=== PATIENT | female | born 1990 ===

== ENCOUNTER 2023-07-26 05:54 | Outpatient (CLI) | payer OTHER, SELFPAY ==
[2023-07-26 09:43] LABS: Abs Immature Grans 0.01 10^3/uL (0.0-0.06); Absolute Basophil Count 0.05 10^3/uL (0.0-0.2); Absolute Eosinophil Count 0.11 10^3/uL (0.0-0.7); Absolute Lymphocyte Count 2.25 10^3/uL (1.2-3.4); Absolute Neutrophil Count 3.95 10^3/uL (1.2-6.7); Basophils % 0.7; Eosinophils % 1.6; HCT 40.7 % (36.0-46.0); HGB 12.9 g/dL (11.2-15.7); Immature Grans % 0.1; Lymphocytes % 33.2; MCH 27.6 pg (27.0-33.0); MCHC 31.7 % (32.0-36.0); MCV 87 fL (80-95); MPV 9.9 fL (8.0-11.0); Monocytes % 5.9; Neutrophils % 58.5; Platelet Count 293 10^3/uL (130-400); RBC 4.68 10^6/uL (3.93-5.22); RDW 13.5 % (11.7-14.6); RDW-SD 42.5 fL; WBC 6.77 10^3/uL (4.4-10.8)
[2023-07-26 10:04] LABS: Hemoglobin A1C 5.4 % (<5.7)
[2023-07-26 10:28] LABS: Cholesterol 232 mg/dL (<200); HDL Cholesterol 40 mg/dL (40-60); LDL CHOLESTEROL 138 mg/dL (<100)
[2023-07-26 10:41] LABS: ALT 35 U/L (14-59); AST 12 U/L (15-37); BUN 11 mg/dL (7-18); Bilirubin, Total 0.2 mg/dL (0.2-1.0); CO2 25.5 mmol/L (21.0-32.0); CREATININE 0.9 mg/dL (0.55-1.02); Chloride 103 mmol/L (98-107); Estimated GFR 86.57 (mL/min/1.73m2); Glucose 91 mg/dL (74-106); Sodium 138 mmol/L (136-145); TSH 2.52 uIU/Ml (0.36-3.74)
[2023-07-26 10:53] LABS: Vitamin D 25 Total 30.5 ng/mL (30-100)
[2023-07-26 10:57] LABS: FREE T4 0.99 ng/dL (0.76-1.46); GGT 18 U/L (5-55); LDH 135 U/L (81-234)
[2023-07-26 17:51] LABS: T3, Total 164 ng/dL (97-169)
[2023-07-26 21:59] LABS: Prolactin 16.7 ng/mL (See Note)
== END 2023-07-26 05:55 | disposition home or self-care (01) ==
LOC: LBO 05:54
PROVIDERS: Visit Provider Family Medicine
DX: Z79.899 Other long term (current) drug therapy (principal); E55.9 Vitamin D deficiency, unspecified
CPT/HCPCS: 36415; 82306; 82947; 83721; 84520; 82247; 82374; 82435; 82465; 82565; 82977; 83036; 83615; 83718; 84132; 84146; 84295; 84439; 84443; 84450; 84460; 84480; 85025

== ENCOUNTER 2023-10-13 10:08 | Outpatient (REF) | payer OTHER, SELFPAY ==
--- OUTSIDE RECORDS SUMMARY | 2023-10-13 10:10 | XMS_ITS | Encounter Summary ---
[place] [address] Care Team Providers Care Building Carpenter Name Role Phone Saurabh Bishop MD Primary Care Provider [phone] Encounter Details Date Type Department Care Team (Late st Contact Info) Description 07/12/2023 Abstract Cardiology at [address] [place] [address] Alexia Barbour, RN Social History Tobacco Use Types Packs/Day Years Used Date Smoking Tobacco: Former Cigarettes 1 10 Smokeless Tobacco: Never Tobacco Cessation:Counseling Given: Not Answered Alcohol Use Standard Drinks/Week Comments Yes 0 (1 standard drink = 0.6 oz pur e alcohol) 3 times a week DH IPV Inpatient Questions Answer Date Recorded Does Anyone Try to Keep You From Having Contact with Others or Doing Things Outside Your Home? no 07/08/2023 Feels Threatened by Someone no 06/26 Feels Unsafe at Home or Work/School no 07/08/2023 Physical Signs of Abuse Present no 07/08/2023 Sex and Gender Information Value Date Recorded Sex Assigned at Not on file Gender Identity Not on file Sexual Orientation Not on file documented as of this encounter Plan of Treatment Not on file documented as of this encounter Visit Diagnoses Not on filedocumented in this encounter Care Teams Building Carpenter Relationship Specialty Start Date End Date Saurabh Bishop MD [address] [place], [place] [id number] PCP - General Family Medicine 07/08/23 documented as of this encounter
--- OUTSIDE RECORDS SUMMARY | 2023-10-13 10:10 | XMS_ITS | Encounter Summary ---
Author Organization [facility] [place] [address] Care Team Providers Care Director Staffing Name Role Phone Saurabh Bishop MD Primary Care Provider [phone] Encounter Details Date Type Department Care Team (Latest Contact Info) Description 09/11/2023 Travel Social History Tobacco Use Types Packs/Day Years Used Date Smoking Tobacco: Former Cigarettes 1 10 Smokeless Tobacco: Never Alcohol Use Standard Drinks/Week Comments Yes 0 [...] on filedocumented in this encounter Care Teams Director Staffing Relationship Specialty Start Date End Date Saurabh Bishop MD [address] [place] [address] PCP - General Family Medicine 07/08/23 documented as of this encounter
--- OUTSIDE RECORDS SUMMARY | 2023-10-13 10:10 | XMS_ITS | Encounter Summary ---
Author Organization Formerly [facility] Address One [facility] [address] Care Team Providers Care Cofounder Name Role Phone Unavailable Primary Care Provider Unavailabl e Encounter Details Date Type Department Care Team (Late st Contact Info) Description 01/01/2013 Interpretation Only Radiology [address] [facility] [id number] Unknown None Social History Tobacco Use Types Packs/Day Years Used Date Smoking Tobacco: Never Assessed Sex and Gender Information Value Date Recorded Sex Assigned at Not on file Gender Identity Not on file Sexual Orientation Not on file documented as of this encounter Plan of Treatment Not on file documented as of this encounter Procedures Procedure Name Priority Date/Time Associated Diagnosis Comments US OB FOLLOW UP MULTIPLE Routine 01/01/2013 3:41 PM EDT documented in this encounter Results * US OB Follow Up Multiple (01/01/2013 3:41 PM EDT) Anatomical Region Laterality Modality Pelvis, Abdomen Ultrasound 01/01/2013 3:41 PM EDT Narrative 01/01/2013 3:41 PM EDT APD Historical Result Principal It Risk And Assurance Senior Manager: ??ALMA DELIA ??LEROY [facility] OBSTETRICAL ULTRASOUND REPORT ? -------- Pat. Name: EDITH BRAUN Cecil ?Study Date: ?? 01/01/2013 4:12pm Pat. No: ?? [id number] ?Referring MD: CESILIA RODRIGUEZ^ABISAI^J LMP: ? 07/29/2012 ?Certification Engineer: ??Hellen VALENTINE RDMS GA by LMP: 22.3 weeks ?, Age: ? 1990, 22 GA by 1st: 22.2 weeks ?GA Selected: ??22.2 weeks (From [facility] U) GA by US: ?ELENA: ?05/06/2013 Hist/Ind: ??COMPLETION OF SURVEY -------- MEASUREMENTS & AGE ? GROWTH EVALUATION Measurement ?? GA ? Range ?Source ?? % for 22.2 Ratios ------- ------- ?? -------- CLINICAL SUMMARY TRANSABDOMINAL IMAGING WAS PERFORMED MARTELL INTRAUTERINE GESTATION IN CEPHALIC PRESENTATION HEART RATE: 157 /bpm. PLACENTAL LOCATION is posterior. INFERIOR TIP OF PLACENTA MEASURES 3.9 CM FROM THE INTERNAL OS. THE AMNIOTIC FLUID VOLUME IS SUBJECTIVELY ?? NORMAL MORPHOLOGY: Images of LONG spine IDENTIFIED, but LIMITED. Stomach, kidneys and bladder IDENTIFIED. MOTION NOTED. MATERNAL OVARIES NOT SEEN ON TODAYS EXAM IMPRESSION: SURVEY INCOMPLETE, SPINE IMAGES STILL LIMITED. Hellen VALENTINE RDMS ? Alma Delia Quinn MD ? <Electronic Signature> 01/02/2013 Procedure Note Unknown - 09/25/2018 APD Historical Result Principal It Risk And Assurance Senior Manager: ALMA DELIA Castellanos [facility] OBSTETRICAL ULTRASOUND REPORT Pat. Name: EDITH BRAUN Study Date: 01/01/2013 4:12pm Pat. No: [id number] Referring MD: CARINE^ABISAI^J LMP: 07/29/2012 Certification Engineer: Hellen VALENTINE RDMS GA by LMP: 22.3 weeks , Age: 1 1990, 22 GA by 1st: 22.2 weeks GA [facility]: [facility] GA by US: ELENA: 05/06/2013 Hist/Ind: COMPLETION OF SURVEY MEASUREMENTS & AGE GROWTH EVALUATION Measurement GA Range Source % for 22.2 Ratios ------- ------- CLINICAL SUMMARY TRANSABDOMINAL IMAGING WAS PERFORMED MARTELL INTRAUTERINE GESTATION IN CEPHALIC PRESENTATION HEART RATE: 157 /bpm. PLACENTAL LOCATION is posterior. INFERIOR TIP OF PLACENTA MEASURES 3.9 CMFROM THE INTERNAL OS. THE AMNIOTIC FLUID VOLUME IS SUBJECTIVELY NORMAL MORPHOLOGY: Images of LONG spine IDENTIFIED, but LIMITED. Stomach, kidneys and bladder IDENTIFIED. MOTION NOTED. MATERNAL OVARIES NOT SEEN ON TODAYS EXAM IMPRESSION: SURVEY INCOMPLETE, SPINE IMAGES STILL LIMITED. JYOTHI BILLS MD <Electronic Signature> 01/02/2013 Unknown IMG US OB ORDERABLES documented in this encounter Visit Diagnoses Not on filedocumented in this encounter
--- OUTSIDE RECORDS SUMMARY | 2023-10-13 10:10 | XMS_ITS | Clinical Summary ---
Author Organization Formerly [facility] [place] [address] Care Team Providers Care Refractory Repairer Name Role Phone Saurabh Bishop MD Primary Care Provider [phone] Allergies Active Allergy Reactions Criticality Noted Date Comments Adhesive Rash Medium 07/08/2023 Iodine Shortness Of Breath,Rash High 07/08/2023 Kiwi (Actinidia Chinensis) Diarrhea Medium 07/08/2023 Lamotrigine Rash Medium 07/08/2023 Jayton Analogues 09/15/2023 Body pain Quetiapine Other (See Comments) High 07/13/2023 Suicidal ideation Medications Medication Sig Dispensed Refills Start Date End Date Status buPROPion SR (Wellbutrin SR) 200 mg SR 12 hr tablet Take 200 mg by mouth 2 times daily. Active gabapentin (Neurontin) 100 mg capsule Take 300 mg by mouth nightly. 08/29/2020 Active Magnesium Oxide 250 mg magnesium Tablet Take 250 mg by mouth Daily @ 0600. Active VITAMIN B COMPLEX ORAL Take 1 capsule by mouth Daily @ 0600. Active famotidine (Pepcid) 20 mg tablet Take 20 mg by mouth 2 times daily. Active brexpiprazole (Rexulti) 3 mg tablet Take 1.5 tablets by mouth Daily @ 0600. 10/04/2022 Active risperiDONE (RisperDAL) 1 mg tablet Take 1 mg by mouth 2 times daily. Active albuteroL 90 mcg/actuation inhaler (HFA) Inhale 2 puffs into the lungs 4 times daily. Active diazePAM (Valium) 5 mg tablet Take 2.5 mg by mouth once as needed. 08/13/2022 Active traZODone (Desyrel) 50 mg tablet Take 50 mg by mouth nightly as needed for Sleep. Active Cholecalciferol, Vitamin D3, 125 mcg (5,000 unit) Capsule Take 5,000 Units by mouth Daily @ 0600. Active acetaminophen (Tylenol) 500 mg tablet Take 1,000 mg by mouth every 6 hours as needed for Pain. Active brexpiprazole (Rexulti) 3 mg tablet Take 1.5 mg by mouth daily. Active bupropion HCl (WELLBUTRIN XL ORAL) Take 100 mg by mouth daily. Active hydrOXYzine (Atarax) 25 mg tablet Take 25 mg by mouth nightly. Active magnesium carb,citrate,oxide (MAGNESIUM COMPLEX ORAL) Take 1 tablet by mouth daily. Active ubiquinone (Ubiquinone) 10 mg capsule Take 100 mg by mouth 2 times daily. Active TURMERIC ORAL Take 1 tablet by mouth daily. Active melatonin 5 mg tablet Take 5 mg by mouth nightly as needed. Active cetirizine (ZyrTEC) 10 mg tablet Take 10 mg by mouth daily. Active loratadine (Claritin) 10 mg Tablet Take 10 mg by mouth daily. Active risperiDONE (RisperDAL) 0.25 mg tablet Take 0.25-1 mg by mouth daily as needed. 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 Rare PAC's/PVC's. Symptoms correlated with sinus tachycardia. b. Echocardiogram 10/14/2008: Normal Biventricular function with LVEF=60-65%. No significant valvular disease. Encounters Date Type Department Care Team Description 09/15/2023 3:20 PM EDT Office Visit Cardiology at [address] [address] Julius Mcrae MD Near syncope 09/15/2023 Travel 09/11/2023 Travel 09/06/2023 Abstract Cardiology at [address] [address] Flor Garcia RN from Last 3 Months Family History Medical History Relation Comments Bipolar Disorder Brother Obesity Brother Sleep Apnea Brother Arrhythmia Father Bipolar Disorder Father Cerebrovascular Accident Father Coronary Artery Disease Father Hyperlipidemia Father Hypertension Father Myocardial Infarction Father Rheumatoid Arthritis Mother Abdominal Aortic Aneurysm Paternal Grandmother No Known Problems Son Relation Status Comments Brother Father Alive Mother Alive Paternal Grandmother Son Alive Social History Tobacco Use Types Packs/Day Years [...] on file Sexual Orientation Not on file Last Filed Vital Signs Vital Sign Reading Time Taken Comments Blood Pressure 123/93 09/15/2023 3:42 PM EDT Pulse 96 09/15/2023 3:33 PM EDT per e cg Temperature 36.7 ??C (98.1 ??F) 07/08/2023 9:54 PM ED T Respiratory Rate 18 07/09/2023 1:00 AM EDT Oxygen Saturation 99% 07/09/2023 1:00 AM EDT Inhaled Oxygen Concentration - - Weight 110.2 kg (243 lb) 09/15/2023 3:33 PM EDT Height 175.3 cm (5' 9) 09/15/2023 3:33 PM EDT Body Mass Index 35.88 09/15/2023 3:33 PM EDT Plan of Treatment Health Maintenance Due Date Last Done Comments HIV screen 2008 Hepatitis C Screening 2008 Lipid Screening 2008 Hepatitis B vaccine (0-59 yrs) (1) 2009 Tdap adult 2009 Tetanus vaccine 2009 HPV test 2020 PAP Smear 2020 Covid-19 Vaccine ( season) 2022 Influenza (Flu) vaccine (1 o f 1 - Influenza standard series) 11/27/2023 Procedures Procedure Name Priority Date/Time Associated Diagnosis Comments ECG SCAN 09/15/2023 12:00 AM EDT from Last 3 Months Results * Scan Doc: ECG (09/15/2023 12:00 AM EDT) Narrative 09/15/2023 12:00 AM EDT Ordered by an unspecified provider. Scanning Provider MEDIA MGR SCAN EXT O RDR/RSLT from Last 3 Months Care Teams Refractory Repairer Relationship Specialty Start Date End Date Saurabh Bishop MD [address] [place], [place] [id number] PCP - General Family Medicine 07/08/23
--- OUTSIDE RECORDS SUMMARY | 2023-10-13 10:10 | XMS_ITS | Encounter Summary ---
Author Organization [facility] [place] [address] Care Team Providers Care Ethanol Operations Manager Name Role Phone Saurabh Bishop MD Primary Care Provider [phone] Encounter Details Date Type Department Care Team (Latest Contact Info) Description 07/08/2023 Travel Social History Tobacco Use Types Packs/Day Years Used Date Smoking Tobacco: Never Smokeless Tobacco: Never Alcohol Use Standard Drinks/Week [...] on filedocumented in this encounter Care Teams Ethanol Operations Manager Relationship Specialty Start Date End Date Saurabh Bishop MD [address] [place] [address] PCP - General Family Medicine 07/08/23 documented as of this encounter
--- OUTSIDE RECORDS SUMMARY | 2023-10-13 10:10 | XMS_ITS | Encounter Summary ---
[place] [address] Care Team Providers Care Delivery Driver/Customer Service Name Role Phone Unavailable Primary Care Provider Unavailabl e Encounter Details Date Type Department Care Team (Late st Contact Info) Description 05/10/2013 Orders Only Radiology and Cardiology Results [address] [place] [address] Apd Conversion, Results Provider, Social History Tobacco Use Types Packs/Day Years Used Date Smoking Tobacco: Never Assessed Sex and Gender Information Value Date Recorded Sex Assigned at Not on file Gender Identity Not on file Sexual Orientation Not on file documented as of this encounter Plan of Treatment Not on file documented as of this encounter Procedures Procedure Name Priority Date/Time Associated Diagnosis Comments TYPE AND SCREEN ([facility]) Routine 05/10/2013 6:04 AM EST documented in this encounter Results * (ABNORMAL) Type and screen ([facility]) (05/10/2013 6:04 AM EST) ABO Grouping O(Externa l Lab) ABO ALYSON S[place] DAY CONVERSION Rh POSITIVE( External Lab) ALYS[place] DAY CONVERSION AB Screen Interp NEGATIVE( External Lab) NEGATIVE ALYSON S[place] DAY CONVERSION Armband Identification [id number]( External Lab) ALYSON [place] DAY CONVERSION 05/10/2013 6:04 AM EST Results Provider Apd Conversion MD BLOOD BANK LAB ORDERABLES ALYSON WILIAM DAY CONVERSION documented in this encounter Visit Diagnoses Not on filedocumented in this encounter
--- OUTSIDE RECORDS SUMMARY | 2023-10-13 10:10 | XMS_ITS | Encounter Summary ---
Author Organization [facility] Address [facility] [place] [address] Care Team Providers Care Manager Storage Name Role Phone Unavailable Primary Care Provider Unavailabl e Reason for Visit * Reason Comments Skin Check Encounter Details Date Type Department Care Team (Late st Contact Info) Description 11/21/2013 2:00 PM EDT Office Visit Dermatology at [facility] [address] [place] [address] Becky Huffman MD [facility] DR [facility] ASTUDILLO[facility] [address] Congenital nevus (Primary Dx); Multiple benign nevi; Family history of basal cell carcinoma Discharge Disposition: Home Social History Tobacco Use Types Packs/Day Years Used Date Smoking Tobacco: Former Sex and Gender Information Value Date Recorded Sex Assigned at Not on file Gender Identity Not on file Sexual Orientation Not on file documented as of this encounter Progress Notes * Thomas Tellez MD - 11/23/2013 11:54 AM EDT I directly supervised Dr. Huffman in the care of this patient. I saw and evaluated this patient with Dr. Huffman. She presented the history and physical exam detailsto me, then we saw the patient together and I confirmed these findings. I agree with details as written. My physical examination confirms Dr. Huffman's findings. The assessment and plan were formulated in discussion with me at the time of visit and I agree with them as documented. THOMAS TELLEZ MD Staff Physician * Becky Huffman MD - 11/21/2013 1:59 PM EDT Images from the original note were not included. DERMATOLOGY - NEW PATIENT NOTE Date of service: 11/21/2013 Ericka Horowitz : 1990 Dermatology Resident Note: Becky Huffman MD, MPH Chief Problem: Chief Complaint Patient presents with ??? Skin Check HPI: Ms. Ericka Horowitz is a 23 y.o. female. This is a new patient to me. Seen in consultation at [facility]ond Terrell MD specifically for the evaluation and management of the above problem. Here today for evaluation of a changing mole on her abdomen, which has been present since that she believes is enlarging. The lesion is currently asymptomatic (no pain, bleeding or pruritus at the site). Reports that during her this mole got bigger. Also reports she has a mole on her right taoism present since that is bothersome to her. Reports that it bleeds when traumatized. She is interested in having this mole removed. She has no personal h/o NMSC or melanoma, but her father has had numerous BCCs and SCCs. She has used a tanning bed once in the past, but now is vigilant about sun protection. She is otherwise doing well. Past Skin History: ?? ?eczema ?? + hx tanning bed usage (once) ?? + hx blistering sunburns Medical History: Patient Active Problem List Diagnosis Code ??? CIS - Asthma T999.0 ??? CIS - Chest pain T999.0 ??? CIS - Gastritis T999.0 ??? CIS - Palpitations T999.0 Medications: Current Outpatient Prescriptions on File Prior to Visit Medication Sig Dispense Refill ??? [DISCONTINUED] pantoprazole (PROTONIX) 40 mg tablet ??? [DISCONTINUED] montelukast (SINGULAIR) 10 mg tablet ??? [DISCONTINUED] Norgestimate-Ethinyl Estradiol (ORTHO TRI-CYCLEN LO) 0.18/0.215/0.25 mg-25 mcg Tab Allergies: Allergies Allergen Reactions ??? 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 Skin: Examination of skin from the waist up was performed. This includes examination of the skin ofthe face, ears, neck, chest, axillae, left and right upper extremities, hands, back, and abdomen. Specific skin findings: 1. Left mid-abdomen: 0.7 cm x 0.5 cm orange-brown papule with even pigmentation pattern under dermoscopy. 2. Right upper lateral forehead: 0.7 cm x 0.7 cm pink fleshy papule with erythematous border (see photo). 3. Multiple, 0.3-0.5 cm, medium-orange/brown, evenly-pigmented macules and papules scattered on trunk and extremities. All with regular pigment pattern on dermoscopy. No pigmented lesions suspicious for melanoma. Photo documentation obtained with patient consent. Back: Right upper forehead: Left mid-abdomen: Diagnosis/Assessment/Treatment Plan: 1. Congenital nevus: left mid-abdomen ?? Reassuring under dermoscopy. Photo obtained. Will continue to monitor clinically. ?? Educated that nevi can change during (bigger, change color) due to hormonal factors, but encouraged her to call if this lesion starts to bleed or become symptomatic. 2. Irritated Congential Nevus, ?Atypia: right upper lateral forehead ?? Appropriate for excision due to irritation. Will start PA to ensure insurance coverage prior to scheduling for excision. 3. Multiple benign-appearing nevi: trunk and extremities ?? Consistent with benign nevi, patient reassured ?? Will continue to monitor Reviewed various types of skin cancer and ABCDEs of melanoma. Skin cancer brochure reviewed and given to patient. Follow-up: RTC in 1 year for full skin check. Instructed to call for questions or concerns. LOIS FAJARDO LPN - I am documenting this encounter acting as the scribe for and in the presence of Dr. Becky Huffman I preformed the above scribed service and agree with the accuracy of the documentation in this encounter. Becky Huffman MD, MPH Resident in Dermatology [facility] Patient seen and evaluated with staff wheel alignment technician: Thomas Tellez MD Section of Dermatology [facility] documented in this encounter Plan of Treatment Not on file documented as of this encounter Visit Diagnoses Diagnosis Congenital nevus- Primary Benign neoplasm of skin, site unspecified Multiple benign nevi Benign neoplasm of skin, site unspecified Family history of basal cell carcinoma Family history of other specified malignant neoplasm documented in this encounter
--- OUTSIDE RECORDS SUMMARY | 2023-10-13 10:10 | XMS_ITS | Encounter Summary ---
Author Organization [facility] Address [facility] [place] [address] Care Team Providers Care Corporate Banking Officer Name Role Phone Saurabh Bishop MD Primary Care Provider [phone] Reason for Visit * Reason Comments Tachycardia Syncope and Collapse Near syncope Encounter Details Date Type Department Care Team (Late st Contact Info) Description 09/15/2023 3:20 PM EDT Office Visit Cardiology at [address] [id number] Julius Mcrae MD [facility] [place] [address] Near syncope Social History Tobacco Use Types Packs/Day Years [...] on file documented as of this encounter Last Filed Vital Signs Vital Sign Reading Time Taken Comments Blood Pressure 123/93 09/15/2023 3:42 PM EDT Pulse 96 09/15/2023 3:33 PM EDT per e cg Temperature - - Respiratory Rate - - Oxygen Saturation - - Inhaled Oxygen Concentration - - Weight 110.2 kg (243 lb) 09/15/2023 3:33 PM EDT Height 175.3 cm (5' 9) 09/15/2023 3:33 PM EDT Body Mass Index 35.88 09/15/2023 3:33 PM EDT documented in this encounter Progress Notes * Julius Mcrae MD - 09/15/2023 3:20 PM EDT Images from the original note were not included. CARDIOLOGY NEW OUTPATIENT PRIMARY CARE PROVIDER: Saurabh Bishop MD PROBLEM LIST: Patient Active Problem List Diagnosis Attention deficit disorder with hyperactivity Hyperlipidemia Near syncope Fibromyalgia Chronic GERD Bipolar disorder Congenital nevus Multiple benign nevi Family history of basal cell carcinoma CIS - Asthma MEDICATIONS: Current Outpatient Medications Medication Instructions acetaminophen (TYLENOL) 1,000 mg, Oral, EVERY 6 HOURS PRN albuteroL 90 mcg/actuation inhaler (HFA) 2 puffs, Inhalation, 4 TIMES DAILY brexpiprazole (Rexulti) 3 mg tablet 1.5 tablets, Oral, DAILY brexpiprazole (REXULTI) 1.5 mg, Oral, DAILY bupropion HCl (WELLBUTRIN XL ORAL) 100 mg, Oral, DAILY buPROPion SR (WELLBUTRIN SR) 200 mg, Oral, 2 TIMES DAILY cetirizine (ZYRTEC) 10 mg, Oral, DAILY Cholecalciferol (Vitamin D3) 5,000 Units, Oral, DAILY diazePAM (VALIUM) 2.5 mg, Oral, ONCE PRN famotidine (PEPCID) 20 mg, Oral, 2 TIMES DAILY gabapentin (NEURONTIN) 300 mg, Oral, NIGHTLY hydrOXYzine (ATARAX) 25 mg, Oral, NIGHTLY loratadine (CLARITIN) 10 mg, Oral, DAILY magnesium carb,citrate,oxide (MAGNESIUM COMPLEX ORAL) 1 tablet, Oral, DAILY Magnesium Oxide 250 mg, Oral, DAILY melatonin 5 mg, Oral, NIGHTLY PRN risperiDONE (RISPERDAL) 1 mg, Oral, 2 TIMES DAILY risperiDONE (RISPERDAL) 0.25-1 mg, Oral, DAILY PRN traZODone (DESYREL) 50 mg, Oral, NIGHTLY PRN TURMERIC ORAL 1 tablet, Oral, DAILY ubiquinone (UBIQUINONE) 100 mg, Oral, 2 TIMES DAILY VITAMIN B COMPLEX ORAL 1 capsule, Oral, DAILY Subjective: Patient ID: Ericka Perdomo is a 33 y.o. female. HPI: 33 F presents on referral from GP for lightheadedness and palpitations. She provides a paper copy of her history; please see Media tab for such Her main issues are the following: - Fatigue, preventing her from being as active as she desires and previously was. This has started since late . With this has been associated caloric weight gain - Palpitations: these are describes as tachypalpitations, dating back to when she was 18. These canlast for the better portion of a day, and may be associated with chest pain - Lightheadedness; noted with postural changes as well as bending forward, and with prolonged standing.. Salt intake, abdominal compression have been found to be beneficial. Uses compression stockings as well Evaluations have including multiple echocardiograms, Holter monitors, stress tests, which have beenunremarkable The aforemetnioned symptoms seem to steadily be getting worse. There is concerned raised of POTS and inappropriate sinus tachycardia There has been no longer-term rhythm monitoring Objective: Patient Vitals for the past 24 hrs: Pulse BP 09/15/23 1533 96 125/81 09/15/23 1542 -- (!) 123/93 Gen: pleasant female in NAD Cor: rrr, s1/s2 of nl character and amplitude, no pathologic m/r/g. Estimated RAP not elevated. Carotids without bruit. Pulm: CTAB. Normal diaphragmatic movement without use of accessory muscles Ext: no reticular veins nor varicosities EK06/2023 (ED with CP): normal EKG Assessment and Plan: I provided reassurance that there is likely nothing nefarious from a cardiac standpoint ongoing given the unremarkable evaluation she has had thus far. There has not been a solid evaluation of the rhythm (especially when she has tachypalpitations associated with chest pain), and thus will obtain a loop recorder (1 month). If there is no symptom-arrhythmia correlation found, then consideration of empiric AVNB can be had. However, I am pessimistic about the drug class' role here. She describes a venous pooling pattern by history, but does not have sequelae of such.) I reviewed my suspicion thatall these symptoms may well be a side effect of the psychotropic medications she is on. However, these have been effective mood stabilizers, so empirically discontinuing them is not an option. I would point out that autonomics can be greatly altered by the presence of psychotropic medications, and thus the diagnosis of POTS or any other primary orthostatic syndrome cannot be reached, including with tilt table testing. The first step is to confirm/refute a symptom-arrhythmia or symptom-HR correlation, as mentioned above. In the meantime, she will continue with compression garments, and increasing sodium intake. I would also point out that per her history, she has gained significant weight even with good exercise routines and dietary habits. RTC pending event monitor Julius Mcrae MD documented in this encounter Plan of Treatment Scheduled Orders Name Type Priority Associated Diagnoses Orde r Schedule Cardiac Event Monitor Cardiac Services Routine Near syncope Expected: 09/15/2023, Expires: 03/16/2024 documented as of this encounter Procedures Procedure Name Priority Date/Time Associated Diagnosis Comments ECG SCAN 09/15/2023 12:00 AM EDT documented in this encounter Results * Scan Doc: ECG (09/15/2023 12:00 AM EDT) Narrative 09/15/2023 12:00 AM EDT Ordered by an unspecified provider. Scanning Provider MEDIA MGR SCAN EXT O RDR/RSLT documented in this encounter Visit Diagnoses Diagnosis Near syncope Syncope and collapse documented in this encounter Care Teams Corporate Banking Officer Relationship Specialty Start Date End Date Saurabh Bishpo MD [address] [place] [address] PCP - General Family Medicine 07/08/23 documented as of this encounter
--- OUTSIDE RECORDS SUMMARY | 2023-10-13 10:10 | XMS_ITS | Encounter Summary ---
[place] [address] Care Team Providers Care Professional Skateboarder Name Role Phone Saurabh Bishop MD Primary Care Provider [phone] Reason for Visit * Reason Comments Chest Pain Encounter Details Date Type Department Care Team ([facility] st Contact Info) Description 07/08/2023 9:44 PM EDT - 07/09/2023 1:40 AM EDT Emergency Emergency Department at [address] [id number] Michael Lorenzo MD [address] [place] [id number] Chest pain, unspecified type Discharge Disposition: Home Social History Tobacco Use Types Packs/Day Years Used Date Smoking Tobacco: Never Smokeless Tobacco: Never Tobacco Cessation:Counseling Given: Not [...] Sign Reading Time Taken Comments Blood Pressure 117/68 07/09/2023 1:00 AM EDT Pulse 79 07/09/2023 1:00 AM EDT Temperature 36.7 ??C (98.1 ??F) 07/08/2023 9:54 PM ED T Respiratory Rate 18 07/09/2023 1:00 AM EDT Oxygen Saturation 99% 07/09/2023 1:00 AM EDT Inhaled Oxygen Concentration - - Weight 108.1 kg (238 lb 6.4 oz) 07/08/2023 9:54 PM EDT Height 175.3 cm (5' 9) 07/08/2023 9:54 PM EDT Body Mass Index 35.21 07/08/2023 9:54 PM EDT documented in this encounter Discharge Instructions * Discharge Instructions* Michael Lorenzo MD - 07/09/2023 1:31 AM EDT You were seen in the emergency department for chest pain, your EKG shows no signs of acute damage, your troponins are normal, your x-ray does not show any acute concerns to my read however the official read will come from radiology tomorrow. I would continue taking Tylenol to see if this helps future episodes, you have a referral to cardiology I would call them to ensure that this happens please come back to emergency department if the pain is different or more intense, not going away, especially if it is lasting more than 10 minutes without stopping. Otherwise I would suggest following up with your primary care team as well going forward. * Attachments The following attachments cannot be sent through Care Everywhere. * Chest Pain ([place]izen [place]) documented in this encounter Medications at Time of Discharge Medication Sig Dispensed Refills Start Date End Date gabapentin (Neurontin) 100 mg capsule Take 300 mg by mouth nightly. 08/29/2020 brexpiprazole (Rexulti) 3 mg tablet Take 1.5 tablets by mouth Daily @ 0600. 10/04/2022 diazePAM (Valium) 5 mg tablet Take 2.5 mg by mouth once as needed. 08/13/2022 buPROPion SR (Wellbutrin SR) 200 mg SR 12 hr tablet Take 200 mg by mouth 2 times daily. PNV NO.115/IRON FUMARATE/FA ( #[id number] ACID ORAL) Take by mouth. 07/12/2023 fish oil-omega-3 fatty acids 1,000 mg Capsule Take 2 g by mouth daily. 07/12/2023 krill oil 500 mg Capsule Take by mouth. 0 07/12/2023 ranitidine (ZANTAC) 150 mg Tablet Take 150 mg by mouth 2 times daily. 07/12/2023 documented as of this encounter ED Notes * Michael Lorenzo MD - 07/08/2023 11:34 PM EDT Chief Complaint Patient presents with Chest Pain History obtained from: [] patient [] patient and family [] family [] EMS [] alf paperwork [] External records in Epic reviewed, when available. Additional records obtained from [] also reviewed. HPI Patient is a previously healthy 33-year-old female who has a referral for cardiology due to no inappropriate tachycardia in the past, states she has had daily chest pain for 4 months presents today with chest pain. Patient states that today chest pain was different, she states that she had associated left jaw and left arm pain however those did not seem to be correlating to her chest pain they seem to be separate, chest pain lasted between 30 seconds and 60 seconds and was described as a squeezing pain in the left chest. In the past has occasionally gone to the left shoulder blade, she has nopain at this time. She states that she normally gets chest pain for few seconds that goes away however with the jaw pain in the left arm pain and slight shortness of breath she became worried so wanted to get evaluated. She states exertion does not make it worse, seen does make her shortness of breath worse however she is not having worsening pain with deep breaths. Allergies Allergen Reactions Iodine Shortness Of Breath and Rash Adhesive Rash Kiwi (Actinidia Chinensis) Diarrhea Lamotrigine Rash Pertinent Past Medical and Surgical Histories, Social History, Medications, Allergies were reviewedin the chart. Review of Systems as per HPI. Physical Exam Vitals and nursing note reviewed. Constitutional: General: She is not in acute distress. Appearance: She is well-developed. She is not diaphoretic. HENT: Head: Normocephalic and atraumatic. Right Ear: External ear normal. Left Ear: External ear normal. Nose: Nose normal. No congestion. Eyes: Conjunctiva/sclera: Conjunctivae normal. Cardiovascular: Rate and Rhythm: Normal rate and regular rhythm. Pulses: Normal pulses. Heart sounds: Normal heart sounds. Comments: Radial pulses equal, dopplerable pulses and bilateral feet equal with PT and DP Pulmonary: Effort: Pulmonary effort is normal. No respiratory distress. Breath sounds: Normal breath sounds. No wheezing or rales. Abdominal: General: Abdomen is flat. There is no distension. Palpations: Abdomen is soft. Tenderness: There is no abdominal tenderness. There is no guarding or rebound. Musculoskeletal: Cervical back: Neck supple. Right lower leg: No edema. Left lower leg: No edema. Skin: General: Skin is warm and dry. Neurological: Mental Status: She is alert and oriented to person, place, and time. Cranial Nerves: No cranial nerve deficit. Procedures MDM Presents with less than 1 minute squeezing chest pain in the left chest nonexertional, she has had similar symptoms in the past however not this severe, it seems that these come and spells where theyget slowly better with time. She did have an episode while I was talking to her and she had no changes on her cardiac telemetry during it. Patient able to be PERCed out. He has equal pulses in all extremities, not ripping pain, not currently go to the back, unlikely to be dissection. She does admitthat this seems to be seasonal as every year she seems to have a worsening at about this time of year. She does have a previously placed cardiology referral for inappropriate tachycardia at times. EKG initially showed a possible incomplete right bundle however it was deemed that she had the stick is placed in the wrong spot so this was repeated, second EKG shows rate of 77 with normal intervals sinus rhythm without ST elevations or ST depressions no pathologic Q waves or abnormal inverted T waves. Unable to see EKGs from facilities however the reads on them state normal sinus rhythm as well. Troponin negative at 0-hour samir which technically ruled out but in an abundance of caution To 1 hour which also was within normal limits. She feels better at this time, I did advise coming back for any worsening or any changes, she is agreeable with this plan and is happy to be going home, all questions were answered. She will follow-up with cardiology and her primary care provider. ED Course: XR Chest PA & Lateral (Generic) (Results Pending) Did this case involve critical care? No No diagnosis found. Michael Lorenzo MD 07/09/23 0153 documented in this encounter Plan of Treatment Not on file documented as of this encounter Procedures Procedure Name Priority Date/Time Associated Diagnosis Comments EKG 12-LEAD STAT 07/09/2023 1:19 AM EDT HC VENIPUNCTURE Timed 07/09/2023 12:16 AM EDT XR CHEST PA AND LATERAL STAT 07/09/2023 12:08 AM EDT GOLD TUBE HOLD Routine 07/08/2023 11:21 PM EDT BLUE TUBE HOLD Routine 07/08/2023 11:21 PM EDT HC TROPONIN T STAT 07/08/2023 11:19 PM EDT HC CBC,PLT & AUTO DIFF STAT 11:19 PM EDT HC CHORIONIC GONADOTROPINS, SERUM STAT 07/08/2023 11:19 PM EDT COMPREHENSIVE METABOLIC PANEL (NON-FASTING) STAT 07/08/2023 11:19 PM EDT HEMOGRAM STAT 07/08/2023 11:16 PM EDT DIFFERENTIAL, AUTOMATED STAT 07/08/2023 11:16 PM EDT EKG 12-LEAD STAT 07/08/2023 9:52 PM EDT SCAN DOC - EKG PRELIM 07/08/2023 12:00 AM EDT documented in this encounter Results * EKG 12 Lead (07/09/2023 1:19 AM EDT) Ventricular rate 77 BPM MUSE SYSTEM Atrial Rate 77 BPM MUSE SYSTEM P-R Interval 162 ms MUSE SYSTEM QRS Duration 92 ms MUSE SYSTEM Q-T Interval 398 ms MUSE SYSTEM QTC Calculated (Bezet) 450 ms MUSE SYSTEM Calculated P [place] 39 degrees MUSE SYSTEM Calculated R [place] 39 degrees MUSE SYSTEM Calculated T [place] 43 degrees MUSE SYSTEM INTERPRETATION Normal sinus rhythm Normal ECG When compared with ECG of 08-JUL-2023 21:52, No significant change was found Confirmed by Sulma Crenshaw ([id number]) on 07/12/2023 12:31:56 PM MUSE SYSTEM 07/09/2023 1:19 AM EDT 07/12/2023 12:31 PM EDT Michael Lorenzo MD ECG ORDERABLES MUSE SYSTEM * Troponin (07/09/2023 12:16 AM EDT) Troponin-T HS 8 <=14 ng/L [facility] Comment: This patient's troponin T concentration was determined using the Natali 5th Generation troponin T assay. The 99th percentile for Troponin T for this test is 14 ng/L for females, and 22 ng/L for males. According to the fourth universal definition of myocardial infarction, the term acute myocardial infarction should be used when there is acute myocardial injury with clinical evidence of acute myocardial ischemia and with detection of a rise and/or fall of cardiac troponin values with at least one value above the 99th percentile and at least one of the following: - Symptoms of myocardial ischemia; - New ischemic ECG changes; - Development of pathological Q waves; - Imaging evidence of new loss of viable myocardium or new regional wall motion abnormality in a pattern consistent with an ischemic etiology; - Identification of a coronary thrombus by angiography or autopsy (not for type 2 or 3 MIs) Serial measurement of troponin and the change in troponin concentration over time (delta) is crucial for the diagnosis of acute myocardial infarction. Guidance on the interpretation of the new 5th Generation Troponin T values and the delta troponin value can be found in the [facility] Test Catalog Troponin - [facility] Test Catalog Reference: Fourth [place] Definition of Myocardial Infarction. Journal of the [place] [employer] 2018;72:3568-0498 Blood 07/09/2023 12:1 6 AM EDT 07/09/2023 12:39 AM EDT Narrative Resulting Agency Comment Spec In Lab Michael Lorenzo MD CHEMISTRY ORDERABLES [facility] [address] [place] [address] * XR Chest PA & Lateral (Generic) (07/09/2023 12:08 AM EDT) Anatomical Region Laterality Modality Chest N/A Computed Radiogr aphy Impressions 07/09/2023 8:57 AM EDT No consolidation. No pleural effusion. Cardiac silhouette is within normal limits. Flattening of the hemidiaphragms suggesting COPD. ?? Thank you for letting us participate in the care of this patient. ??If you are a health care provider and have any questions regarding this report, please contact the number below. ??For patients who have questions please contact the health home health caregiver that requested your imaging first. ? Electronically signed by: DARRYL THOMAS MD, [facility] ([phone]), at 07/09/2023 8:57 AM Narrative 07/09/2023 8:57 AM EDT EXAMINATION: XR CHEST PA AND LATERAL (GENERIC) CLINICAL HISTORY: chest pain TECHNIQUE: 2 views chest COMPARISON: None. FINDINGS: No consolidation. No pleural effusion. Cardiac silhouette is within normal limits. Flattening of the hemidiaphragms suggesting COPD. Procedure Note Darryl Thomas MD - 07/09/2023 EXAMINATION: XR CHEST PA AND LATERAL (GENERIC) CLINICAL HISTORY: chest pain TECHNIQUE: 2 views chest COMPARISON: None. FINDINGS: No consolidation. No pleural effusion. Cardiac silhouette is withinnormal limits. Flattening of the hemidiaphragms suggesting COPD. IMPRESSION No consolidation. No pleural effusion. Cardiac silhouette is withinnormal limits. Flattening of the hemidiaphragms suggesting COPD. Thank you for letting us participate in the care of this patient. If youare a health care provider and have any questions regarding this report,please contact the number below. For patients who have questions please contactthe health home health caregiver that requested your imaging first. Electronically signed by: DARRYL THOMAS MD, [facility] ([phone]), at 07/09/2023 8:57 AM Michael Lorenzo MD IMG DX ORDERABLES * Blue Tube HOLD (07/08/2023 11:21 PM EDT) Blue Hold Sample in lab. [facility] Blood No Charge / Unknown 07/08/2023 11:21 PM EDT 07/08/2023 11:[address] [facility] HEMATOLOGY ORDER TYLER [facility] [address] [place] [address] * Gold Tube HOLD (07/08/2023 11:21 PM EDT) [facility] Gold Hold Sample in lab. [facility] Blood No Charge / Unknown 07/08/2023 11:21 PM EDT 07/08/2023 11:[address] [facility] CHEMISTRY ORDERA BLES [facility] [address] [place] [address] * Beta HCG, quantitative (07/08/2023 11:19 PM EDT) Beta hCG Quant <1 mlU/ML [facility] Comment: REFERENCE RANGES NON- FEMALE: ??Less than 5 mIU/mL POSTMENOPAUSAL FEMALE: ??Less than 8 mIU/mL ? -- FEMALES -- Weeks of ? HCG range ??(mIU/mL) ? 3 weeks ? 5.8 - 71.2 ? 4 weeks ? 9.5 - 750 ? 5 weeks ? 217 - 7,138 ? 6 weeks ? 158 - 31,795 ? 7 weeks ? 3,697 - 163,563 ? 8 weeks ? 32,065 - 149,571 ? 9 weeks ? 63,803 - 151,410 ?10 weeks ? 46,509 - 186,977 ?12 weeks ? 27,832 - 210,612 ?14 weeks ? 13,950 - 62,530 ?15 weeks ? 12,039 - 70,971 ?16 weeks ? 9,040 - 56,451 ?17 weeks ? 8,175 - 77,868 ?18 weeks ? 8,799 - 41,094 This result was generated using a Natali Madan immunoassay. ??Results obtained from other methods or manufacturers cannot be used interchangeably with this method. Blood 07/08/2023 11:1 9 PM EDT 07/08/2023 11:22 PM EDT Narrative Resulting Agency Comment Spec In Lab Michael Lorenzo MD CHEMISTRY ORDERABLES [facility] [address] [place] [address] * Troponin (07/08/2023 11:19 PM EDT) Troponin-T HS <6 <=14 ng/L [facility] Comment: This patient's troponin T concentration was determined using the Natali 5th Generation troponin T assay. The 99th percentile for Troponin T for this test is 14 ng/L for females, and 22 ng/L for males. According to the fourth universal definition of myocardial infarction, the term acute myocardial infarction should be used when there is acute myocardial injury with clinical evidence of acute myocardial ischemia and with detection of a rise and/or fall of cardiac troponin values with at least one value above the 99th percentile and at least one of the following: - Symptoms of myocardial ischemia; - New ischemic ECG changes; - Development of pathological Q waves; - Imaging evidence of new loss of viable myocardium or new regional wall motion abnormality in a pattern consistent with an ischemic etiology; - Identification of a coronary thrombus by angiography or autopsy (not for type 2 or 3 MIs) Serial measurement of troponin and the change in troponin concentration over time (delta) is crucial for the diagnosis of acute myocardial infarction. Guidance on the interpretation of the new 5th Generation Troponin T values and the delta troponin value can be found in the [facility] Test Catalog Troponin - [facility] Test Catalog Reference: Fourth [place] Definition of Myocardial Infarction. Journal of the [place] College [employer] 2018;72:2309-8136 Blood 07/08/2023 11:1 9 PM EDT 07/08/2023 11:22 PM EDT Narrative Resulting Agency Comment Spec In Lab Michael Lorenzo MD CHEMISTRY ORDERABLES [facility] [address] [place] [id number] * Comprehensive metabolic panel (non-fasting) (07/08/2023 11:19 PM EDT) Glucose Lvl 98 65 - 199 mg/dL [facility] Comment:Diabetes: >=200 mg/d L plus symptoms BUN 9 8 - 18 mg/dL [facility] Creatinine 0.96 0.70 - 1.20 mg/dL [facility] Sodium 136 135 - 145 mmol/L [facility] Potassium 3.7 3.5 - 5.0 mmol/L [facility] Comment: Please note: ??Patients with WBC >100,000 may have falsely elevated Potassium levels. ??For accurate Potassium quantification in these patients send serum separator tube (gold top) for subsequent determinations. ??Contact the Clinical Chemistry Laboratory if there are any questions. Chloride 100 98 - 107 mmol/L [facility] CO2 26 22 - 31 mmol/L [facility] Anion Gap 10 5 - 15 mmol/L [facility] Calcium 9.8 8.5 - 10.5 mg/dL [facility] Total Protein 7.4 6.1 - 8.0 g/dL [facility] Albumin 4.4 3.2 - 5.2 g/dL [facility] AST 13 0 - 30 unit/L [facility] ALT 15 0 - 30 unit/L [facility] Alk Phos 90 35 - 105 unit/L [facility] Total Bilirubin <0.2 0.2 - 1.3 mg/dL [facility] Estimated GFR 80 >=60 mL/min/1. 73 m?? [facility] Comment: This patient's estimated GFR was calculated using the 2020 CKD-EPI equation. The estimated GFR can vary from the measured GFR by up to 30% in the absence of rapidly changing kidney function. Assessment of the estimated GFR is not appropriate when creatinine concentrations are rapidly changing. For clinical situations in which a more precise estimate of GFR is necessary, consider alternative methods of GFR estimation such as a 24-hour urine creatinine clearance. Assignment of CKD stage 1-5 for patients with an eGFR near the transition point between stages may be based on clinical assessment of muscle mass and symptoms in addition to eGFR. Blood 07/08/2023 11:1 9 PM EDT 07/08/2023 11:22 PM EDT Narrative Resulting Agency Comment Spec In Lab Michael Lorenzo MD CHEMISTRY ORDERABLES [facility] [address] [place] [id number] * (ABNORMAL) Differential, Automated (07/08/2023 11:16 PM EDT) Neutrophils % 49.1 % [facility] Neutr Abs (ANC) 4.47 1.70 - 6.10 x10(3)/mc L [facility] Lymphocytes % 42.3 % [facility] Lymphocytes Abs 3.8(H) 0.9 - 3.2 x10(3)/mc L [facility] Monocytes % 6.4 % [facility] Monocyte Abs 0.6 0.3 - 0.9 x10(3)/mc L [facility] Eosinophils % 1.6 % [facility] Eosinophils Abs 0.2 0.0 - 0.4 x10(3)/mc L [facility] Basophils % 0.4 % [facility] Basophils Abs 0.0 0.0 - 0.1 x10(3)/[facility] Immature Gran % 0.20 % [facility] Comment: Immature granulocytes(IG's)percentage and absolute count will include metamyelocytes, myelocytes, and promyelocytes. Blood smears from CBCs yielding IG's will be scanned manually for concordance. If this scan disagrees with the automated IG or if promyelocytes are noted, a manual differential will be performed. Cadence Gran Abs 0.02 0.00 - 0.04 x10(3)/[facility] Blood 07/08/2023 11:1 6 PM EDT 07/08/2023 11:22 PM EDT Narrative Resulting Agency Comment Spec In Lab Michael Lorenzo MD HEMATOLOGY ORDERABLE S [facility] [address] [place] [address] * (ABNORMAL) Hemogram (07/08/2023 11:16 PM EDT) WBC 9.1 4.0 - 9.5 x10(3)/[facility] RBC 4.57 4.00 - 5.21 x10(6)/[facility] Hemoglobin 12.7 11.7 - 15.5 g/dL [facility] Hematocrit 39.9 35.7 - 45.8 % [facility] MCV 87.3 82.6 - 94.4 fL [facility] MCH 27.8 27.1 - 32.0 pg [facility] MCHC 31.8 31.7 - 35.0 g/dL [facility] Platelets 374(H) 145 - 357 x10(3)/[facility] RDWSD 43.2 37.0 - 46.0 fL [facility] RDWCV 13.5 11.5 - 14.1 % [facility] MPV 9.9 7.6 - 12.9 fL [facility] nRBC % Auto 0.0 % [facility] nRBC Abs Auto 0.000 0.000 - 0.000 x10(3)/mcL [facility] Blood 07/08/2023 11:1 6 PM EDT 07/08/2023 11:22 PM EDT Narrative Resulting Agency Comment Spec In Lab Michael Lorenzo MD HEMATOLOGY ORDERABLE S Performing Organization Address [facility]/ZIP Co de Phone Number [facility] [address] [place] [address] * EKG 12 Lead (07/08/2023 9:52 PM EDT) Ventricular rate 84 BPM MUSE SYSTEM Atrial Rate 84 BPM MUSE SYSTEM P-R Interval 160 ms MUSE SYSTEM QRS Duration 92 ms MUSE SYSTEM Q-T Interval 380 ms MUSE SYSTEM QTC Calculated (Bezet) 449 ms MUSE SYSTEM Calculated P [place] 43 degrees MUSE SYSTEM Calculated R [place] 45 degrees MUSE SYSTEM Calculated T [place] 41 degrees MUSE SYSTEM INTERPRETATION Normal sinus rhythm RSR' or QR pattern in V1 suggests right ventricular conduction delay Borderline ECG No previous ECGs available Confirmed by Sulma Crenshaw ([id number]) on 07/12/2023 12:27:45 PM MUSE SYSTEM 07/08/2023 9:52 PM EDT 07/12/2023 12:27 PM EDT Michael Lorenzo MD ECG ORDERABLES Performing Organization Address [facility] Co de Phone Number MUSE SYSTEM * SCAN DOC - EKG PRELIM (07/08/2023 12:00 AM EDT) Narrative 07/08/2023 12:00 AM EDT Ordered by an unspecified provider. Scanning Provider MEDIA MGR SCAN EXT O RDR/RSLT documented in this encounter Visit Diagnoses Diagnosis Chest pain, unspecified type documented in this encounter Care Teams Professional Skateboarder Relationship Specialty Start Date End Date Saurabh Bishop MD [address] [place] [address] PCP - General Family Medicine 07/08/23 documented as of this encounter
--- OUTSIDE RECORDS SUMMARY | 2023-10-13 10:10 | XMS_ITS | Encounter Summary ---
[place] [address] Care Team Providers Care Invasive Cardiovascular Technologist Name Role Phone Saurabh Bishop MD Primary Care Provider [phone] Reason for Visit * Reason Onset Date Comments Referral 07/13/2023 Dizziness 07/13/2023 Tachycardia 07/13/2023 Encounter Details Date Type Department Care Team (Late st Contact Info) Description 07/13/2023 Telephone Cardiology at [address] [id number] Alexia Barbour, pump operator; Dizziness; Tachycardia Social History Tobacco Use Types Packs/Day Years [...] on file documented as of this encounter Miscellaneous Notes * Telephone Encounter - Alexia Barbour, RN - 07/13/2023 9:53 AM EDT Ericka was referred to this [facility] cardiology clinic by PCP Saurabh Bishop MD, of the [facility]. PCP indicates she requests Dr. 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 Multiple benign nevi 11/21/2013 Family history of basal cell carcinoma 11/21/2013 Supraventricular tachycardia, paroxysmal 07/13/2023 Seasonal allergies 06/26/2019 Fibromyalgia 07/13/2021 Bipolar disorder 06/26/2019 Chronic GERD 06/28/2019 Attention deficit disorder with hyperactivity 07/13/2023 Hyperlipidemia 07/13/2023 Near syncope 07/07/2023 Abnormal EKG 07/13/2023 Resolved Ambulatory Problems Diagnosis Date Noted No Resolved Ambulatory Problems Past Medical History: Diagnosis Date Acne Atypical mole Exercise-induced asthma Former cigarette smoker Pes cavus Current Medications gabapentin (Neurontin) 100 mg capsule Magnesium Oxide 250 mg magnesium Tablet VITAMIN B COMPLEX ORAL famotidine (Pepcid) 20 mg tablet brexpiprazole (Rexulti) 3 mg tablet risperiDONE (RisperDAL) 1 mg tablet albuteroL 90 mcg/actuation inhaler (HFA) diazePAM (Valium) 5 mg tablet traZODone (Desyrel) 50 mg tablet Cholecalciferol, Vitamin D3, 125 mcg (5,000 unit) Capsule buPROPion SR (Wellbutrin SR) 200 mg SR 12 hr tablet * Telephone Encounter - Alexia Barbour RN - 07/13/2023 9:53 AM EDT ----- Message from Sil Marr sent at 07/12/2023 1:10 PM EDT ----- Referral and Encounter Note scanned and indexed. documented in this encounter Plan of Treatment Not on file documented as of this encounter Visit Diagnoses Not on filedocumented in this encounter Care Teams Invasive Cardiovascular Technologist Relationship Specialty Start Date End Date Saurabh Bishop MD [address] [place] [id number] PCP - General Family Medicine 07/08/23 documented as of this encounter
--- OUTSIDE RECORDS SUMMARY | 2023-10-13 10:10 | XMS_ITS | Encounter Summary ---
[place] [address] Care Team Providers Care Thrasher Feeder Name Role Phone Saurabh Bishop MD Primary Care Provider [phone] Encounter Details Date Type Department Care Team (Late st Contact Info) Description 09/06/2023 Abstract Cardiology at [address] [place] [address] Flor Garcia, RN Social History Tobacco Use Types Packs/Day [...] on filedocumented in this encounter Care Teams Thrasher Feeder Relationship Specialty Start Date End Date Saurabh Bishop MD [address] [place] [address] PCP - General Family Medicine 07/08/23 documented as of this encounter
--- OUTSIDE RECORDS SUMMARY | 2023-10-13 10:10 | XMS_ITS | Encounter Summary ---
Author Organization [facility] [place] [address] Care Team Providers Care Airfield Operations Specialist Name Role Phone Unavailable Primary Care Provider Unavailabl e Reason for Visit * Reason Comments Other Encounter Details Date Type Department Care Team (Late st Contact Info) Description 11/28/2013 Telephone Dermatology at [facility] [address] [place] [address] Becky Huffman MD [facility] [place] [address] Social History Tobacco Use Types Packs/Day Years Used Date Smoking Tobacco: Former Sex and Gender Information Value Date Recorded Sex Assigned at Not on file Gender Identity Not on file Sexual Orientation Not on file documented as of this encounter Miscellaneous Notes * Telephone Encounter - Sera Espana - 12/05/2013 3:24 PM EDT Left a message for the pt to check with her insurance company regarding having her lesion surgically excised. Advised to her call with any questions. Sera * Telephone Encounter - Sera Espana - 11/30/2013 2:30 PM EDT Left a message for the pt to call back Sera * Telephone Encounter - Sera Espana - 11/28/2013 8:47 AM EDT Left a message at home and cell nbrs for the pt to call back. Pt will need to contact her insurancecompany to look into her coverage. Sera LUNDY'artem to Lois and Dr. Huffman * Telephone Encounter - Sera Espana - 11/28/2013 8:47 AM EDT Message copied by SERA ESPANA on TueNov 28, 2013 8:47 AM ------ Message from: LOIS FAJARDO Created: TueNov 21, 2013 2:20 PM Regarding: start PA Bhavin Mcnamara, Please start a PA to ensure coverage of surgical excision of benign lesion. See Dr. Huffman's 11/21 note for details. Thank you! documented in this encounter Plan of Treatment Not on file documented as of this encounter Visit Diagnoses Not on filedocumented in this encounter
--- OUTSIDE RECORDS SUMMARY | 2023-10-13 10:10 | XMS_ITS | Encounter Summary ---
Author Organization [facility] [place] [address] Care Team Providers Care Network Systems Integrator Name Role Phone Saurabh Bishop MD Primary Care Provider [phone] Encounter Details Date Type Department Care Team (Latest Contact Info) Description 09/15/2023 Travel Social History Tobacco Use Types Packs/Day [...] on filedocumented in this encounter Care Teams Network Systems Integrator Relationship Specialty Start Date End Date Saurabh Bishop MD [address] [place] [address] PCP - General Family Medicine 07/08/23 documented as of this encounter
--- OUTSIDE RECORDS SUMMARY | 2023-10-13 10:11 | XMS_ITS | Encounter Summary ---
Author Organization [facility] Address [address] [place] [address] Care Team Providers Care Blast Furnace Tender Name Role Phone Armond Terrell MD Primary Care Provider Unava ilable Encounter Details Date Type Department Care Team (Late st Contact Info) Description 03/08/2017 Historical Results Only [facility] - [address] [place], [place] [id number] Sonya Euceda PA-C [address] [place] [address] [place] [address] Social History Tobacco Use Types Packs/Day Years Used Date Smoking Tobacco: Never Assessed Sex and Gender Information Value Date Recorded Sex Assigned at Not on file Gender Identity Female 11/26/2022 16:52 EDT Sexual Orientation Not on file documented as of this encounter Plan of Treatment Not on file documented as of this encounter Procedures Procedure Name Priority Date/Time Associated Diagnosis Comments BORDETELLA PERTUSSIS CULTURE Routine 03/08/2017 14:58 EST documented in this encounter Results * BORDETELLA PERTUSSIS CULTURE (03/08/2017 14:58 EST) [facility] PERTUSSIS CULTURE - [facility] Bordetella pertussis culture: Not recovered Bordetella parapertussis culture: Not recovered TESTING PERFORMED AT [facility]; 03/17/2017 14:58 EST [facility] PERTUSSIS CULTURE - [facility] TESTING PERFORMED AT [facility]; Bordetella parapertussis DNA: Not detected Bordetella holmesii DNA: Not detected Bordetella pertussis DNA: Not detected The performance characteristics of the polymerase chain reaction (PCR) test for Bordetella was validated by the [facility]. ??The U.S. Food and Drug Administration (FDA) has not approved or cleared this test. ??The results are not intended to be used as the sole means for clinical diagnosis or patient management decisions. 03/14/2017 13:54 EST [facility] 03/08/2017 14:5 8 EST 03/08/2017 17:32 EST Sonya Euceda PA-C MICROBIOLOGY - GENERAL ORDERABLES [facility] documented in this encounter Visit Diagnoses Not on filedocumented in this encounter Care Teams Blast Furnace Tender Relationship Specialty Start Date End Date Armond Terrell MD PCP - General 12/18/14 12/07/22 documented as of this encounter
--- OUTSIDE RECORDS SUMMARY | 2023-10-13 10:11 | XMS_ITS | Encounter Summary ---
Author Organization [facility] Address [facility] [place] [address] Care Team Providers Care Research Statistician Name Role Phone Unavailable Primary Care Provider Unavailabl e Encounter Details Date Type Department Care Team (Late st Contact Info) Description 12/13/2012 Interpretation Only Radiology [address] [facility] [place] [id number] Unknown None Social History Tobacco Use Types [...] Priority Date/Time Associated Diagnosis Comments US OB SCREENING MORPHOLOGY Routine 12/13/2012 8:51 AM EDT documented in this encounter Results * US OB Screening Morphology (12/13/2012 8:51 AM EDT) Anatomical Region Laterality Modality Pelvis, Abdomen Ultrasound 12/13/2012 8:51 AM EDT Narrative 12/13/2012 8:51 AM EDT APD Historical Result Principal Cans Vacuum Tester: ??COSME ??JASMYN [facility] OBSTETRICAL ULTRASOUND REPORT ? -------- Pat. Name: APARNAEDITHSSIE ? Study Date: ?? 12/13/2012 9:30am Pat. No: ?? [id number] ?Referring MD: CESILIA RODRIGUEZ^ABISAI^J LMP: ? 07/29/2012 ?Exterior Work Helper: ??Hellen VALENTINE RDMS GA by LMP: 19.6 weeks ?, Age: ? 1990, 22 GA by [facility]: ? GA Selected: ??19.5 weeks (Sonographic) GA by US: ??19.5 weeks ?ELENA: ?05/06/2013 Hist/Ind: ?? SURVEY -------- MEASUREMENTS & AGE ? GROWTH EVALUATION Measurement ?? GA ? Range ?Source ?? % for 19.5 Ratios ------- ------- ?? BPD ??4.4 cm 19.4 wk (17.7-21.1) [place] ??BPD ??49% ?? FL/BPD 0.67 HC ??16.4 cm 19.1 wk (17.6-20.6) [place] ??HC ?? 40% ?? FL/AC ??0.20 AC ??14.9 cm 20.1 wk (18.0-22.2) [place] ??AC ?? 64% ?? HC/AC ??1.10 (1.06 - 1.25) FL ?? 3.0 cm 19.2 wk (17.4-21.0) [place] ??FL ?? 44% ?? CI ? 0.75 (0.70 - 0.86) GA for sonogram 19.5 wk (17.7-21.2) ? Weight Estimate: based on (BPD,HC,AC,FL) Avg ?Weight: 304 gm (260-349) Hadlock : 0lbs, 10oz Normal: 300 gm (250-351) [place] Wt% ? 53% for 19.5 wks -------- CLINICAL SUMMARY TRANSABDOMINAL IMAGING WAS PERFORMED MARTELL INTRAUTERINE GESTATION IN TRANSVERSE SPINE DOWN/UP PRESENTATION HEART RATE: 153 /bpm. PLACENTAL LOCATION is posterior. MARGINAL PREVIA, INFERIOR TIP MEASURES 0.8 CM FROM THE INTERNAL OS. THE AMNIOTIC FLUID VOLUME IS SUBJECTIVELY ?? NORMAL MORPHOLOGY: Intracranial anatomy appears normal. The anterior abdominal wall appears intact. TRANSVERSE Images of spine appear normal, LONG SPINE LIMITED DUE TO POSITION. Four-chamber view of the heart unremarkable. Stomach, kidneys and bladder unremarkable. Upper and lower extremities were seen. Normal umbilical cord insertion site seen. Two perivesical vessels documented. facial profile and coronal views appear normal. MOTION NOTED. This fetus is MALE, patient knows. MATERNAL OVARIES NOT SEEN ON TODAYS EXAM IMPRESSION: SURVEY INCOMPLETE:,LONG SPINE LIMITED, MARGINAL PREVIA. Hellen VALENTINE RDMS ? Cosme Vines MD ? <Electronic Signature> 12/14/2012 Procedure Note Unknown - 09/25/2018 APD Historical Result Principal Cans Vacuum Tester: COSME VINES [facility] OBSTETRICAL ULTRASOUND REPORT Pat. Name: APARNA EDITH N JAM Study Date: 12/13/2012 9:30am Pat. No: [id number] Referring MD: CARINE^ABISAI^Estela LMP: 07/29/2012 Exterior Work Helper: Hellen VALENTINE RDMS GA by LMP: 19.6 weeks , Age: 1 1990, 22 GA by 1st: GA Selected: 19.5 weeks(Sonographic) GA by US: 19.5 weeks ELENA: 05/06/2013 Hist/Ind: SURVEY MEASUREMENTS & AGE GROWTH EVALUATION Measurement GA Range Source % for 19.5 Ratios ------- ------- BPD 4.4 cm 19.4 wk (17.7-21.1) [place] BPD 49% FL/BPD 0.67 HC 16.4 cm 19.1 wk (17.6-20.6) [place] HC 40% FL/AC 0.20 AC 14.9 cm 20.1 wk (18.0-22.2) [place] AC 64% HC/AC 1.10 (1.06 -1.25) FL 3.0 cm 19.2 wk (17.4-21.0) [place]lock FL 44% CI 0.75 (0.70 -0.86) GA for sonogram 19.5 wk (17.7-21.2) Weight Estimate: based on (BPD,HC,AC,FL) Avg Weight: 304 gm (260-349) Hadlock : 0lbs, 10oz Normal: 300 gm (250-351) [place] Wt% 53% for 19.5 wks CLINICAL SUMMARY TRANSABDOMINAL IMAGING WAS PERFORMED MARTELL INTRAUTERINE GESTATION IN TRANSVERSE SPINE DOWN/UPPRESENTATION HEART RATE: 153 /bpm. PLACENTAL LOCATION is posterior. MARGINAL PREVIA, INFERIOR TIP MEASURES0.8 CM FROM THE INTERNAL OS. THE AMNIOTIC FLUID VOLUME IS SUBJECTIVELY NORMAL MORPHOLOGY: Intracranial anatomy appears normal. The anterior abdominal wall appears intact. TRANSVERSE Images of spine appear normal, LONG SPINE LIMITED DUETO POSITION. Four-chamber view of the heart unremarkable. Stomach, kidneys and bladder unremarkable. Upper and lower extremities were seen. Normal umbilical cord insertion site seen. Two perivesical vessels documented. facial profile and coronal views appear normal. MOTION NOTED. This fetus is MALE, patient knows. MATERNAL OVARIES NOT SEEN ON TODAYS EXAM IMPRESSION: SURVEY INCOMPLETE:,LONG SPINE LIMITED, MARGINALPREVIA. JYOTHI BILLS MD <Electronic Signature> 12/14/2012 Unknown IMG US OB ORDERABLES documented in this encounter Visit Diagnoses Not on filedocumented in this encounter
--- OUTSIDE RECORDS SUMMARY | 2023-10-13 10:11 | XMS_ITS | Encounter Summary ---
Author Organization [facility] Address [address] [place] [address] Care Team Providers Care Pouch Making Machine Operator Name Role Phone Saurabh Bishop MD Primary Care Provider [phone] Reason for Visit * Reason Comments Abdominal Pain Diarrhea Emesis Reports days of diar kamron and onset of vomiting. Feels depleted. Noted mucous membranes dry. Encounter Details Date Type Department Care Team (Late st Contact Info) Description 08/05/2023 10:00 EDT - 08/05/2023 14:01 EDT Emergency [facility] Emergency Department [address] [place] [address] Gemini Hickey MD [address] [facility], [address] [place] [address] Abdominal pain, unspecified abdominal location (Primary Dx) Discharge Disposition: Home or Self Care Social History Tobacco Use Types Packs/Day Years Used Date Smoking Tobacco: Never Smokeless Tobacco: Never Alcohol Use Standard Drinks/Week Comments Never 0 (1 standard drink = 0.6 oz pur e alcohol) Interpersonal Safety Answer Date Record ed Physically Hurt Never 10/28/2019 Verbally Threaten Not on file 10/28/2019 Sex and Gender Information Value Date Recorded Sex Assigned at Not on file Gender Identity Female 11/26/2022 16:52 EDT Sexual Orientation Not on file documented as of this encounter Last Filed Vital Signs Vital Sign Reading Time Taken Comments Blood Pressure 118/74 08/05/2023 1300 EDT Pulse - - Temperature 37.1 ??C (98.8 ??F) 08/05/2023 1019 EDT Respiratory Rate 18 08/05/2023 1019 EDT Oxygen Saturation 94% 08/05/2023 1300 EDT Inhaled Oxygen Concentration - - Weight - - Height - - Body Mass Index - - documented in this encounter Functional Status Functional Status Response Date of Assess ment Are you deaf or do you have serious difficulty h earing? No 08/05/2023 documented as of this encounter Discharge Instructions * Discharge Instructions* Gemini Hickey MD - 08/05/2023 13:17 EDT You are seen in the emergency department today for abdominal pain and diarrhea. Your labs showed evidence of mild dehydration, but were otherwise reassuring. Continue to drink plenty of fluids, including calorie and electrolyte containing beverages. You may eat bland foods as tolerated, such as banana, rice, crackers, toast. Once you are tolerating that, you may progress to normal diet as you are comfortable. Follow-up closely with primary care physician as needed. Return to the emergency department if symptoms worsen or you develop new symptoms that concern you * Attachments The following attachments cannot be sent through Care Everywhere. * Abdominal Pain (Northern Irish) documented in this encounter Medications at Time of Discharge Medication Sig Dispensed Refills Start Date End Date albuterol 90 mcg/actuation inhaler ProAir HFA 90 mcg/actuation aerosol inhaler b complex vitamins (VITAMINS B COMPLEX) capsule Take 1 Capsule by mouth daily. brexpiprazole (REXULTI) 1 mg tablet Take 1.5 tablets every day by oral route at bedtime. brexpiprazole (REXULTI) 3 mg tablet Take 1 Tablet by mouth daily. buPROPion (WELLBUTRIN SR) 100 mg SR tablet Take 1 Tablet by mouth daily. buPROPion (WELLBUTRIN SR) 100 mg SR tablet Take 1 Tablet by mouth 2 times daily. 10/01/2022 buPROPion (WELLBUTRIN SR) 100 mg SR tablet Take 1 Tablet by mouth 2 times daily. buPROPion (WELLBUTRIN) 100 mg tablet Take 1 tablet every day by oral route. cholecalciferol, Vitamin D3, 125 mcg (5000 unit) capsule Take 1 Capsule by mouth daily. diazePAM (VALIUM) 5 mg tablet TAKE 1 TABLET 1/2 HOUR PRIOR TO PROCEDURE AND 1 TABLET DURING THE PROCEDURE IF NEEDED 08/13/2022 famotidine (PEPCID) 20 mg tablet Take 1 tablet twice a day by oral route. Magnesium Gluconate 30 mg (550 mg) tablet Take 30 mg by mouth. magnesium oxide (MAG-OX) 250 mg magnesium tablet Take 1 Tablet by mouth daily. nitrofurantoin, macrocrystal-monohydrat e, (MACROBID) 100 mg capsule Take 1 Capsule by mouth 2 times daily. 10 Capsule 11/26/2022 REXULTI 3 mg tablet Take 1 Tablet by mouth daily. 10/04/2022 risperiDONE (RISPERDAL) 0.25 mg tablet Take 1 Tablet by mouth 2 times daily. traZODone (DESYREL) 100 mg tablet Take 1 tablet as needed by oral route at bedtime. documented as of this encounter Discharge Disposition Disposition Code Departure Means Destination Comment s Home or Self Custodial documented in this encounter ED Notes * Gemini Hickey MD - 08/05/2023 0951 EDT Emergency Department Visit Medical Decision Making In summary, patient presents with nausea vomiting diarrhea and abdominal pain. Most likely norovirus. However due to degree of symptoms and concern for dehydration, will place IV, give IV fluids, acetaminophen and ondansetron. Will check electrolytes, reassess. Patient's labs reviewed and overall unremarkable. Patient improved after IV fluids, acetaminophen and ondansetron. Feels comfortable with plan for discharge home at this time, follow-up with PCP, return to the ED if worse. Relevant Data as of 08/05/23 1657 TueAugust 05, 2023 1059 Labs reviewed and notable for normal CBC, overall normal electrolytes, mildly acidotic with low bicarb, concentrated urine. Consistent with mild dehydration and possible ketosis. [] Relevant Data User Index [] Gemini Hickey MD Medical Decision Making Problems Addressed: Abdominal pain, unspecified abdominal location: acute illness or injury Amount and/or Complexity of Data Reviewed Labs: ordered. Decision-making details documented in ED Course. Risk Prescription drug management. Final diagnoses: Abdominal pain, unspecified abdominal location Disposition: Discharged Chief complaint: Abdominal pain and diarrhea HPI Ericka Perdomo is a 33 y.o. female with history of GERD and SVT who presents to the ED for abdominal pain and diarrhea. Patient reports onset of diarrhea 5 days ago after consuming allulose. Shortly following, family developed symptoms of norovirus, with vomiting and diarrhea. She then developed similar symptoms 2 days ago. Had a low-grade fever at the time, just over 100. Was able to drink a small amount, but has been unable to keep significant amounts of fluid and for the past 16 hours. Last night had close to 20 episodes of loose stools and 6 episodes of vomiting. Was not sure if the first episode of vomitinghad some blood-was maroon in color and slimy, but subsequent episodes bilious only. No bloody stools. No recent travel or antibiotic use. Has not been exposed to other types of GI illness, only norovi akil currently. Reports diffuse mild abdominal pain. History of appendectomy at 12. Did have a feverup to 102 yesterday evening. History was provided by: Patient Records reviewed include: Express care note from November 2022 Patient's pertinent PMH, FH, SH were reviewed and edited as necessary. Nursing notes reviewed. A medical screening exam was performed. Physical Exam BP 118/74 Temp 37.1 ??C (98.8 ??F) (Oral) Resp 18 SpO2 94% Physical Exam Constitutional: General: She is not in acute distress. Appearance: She is well-developed. HENT: Head: Normocephalic and atraumatic. Eyes: General: No scleral icterus. Conjunctiva/sclera: Conjunctivae normal. Pupils: Pupils are equal, round, and reactive to light. Cardiovascular: Rate and Rhythm: Normal rate and regular rhythm. Heart sounds: Normal heart sounds. Pulmonary: Effort: Pulmonary effort is normal. No respiratory distress. Breath sounds: Normal breath sounds. No stridor. Abdominal: General: There is no distension. Palpations: Abdomen is soft. Tenderness: There is no abdominal tenderness. There is no guarding. Musculoskeletal: General: No tenderness. Normal range of motion. Cervical back: Normal range of motion and neck supple. Skin: General: Skin is warm and dry. Findings: No erythema. Neurological: Mental Status: She is alert and oriented to person, place, and time. Psychiatric: Behavior: Behavior normal. Thought Content: Thought content normal. Procedures Procedures documented in this encounter Plan of Treatment Not on file documented as of this encounter Procedures Procedure Name Priority Date/Time Associated Diagnosis Comments HOLD GREEN TOP STAT 08/05/2023 10:25 EDT HOLD BLUE TOP STAT 08/05/2023 10:25 EDT COMPLETE BLOOD COUNT AND DIFFERENTIAL STAT 08/05/2023 10:25 EDT COMPREHENSIVE METABOLIC PANEL (CMP) STAT 08/05/2023 10:25 EDT POCT URINE DIPSTICK, VISUAL READ STAT 08/05/2023 10:21 EDT POCT TEST, VISUAL READ STAT 08/05/2023 10:21 EDT documented in this encounter Results * HOLD GREEN TOP (08/05/2023 10:25 EDT) Hold Hold 08/05/2023 11:31 EDT [facility] Blood VENOUS BLOOD / Unknown Venipuncture / Unknown 08/05/2023 10:25 EDT 08/05/2023 10:28 EDT Gemini Hickey MD LAB INFO SERVICE AN D SUPPORT & PHONE RESULT [facility] [address] [place] [id number] * HOLD BLUE TOP (08/05/2023 10:25 EDT) Hold Hold 08/05/2023 11:31 EDT [facility] Blood VENOUS BLOOD / Unknown Venipuncture / Unknown 08/05/2023 10:25 EDT 08/05/2023 10:29 EDT Gemini Hickey MD LAB INFO SERVICE AN D SUPPORT & PHONE RESULT [facility] [address] [place] [address] * (ABNORMAL) COMPREHENSIVE METABOLIC PANEL (CMP) (08/05/2023 10:25 EDT) Sodium 141 136 - 145 mmol/L 08/05/2023 10:55 [facility] Potassium 3.8 3.5 - 5.0 mmol/L 08/05/2023 10:55 [facility] Chloride 109 96 - 110 mmol/L 08/05/2023 10:55 [facility] CO2 Total 19(L) 22 - 32 mmol/L 08/05/2023 10:55 [facility] Glucose 117(H) 70 - 99 mg/dl 08/05/2023 10:55 [facility] BUN 12 10 - 26 mg/dL 08/05/2023 10:55 [facility] Creatinine 0.66 0.52 - 1.04 mg/dL 08/05/2023 10:55 [facility] eGFR 119 >60 mL/min/1.7 3m2 08/05/2023 10:55 [facility] Total Protein 7.6 6.3 - 8.2 g/dL 08/05/2023 10:55 [facility] Albumin 4.3 3.4 - 4.9 g/dL 08/05/2023 10:55 [facility] Alkaline Phosphatase 75 38 - 126 U/L 08/05/2023 10:55 [facility] AST 28 15 - 46 U/L 08/05/2023 10:55 [facility] ALT 38(H) <35 U/L 08/05/2023 10:55 [facility] Bilirubin, Total 0.5 <1.4 mg/dL 08/05/19 10:55 [facility] Calcium 9.0 8.5 - 10.5 mg/dL 08/05/2023 10:55 [facility] Albumin/Globulin Ratio 1.3 1.0 - 2.5 08/05/2023 10:55 [facility] Anion Gap 13 5 - 14 mmol/L 08/05/2023 10:55 [facility] Blood VENOUS BLOOD / Unknown Venipuncture / Unknown 08/05/2023 10:25 EDT 08/05/2023 10:28 EDT Gemini Hickey MD CHEMISTRY & BLOOD G ORDERABLES [facility] [address] [place] [address] * (ABNORMAL) COMPLETE BLOOD COUNT AND DIFFERENTIAL (08/05/2023 10:25 EDT) WBC 8.83 4.00 - 12.40 K/cmm 08/05/2023 10:33 [facility] RBC 4.99 3.86 - 5.04 M/cmm 08/05/2023 10:33 [facility] Hemoglobin 13.9 11.6 - 15.2 g/dL 08/05/2023 10:33 [facility] HCT 42.0 34.9 - 44.4 % 08/05/2023 10:33 [facility] MCV 84 81 - 98 fL 08/05/2023 10:33 [facility] MCH 27.9 26.7 - 33.3 pg 08/05/2023 10:33 [facility] MCHC 33.1 32.1 - 35.9 g/dL 08/05/2023 10:33 [facility] RDW-CV 13.7 <14.7 % 08/05/2023 10:33 [facility] RDW-SD 42.0 <50.4 fl 08/05/2023 10:33 [facility] PLT 325 141 - 377 K/cmm 08/05/2023 10:33 [facility] MPV 9.7 9.5 - 12.7 fL 08/05/2023 10:33 [facility] % Neutrophils 87.3 % 08/05/2023 10:33 [facility] % Lymphocytes 8.7 % 08/05/2023 10:33 [facility] % Monocytes 3.4 % 08/05/2023 10:33 [facility] % Eosinophils 0.0 % 08/05/2023 10:33 [facility] % Basophils 0.3 % 08/05/2023 10:33 [facility] % Immature Grans 0.3 % 08/05/19 10:33 [facility] Absolute Neutrophils 7.70 2.20 - 8.85 K/cmm 08/05/2023 10:33 [facility] Absolute Lymphocytes 0.77(L) 1.09 - 3.30 K/cmm 08/05/2023 10:33 [facility] Absolute Monocytes 0.30 0.10 - 0.80 K/cmm 08/05/2023 10:33 [facility] Absolute Eosinophils 0.00(L) 0.03 - 0.61 K/cmm 08/05/2023 10:33 [facility] ABS Basophils 0.03 0.01 - 0.11 K/cmm 08/05/2023 10:33 [facility] Absolute Immature Grans 0.03 0.00 - 0.06 K/cmm 08/05/2023 10:33 [facility] Type of Differential: Auto 08/05/2023 10:33 [facility] Blood VENOUS BLOOD / Unknown Venipuncture / Unknown 08/05/2023 10:25 EDT 08/05/2023 10:28 EDT Gemini Hickey MD PACKAGES & DNA PROB E ORDERABLES [facility] [address] [place] [address] * (ABNORMAL) POCT URINE DIPSTICK, VISUAL READ (08/05/2023 10:21 EDT) Color, UA Yellow Yellow, Colorless Clarity, UA Clear Clear Glucose, UA Negative Negative mg/dL Bilirubin, UA Negative Negative Ketones, UA Negative Negative mg/dL Spec Grav, UA >=1.030(A) 1.001 - 1.030 Blood, UA Trace(A) Negative pH, UA 6.0 8.5 Protein, UA 1+(A) Negative mg/dL Urobilinogen, UA 0.2 0.2 - 1.0 E.U./dL Nitrite, UA Negative Negative Leuk Esterase Negative Negative Comment Urine URINE SPECIMEN OBTAINED BY CLEAN CATCH PROCEDURE / Unknown 08/05/2023 10:21 EDT Gemini Hickey MD POINT OF CARE TEST ORDERABLES * POCT TEST, VISUAL READ (08/05/2023 10:21 EDT) Test, Urine, POC Negative Negative Control Line Present Yes Background Clear? Yes Urine URINE SPECIMEN OBTAINED BY CLEAN CATCH PROCEDURE / Unknown 08/05/2023 10:21 EDT Gemini Hickey MD POINT OF CARE TEST ORDERABLES documented in this encounter Visit Diagnoses Diagnosis Abdominal pain, unspecified abdominal location- Primary documented in this encounter Administered Medications Inactive Administered Medications - up to 3 most recent administrations Medication Order MAR Action Action Date Dose Rate Site acetaminophen (OFIRMEV) IV solution 1,000 mg 1,000 mg, intravenous, NOW X1, 1 dose, On Tue08/05/23 at 1100, STAT Given 08/05/2023 10:50 EDT 1,000 mg IV lactated ringers BOLUS 1,000 mL 1,000 mL, intravenous, NOW X1, 1 dose, On Tue08/05/23 at 1100, STAT New Bag 08/05/2023 10:51 EDT 1,000 mL IV ondansetron (PF) (ZOFRAN) injection 4 mg 4 mg, intravenous, NOW X1, 1 dose, On Tue08/05/23 at 1100, STAT Given 08/05/2023 10:52 EDT 4 mg IV documented in this encounter Active and Recently Administered Medications Times are shown in EDT. Scheduled Medication Order 08/03/2023 08/04/2023 08/05/2023 acetaminophen (OFIRMEV) IV solution 1,000 mg (COMPLETED) 1,000 mg, intravenous, NOW X1, 1 dose, On Tue08/05/23 at 1100, STAT 1050 (Given - [facility]1105 (Due: Completed - Provider: Sunil Arreola) lactated ringers BOLUS 1,000 mL (COMPLETED) 1,000 mL, intravenous, NOW X1, 1 dose, On Tue08/05/23 at 1100, STAT 1051 (New Bag - Prov ider: Sunil Maxwell)1318 (IV Stopped - Provider: Ivon Huffman RN) ondansetron (PF) (ZOFRAN) injection 4 mg (COMPLETED) 4 mg, intravenous, NOW X1, 1 dose, On Tue08/05/23 at 1100, STAT 1052 (Given - Provid er: [facility] [place]) documented in this encounter Care Teams Pouch Making Machine Operator Relationship Specialty Start Date End Date Saurabh Bishop MD [address] [facility] [address] [place] [address] PCP - General Emergency Medicine 08/05/23 documented as of this encounter
--- OUTSIDE RECORDS SUMMARY | 2023-10-13 10:11 | XMS_ITS | Encounter Summary ---
Author Organization [facility] Address [address] [place] [address] Care Team Providers Care Concrete Products Dispatcher Name Role Phone Armond Terrell MD Primary Care Provider Unava ilable Encounter Details Date Type Department Care Team (Late st Contact Info) Description 09/08/2016 Historical Results Only [facility] - [facility] - [address] [phone] Armond Terrell MD Social History Tobacco Use Types Packs/Day Years Used Date Smoking Tobacco: Never Assessed Sex and Gender Information Value Date Recorded Sex Assigned at Not on file Gender Identity Female 11/26/2022 16:52 EDT Sexual Orientation Not on file documented as of this encounter Plan of Treatment Not on file documented as of this encounter Procedures Procedure Name Priority Date/Time Associated Diagnosis Comments PROGESTERONE Routine 09/08/2016 18:10 EDT C REACTIVE PROTEIN Routine 09/08/2016 18 :10 EDT C REACTIVE PROTEIN Routine 09/08/2016 18 :10 EDT FSH Routine 09/08/2016 18:10 EDT COMPREHENSIVE METABOLIC PANEL (CMP) Routine 09/08/2016 18:10 EDT documented in this encounter Results * FSH (09/08/2016 18:10 EDT) FSH 9.47 mIU/mL 09/08/2016 18:[address] [facility] Comment: RESULT COMMENTS/INTERPRETATION OF RESULTS Follicular Phase: ??2.5 ??- 10.2 mIU/mL Midcycle Phase: ?3.4 ??- 33.4 mIU/mL Luteal phase: ?1.5 ??- 9.1 ??mIU/mL : ?<0.3 mIU/mL Postmenopausal: ?23.0 - 116.3 mIU/mL 09/08/2016 18:1 0 EDT 09/08/2016 18:[address] [facility] - 09/08/2016 18:58 EDT Does PT Have a Latex Allergy? NO Armond Terrell MD CHEMISTRY & BLOOD GA S ORDERABLES Performing Organization Address [facility]/ZIP Co de Phone Number [facility] * C REACTIVE PROTEIN (09/08/2016 18:10 EDT) C-Reactive Protein <2.90 0.0 - 3.0 mg/L 09/08/2016 18:[address] [facility] 09/08/2016 18:1 0 EDT 09/08/2016 18:[address] [facility] - 09/08/2016 18:58 EDT Does PT Have a Latex Allergy? NO Armond Terrell MD CHEMISTRY & BLOOD GA S ORDERABLES [facility] * COMPREHENSIVE METABOLIC PANEL (CMP) (09/08/2016 18:10 EDT) Albumin % 4.3 3.4 - 5.0 g/dL 09/08/2016 18:[address] [facility] ALKALINE PHOSPHATASE - [facility] 79 41 - 126 U/L 09/08/2016 18:[address] [facility] BILIRUBIN TOTAL 0.2 0.0 - 1.0 mg/dL 09/08/2016 18:55 [facility] BUN - [facility] 11 7 - 18 mg/dL 09/08/2016 18:55 [facility] CALCIUM - [facility] 9.7 8.5 - 10.1 mg/dL 09/08/2016 18:55 [facility] Chloride 107 98 - 107 mEq/L 09/08/2016 18:55 [facility] CO2 Total 25 21 - 32 mEq/L 09/08/2016 18:55 [facility] CREATININE 0.82 0.5 - 1.3 mg/dL 09/08/2016 18:55 [facility] eGFR >60 09/08/2016 18:55 [facility] Comment: Chronic renal impairment is defined as GFR <60 Multiply result by 1.210 for patients. eGFR calculated using the IDMS-traceable MDRD Study Equation. ??(effective 01/28/2014) Anion Gap 9 5 - 15 09/08/2016 18:55 [facility] GLUCOSE - [facility] 84 70 - 100 mg/dL 09/08/2016 18:55 [facility] Potassium 4.1 3.5 - 5.0 mEq/L 09/08/2016 18:55 [facility] Sodium 141 135 - 145 mEq/L 09/08/2016 18:55 [facility] TOTAL PROTEIN - [facility] 8.2 6.4 - 8.2 gm/dl 09/08/2016 18:55 [facility] SGOT/AST - [facility] 10 10 - 37 U/L 09/08/2016 18:55 [facility] SGPT/ALT - [facility] 23 12 - 78 U/L 09/08/2016 18:55 [facility] 09/08/2016 18:1 0 EDT 09/08/2016 18:10 [facility] - 09/08/2016 18:58 EDT Does PT Have a Latex Allergy? NO Armond Terrell MD CHEMISTRY & BLOOD GA S ORDERABLES [facility] * (ABNORMAL) C REACTIVE PROTEIN (09/08/2016 18:10 EDT) SED RATE - [facility] 19(H) 1 - 17 mm/hr 09/08/2016 18:[address] [facility] 09/08/2016 18:1 0 EDT 09/08/2016 18:[address] [facility] - 09/08/2016 18:23 EDT Does PT Have a Latex Allergy? NO Armond Terrell MD CHEMISTRY & BLOOD GA S ORDERABLES Performing Organization Address [facility] Co de Phone Number [facility] * PROGESTERONE (09/08/2016 18:10 EDT) Progesterone 0.4 () ng/ml 09/09/2016 14:[address] [facility] Comment: NON- FEMALES: follicular phase: ??<0.2-1.4 ng/mL luteal phase: 3.3-25.6 ng/ml postmenopausal: ??<0.2-0.7 ng/mL ?? FEMALES: first trimester: 11.2-90.0 ng/ml second trimester: 25.6-89.4 ng/ml third trimester: 48.4-422.5 ng/ml ?? ECTOPIC PREGNANCIES: consult pathologist Test Performed by: [place] [address] National Expansion Recruiter: Lit Enriquez MD , Ph D 09/08/2016 18:1 0 EDT 09/08/2016 18:[address] [facility] - 09/09/2016 14:00 EDT Does PT Have a Latex Allergy? NO Armond Terrell MD CHEMISTRY & BLOOD GA S ORDERABLES Performing Organization Address [facility]/ZIP Co de Phone Number [facility] documented in this encounter Visit Diagnoses Not on filedocumented in this encounter Care Teams Concrete Products Dispatcher Relationship Specialty Start Date End Date Armond Terrell MD PCP - General 12/18/14 12/07/22 documented as of this encounter
--- OUTSIDE RECORDS SUMMARY | 2023-10-13 10:11 | XMS_ITS | Encounter Summary ---
Author Organization [facility] [place] [address] Care Team Providers Care Psychiatry Physician Name Role Phone Unavailable Primary Care Provider Unavailabl e Encounter Details Date Type Department Care Team (Late st Contact Info) Description 10/19/2012 Orders Only Radiology and Cardiology Results [address] [place] [address] Apd Conversion, Results Provider, Social [...] Procedure Name Priority Date/Time Associated Diagnosis Comments RPR Routine 10/19/2012 documented in this encounter Results * (ABNORMAL) RPR (10/19/2012) RPR NON REACTIVE(E xternal Lab) NONREACTIVE AL[facility] S[facility] DAY CONVERSION 10/19/2012 Results Provider Apd Conversion IMMUN OLOGY ORDERABLES ALYSON SWAIN DAY CONVERSION documented in this encounter Visit Diagnoses Not on filedocumented in this encounter
--- OUTSIDE RECORDS SUMMARY | 2023-10-13 10:11 | XMS_ITS | Encounter Summary ---
Author Organization [facility] Address [address] [place] [address] Care Team Providers Care Yard Foreman Name Role Phone Armond Terrell MD Primary Care Provider Unava ilable Reason for Visit * Reason Onset Date Comments Results 11/28/2022 Encounter Details Date Type Department Care Team (Late st Contact Info) Description 11/28/2022 Telephone [facility] [address] [phone] [place] [address] [place] [address] [address] [place] [address] Results Social History Tobacco Use Types Packs/Day Years Used Date Smoking Tobacco: Never Assessed Interpersonal Safety Answer Date Record ed Physically Hurt Never 10/28/2019 Verbally Threaten Not on file 10/28/2019 Sex and Gender Information Value Date Recorded Sex Assigned at Not on file Gender Identity Female 11/26/2022 16:52 EDT Sexual Orientation Not on file documented as of this encounter Miscellaneous Notes * Telephone Encounter - Jo Langston MD - 11/28/2022 1103 EDT Urine culture is negative at present. 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 I asked her to feel free to follow up if she experienced any concerning symptoms, and she agrees. documented in this encounter Plan of Treatment Not on file documented as of this encounter Visit Diagnoses Not on filedocumented in this encounter Care Teams Yard Foreman Relationship Specialty Start Date End Date Armond Terrell MD PCP - General 12/18/14 12/07/22 documented as of this encounter
--- OUTSIDE RECORDS SUMMARY | 2023-10-13 10:11 | XMS_ITS | Encounter Summary ---
Author Organization [facility] Address [address] [place] [address] Care Team Providers Care Locomotive Firer Name Role Phone Armond Terrell MD Primary Care Provider Unava ilable Encounter Details Date Type Department Care Team (Late st Contact Info) Description 07/23/2016 Historical Results Only [facility] Radiology Results [address] [place] [address] Sadie Lira CNM [address] [place] [id number] Social History Tobacco Use Types Packs/Day Years Used Date Smoking Tobacco: Never Assessed Sex and Gender Information Value Date Recorded Sex Assigned at Not on file Gender Identity Female 11/26/2022 16:52 EDT Sexual Orientation Not on file documented as of this encounter Plan of Treatment Not on file documented as of this encounter Procedures Procedure Name Priority Date/Time Associated Diagnosis Comments US PELVIS TRANSVAGINAL COMPLETE 07/23/2016 18:30 EDT documented in this encounter Results * US PELVIS TRANSVAGINAL (07/23/2016 18:30 EDT) Anatomical Region Laterality Modality Pelvis Other 07/23/2016 18:3 0 EDT Narrative 07/23/2016 18:36 EDT ? EXAM: ULTRASOUND/TRANSVAGINAL - SCRAP MATERIALS BUYER W/ DO EX. D/ (1828) ? CLINICAL INFORMATION: ? AMENORRHEA WITH PAIN ? INDICATION: AMENORRHEA WITH PAIN A ? TECHNIQUE: ?Transvaginal pelvic ultrasound. Arterial and venous ? spectral waveforms along with color imaging of the ovaries. ? COMPARISON: 01/15/2016. ? FINDINGS: ?The uterus measures 7.4 x 3.7 x 4.6 centimeters. The ? endometrium measures 10.6 mm in thickness. The uterine parenchyma is ? unremarkable. ??No free fluid is seen in the cul-de-sac. The right ? ovary measures 3.4 x 2.1 x 3.2 cm. The right ovarian parenchyma is ? unremarkable. Scattered subcentimeter right ovarian simple follicles ? are noted.The left ovary measures 3.2 x 2.2 x 3.4 cm. Within the left ? ovary, there is a 2 cm area of partially cystic partially solid ? material. Symmetric bilateral ovarian blood flow is noted. ? IMPRESSION: ? 1. Indeterminate 2 cm left ovarian structure, which could reflect a ? complex involuting cyst. Follow-up imaging is recommended to ensure ? resolution. ? REPORT SIGNED IN OTHER VENDOR SYSTEM 07/23/2016 ?Reported By: Kaiser Canales MD ? CC: ? Transcribed Date/Time: 07/23/2016 (1836) ? Tester Equipment: ? Printed Date/Time: 09/09/2018 (0314) ? PAGE 1 ? Signed Report ? Procedure Note Kaiser Canales MD - 01/31/2019 EXAM: ULTRASOUND/TRANSVAGINAL - SCRAP MATERIALS BUYER W/ DO EX. D/ (1828) CLINICAL INFORMATION: AMENORRHEA WITH PAIN INDICATION: AMENORRHEA WITH PAIN A TECHNIQUE: Transvaginal pelvic ultrasound. Arterial and venous spectral waveforms along with color imaging of the ovaries. COMPARISON: 01/15/2016. FINDINGS: The uterus measures 7.4 x 3.7 x 4.6 centimeters. The endometrium measures 10.6 mm in thickness. The uterine parenchymais unremarkable. No free fluid is seen in the cul-de-sac. The right ovary measures 3.4 x 2.1 x 3.2 cm. The right ovarian parenchyma is unremarkable. Scattered subcentimeter right ovarian simplefollicles are noted.The left ovary measures 3.2 x 2.2 x 3.4 cm. Within theleft ovary, there is a 2 cm area of partially cystic partially solid material. Symmetric bilateral ovarian blood flow is noted. IMPRESSION: 1. Indeterminate 2 cm left ovarian structure, which could reflect a complex involuting cyst. Follow-up imaging is recommended to ensure resolution. REPORT SIGNED IN OTHER VENDOR SYSTEM 07/23/2016 Reported By: Kaiser Canales MD CC: Transcribed Date/Time: 07/23/2016 (1836) Tester Equipment: Printed Date/Time: 09/09/2018 (9230) PAGE 1 Signed Report Sadie [facility] ORDERABLES documented in this encounter Visit Diagnoses Not on filedocumented in this encounter Care Teams Locomotive Firer Relationship Specialty Start Date End Date Armond Terrell MD PCP - General 12/18/14 12/07/22 documented as of this encounter
--- OUTSIDE RECORDS SUMMARY | 2023-10-13 10:11 | XMS_ITS | Referral Summary ---
Author Organization [facility] Address [address] [place] [address] Care Team Providers Care Extract Operator Name Role Phone Saurabh Bishop MD Primary Care Provider [phone] Encounters Date Type Department Care Team Description 09/22/2023 13:30 EDT Nurse Only [facility] [address] [place] [address] Nurse, [facility] Near syncope (Primary Dx) 09/22/2023 13:30 EDT Ancillary Procedure [facility] [address] [place] [address] Syncope, unspecified syncope type 09/19/2023 Telephone [facility] [address] [place] [address] Deangelo Ortiz MD Cardiac Testing 08/05/2023 Travel 08/05/2023 10:00 EDT - 08/05/2023 14:01 EDT Emergency [facility] Emergency Department [address] [place] [address] Gemini Hickey MD Abdominal pain, unspecified abdominal location (Primary Dx) Discharge Disposition: Home or Self Care 07/26/2023 Lab Requisition [facility] Pathology & Laboratory Medicine - [facility] [address] [place] [address] Outr Resulting Lab, Provider from Last 3 Months Allergies Active Allergy Reactions Criticality Noted Date Comments Iodinated Contrast Media Shortness Of Breath High 05/27/2022 Iodine Itching,Rash,Shortne ss Of Breath High 07/11/2018 Other reaction(s): Not available CIS - Hivkelvin Kiwi Nausea And Vomiting Low 07/13/2021 Other reaction(s): Not available Lamotrigine Rash Low 10/30/2020 [place] Medium 10/30/2020 Other reaction(s): Not available, Other (See Comments), Unknown/Patient and Family Unable to Define Quetiapine Rash Low 10/30/2020 Other reaction(s): Not available, Other (See Comments) Medications Medication Sig Dispensed Refills Start Date End Date Status traZODone (DESYREL) 100 mg tablet Take 1 tablet as needed by oral route at bedtime. Active risperiDONE (RISPERDAL) 0.25 mg tablet Take 1 Tablet by mouth 2 times daily. Active magnesium oxide (MAG-OX) 250 mg magnesium tablet Take 1 Tablet by mouth daily. Active famotidine (PEPCID) 20 mg tablet Take 1 tablet twice a day by oral route. Active diazePAM (VALIUM) 5 mg tablet TAKE 1 TABLET 1/2 HOUR PRIOR TO PROCEDURE AND 1 TABLET DURING THE PROCEDURE IF NEEDED 08/13/2022 Active cholecalciferol, Vitamin D3, 125 mcg (5000 unit) capsule Take 1 Capsule by mouth daily. Active buPROPion (WELLBUTRIN SR) 100 mg SR tablet Take 1 Tablet by mouth daily. Active buPROPion (WELLBUTRIN) 100 mg tablet Take 1 tablet every day by oral route. Active buPROPion (WELLBUTRIN SR) 100 mg SR tablet Take 1 Tablet by mouth 2 times daily. 10/01/2022 Active buPROPion (WELLBUTRIN SR) 100 mg SR tablet Take 1 Tablet by mouth 2 times daily. Active REXULTI 3 mg tablet Take 1 Tablet by mouth daily. 10/04/2022 Active brexpiprazole (REXULTI) 1 mg tablet Take 1.5 tablets every day by oral route at bedtime. Active brexpiprazole (REXULTI) 3 mg tablet Take 1 Tablet by mouth daily. Active albuterol 90 mcg/actuation inhaler ProAir HFA 90 mcg/actuation aerosol inhaler Active Magnesium Gluconate 30 mg (550 mg) tablet Take 30 mg by mouth. Active b complex vitamins (VITAMINS B COMPLEX) capsule Take 1 Capsule by mouth daily. Active nitrofurantoin, macrocrystal-monohy drate, (MACROBID) 100 mg capsule Take 1 Capsule by mouth 2 times daily. 10 Capsule 11/26/2022 Active Active Problems Problem Noted Date Diagnosed Date Supraventricular tachycardia, paroxysmal (HCC-CM S) 07/13/2023 Chronic GERD 06/28/2019 Immunizations Name Administration Dates Next Due Influenza Vaccine Quad PF 0.5 ml IM (6 mos+) 06/2022 Social History Tobacco Use Types Packs/Day Years Used Date Smoking Tobacco: Never Smokeless Tobacco: Never Tobacco Cessation:Counseling Given: Not Answered Alcohol Use Standard Drinks/Week Comments Never 0 (1 standard drink = 0.6 oz pur e alcohol) Interpersonal Safety Answer Date Record ed Physically Hurt Never 10/28/2019 Verbally Threaten Not on file 10/28/2019 Sex and Gender Information Value Date Recorded Sex Assigned at Not on file Gender Identity Female 11/26/2022 16:52 EDT Sexual Orientation Not on file Last Filed Vital Signs Vital Sign Reading Time Taken Comments Blood Pressure 118/74 08/05/2023 1300 EDT Pulse 81 2023 1713 EST Temperature 37.1 ??C (98.8 ??F) 08/05/2023 1019 EDT Respiratory Rate 18 08/05/2023 1019 EDT Oxygen Saturation 94% 08/05/2023 1300 EDT Inhaled Oxygen Concentration - - Weight 109.8 kg (242 lb) 2023 1713 EST Height 175.3 cm (5' 9) 2023 1713 EST Body Mass Index 35.74 2023 1713 EST Functional Status Functional Status Response Date of Assess ment Are you deaf or do you have serious difficulty h earing? No 08/05/2023 Plan of Treatment Not on file Procedures Procedure Name Priority Date/Time Associated Diagnosis Comments HOLD GREEN TOP STAT 08/05/2023 10:25 EDT HOLD BLUE TOP STAT 08/05/2023 10:25 EDT COMPREHENSIVE METABOLIC PANEL (CMP) STAT 08/05/2023 10:25 EDT COMPLETE BLOOD COUNT AND DIFFERENTIAL STAT 08/05/2023 10:25 EDT POCT URINE DIPSTICK, VISUAL READ STAT 08/05/2023 10:21 EDT POCT TEST, VISUAL READ STAT 08/05/2023 10:21 EDT T3, TOTAL Routine 07/26/2023 9:20 EDT PROLACTIN Routine 07/26/2023 9:20 EDT HEPATITIS C AB W REFLEX TO HCV RNA BY PCR STAT 2023 18:16 EST HIV 1/2 ANTIGEN AND ANTIBODY, 4TH GENERATION STAT 2023 18:16 EST PAP TEST Routine 08/27/2015 from Last 3 Months or Most Recently Relevant to Health Maintenance Results * HOLD GREEN TOP (08/05/2023 10:25 EDT) Hold Hold 08/05/2023 11:31 EDT [facility] Blood VENOUS BLOOD / Unknown Venipuncture / Unknown 08/05/2023 10:25 EDT 08/05/2023 10:28 EDT Gemini Hickey MD LAB INFO SERVICE AN D SUPPORT & PHONE RESULT Performing Organization Address [facility]/ZIP Co de Phone Number [facility] [address] [place] [id number] * HOLD BLUE TOP (08/05/2023 10:25 EDT) Hold Hold 08/05/2023 11:31 EDT [facility] Blood VENOUS BLOOD / Unknown Venipuncture / Unknown 08/05/2023 10:25 EDT 08/05/2023 10:29 EDT Gemini Hickey MD LAB INFO SERVICE AN D SUPPORT & PHONE RESULT Performing Organization Address City/[facility]/ZIP Co de Phone Number [facility] [address] [place] [address] * (ABNORMAL) COMPLETE BLOOD COUNT AND DIFFERENTIAL (08/05/2023 10:25 EDT) WBC 8.83 4.00 - 12.40 K/cmm 08/05/2023 10:33 [facility] RBC 4.99 3.86 - 5.04 M/cmm 08/05/2023 10:33 [facility] Hemoglobin 13.9 11.6 - 15.2 g/dL 08/05/2023 10:33 [facility] HCT 42.0 34.9 - 44.4 % 08/05/2023 10:33 [facility] MCV 84 81 - 98 fL 08/05/2023 10:33 [facility] MCH 27.9 26.7 - 33.3 pg 08/05/2023 10:33 [facility] MCHC 33.1 32.1 - 35.9 g/dL 08/05/2023 10:33 [facility] RDW-CV 13.7 <14.7 % 08/05/2023 10:33 [facility] RDW-SD 42.0 <50.4 fl 08/05/2023 10:33 [facility] PLT 325 141 - 377 K/cmm 08/05/2023 10:33 [facility] MPV 9.7 9.5 - 12.7 fL 08/05/2023 10:33 [facility] % Neutrophils 87.3 % 08/05/2023 10:33 [facility] % Lymphocytes 8.7 % 08/05/2023 10:33 [facility] % Monocytes 3.4 % 08/05/2023 10:33 [facility] % Eosinophils 0.0 % 08/05/2023 10:33 [facility] % Basophils 0.3 % 08/05/2023 10:33 [facility] % Immature Grans 0.3 % 08/05/19 10:33 T [facility] Absolute Neutrophils 7.70 2.20 - 8.85 K/cmm 08/05/2023 10:33 [facility] Absolute Lymphocytes 0.77(L) 1.09 - 3.30 K/cmm 08/05/2023 10:33 [facility] Absolute Monocytes 0.30 0.10 - 0.80 K/cmm 08/05/2023 10:33 [facility] Absolute Eosinophils 0.00(L) 0.03 - 0.61 K/cmm 08/05/2023 10:33 [facility] ABS Basophils 0.03 0.01 - 0.11 K/cmm 08/05/2023 10:33 [facility] Absolute Immature Grans 0.03 0.00 - 0.06 K/cmm 08/05/2023 10:33 [facility] Type of Differential: Auto 08/05/2023 10:33 [facility] Blood VENOUS BLOOD / Unknown Venipuncture / Unknown 08/05/2023 10:25 EDT 08/05/2023 10:28 EDT Gemini Hickey MD PACKAGES & DNA PROB E ORDERABLES [facility] [address] [place] [address] * (ABNORMAL) COMPREHENSIVE METABOLIC PANEL (CMP) (08/05/2023 10:25 EDT) Sodium 141 136 - 145 mmol/L 08/05/2023 10:55 [facility] Potassium 3.8 3.5 - 5.0 mmol/L 08/05/2023 10:55 [facility] Chloride 109 96 - 110 mmol/L 08/05/2023 10:55 [facility] CO2 Total 19(L) 22 - 32 mmol/L 08/05/2023 10:55 [facility] Glucose 117(H) 70 - 99 mg/dl 08/05/2023 10:55 [facility] BUN 12 10 - 26 mg/dL 08/05/2023 10:55 [facility] Creatinine 0.66 0.52 - 1.04 mg/dL 08/05/2023 10:55 [facility] eGFR 119 >60 mL/min/1.7 3m2 08/05/2023 10:55 [facility] Total Protein 7.6 6.3 - 8.2 g/dL 08/05/2023 10:55 [facility] Albumin 4.3 3.4 - 4.9 g/dL 08/05/2023 10:55 [facility] Alkaline Phosphatase 75 38 - 126 U/L 08/05/2023 10:55 [facility] AST 28 15 - 46 U/L 08/05/2023 10:55 [facility] ALT 38(H) <35 U/L 08/05/2023 10:55 [facility] Bilirubin, Total 0.5 <1.4 mg/dL 08/05/19 24 10:55 [facility] Calcium 9.0 8.5 - 10.5 mg/dL 08/05/2023 10:55 [facility] Albumin/Globulin Ratio 1.3 1.0 - 2.5 08/05/2023 10:55 [facility] Anion Gap 13 5 - 14 mmol/L 08/05/2023 10:55 [facility] Blood VENOUS BLOOD / Unknown Venipuncture / Unknown 08/05/2023 10:25 EDT 08/05/2023 10:28 EDT Gemini Hickey MD CHEMISTRY & BLOOD G ORDERABLES [facility] [address] [place] [address] * (ABNORMAL) POCT URINE DIPSTICK, VISUAL READ [...] POCT TEST, VISUAL READ (08/05/2023 10:21 EDT) Pathologist [facility] Test, Urine, POC Negative Negative Control Line Present Yes Background Clear? Yes Urine URINE SPECIMEN OBTAINED BY CLEAN CATCH PROCEDURE / Unknown 08/05/2023 10:21 EDT Gemini Hickey MD POINT OF CARE TEST ORDERABLES * PROLACTIN (07/26/2023 9:20 EDT) Pathologist [facility] Prolactin 16.7 See Note ng/mL 07/26/2023 21:51 EDT [facility] Comment: NOTE: Female Reference Ranges: PHYSIOLOGICAL STATUS ?REFERENCE RANGE ? Postmenopausal ?1.8 - 20.3 ng/mL ?9.7 - 208.5 ng/mL Non- ?2.8 - 29.2 ng/mL Blood VENOUS BLOOD / Unknown 07/26/2023 9:20 EDT 07/26/2023 16:47 EDT Provider Outr Resulting Lab CHEMISTRY & BLOOD GAS ORDERABLES Performing Organization Address [facility] Co de Phone Number [facility] [address] [place] [address] * T3, TOTAL (07/26/2023 9:20 EDT) Pathologist [facility] T3, Total 164 97 - 169 ng/dL 07/26/2023 17:46 EDT [facility] Blood VENOUS BLOOD / Unknown 07/26/2023 9:20 EDT 07/26/2023 16:47 EDT Provider Outr Resulting Lab CHEMISTRY & BLOOD GAS ORDERABLES Performing Organization Address [facility] Co de Phone Number [facility] [address] [place] [address] * HEPATITIS C AB W REFLEX TO HCV RNA BY PCR (2023 18:16 EST) [facility] Hep C Antibody Negative Negative 2023 19:24 EST [facility] Blood VENOUS BLOOD / Unknown Venipuncture / Unknown 2023 18:16 EST 2023 18:18 EST Gibran Parada PA-C CHEMISTRY & BLOOD GA S ORDERABLES Performing Organization Address [facility] Co de Phone Number [facility] [address] [place] [address] * HIV 1/2 ANTIGEN AND ANTIBODY, 4TH GENERATION (2023 18:16 EST) Pathologist [facility] HIV 1 and 2 Antibody/p24 Antigen, 4th Generation Negative Negative 2023 20:11 EST [facility] Comment:If acute HIV-1 infec tion is suspected in a high risk patient, submit plasma specimen for HIV-1 RNA quantitation test. Blood VENOUS BLOOD / Unknown Venipuncture / Unknown 2023 18:16 EST 2023 18:18 EST Gibran Parada PA-C IMMUNOLOGY AND SEROL OGJames ORDERABLES [facility] [address] [place] [address] * PAP TEST (08/27/2015) 08/27/2015 08/28/2015 9:5 8 EDT Narrative [facility] - 09/05/2015 9:25 EDT ----- ------- Name: EDITH BRAUN ?: [birth year] ?Age/Sex: 28/F ?Unit#: [id number] ? Loc: AGO ? Status: REG POV ?? Reg Date: 08/27/15 ? Pt.Phone Number: ? ----- ------- Specimen: [id number] ?STATUS: SOUT ?Spec Date:08/27/15 ? Physician Copies: ?Gardenia Roger MD ?? Tissues: ? Cervical/Endo Pap ?Armond Terrell MD CPT: 90425 ?? Units: ??1 ----- ------- ? CYTOLOGY DIAGNOSIS SPECIMEN ADEQUACY: ?Satisfactory for evaluation. Transformation zone component present. GENERAL CATEGORIZATION: ?Negative for Intraepithelial Lesion or Malignancy DESCRIPTIVE DIAGNOSIS: ??Reactive cellular changes associated with inflammation present (includes typical repair). ----- ------- ORDER QUERIES: LMP: 08/13/15- ? N Post ? N ??PREVIOUS ATYPICAL: N BCP/HRT? N Rad Rx? N IUD? N ??PAP PLUS HPV? N ??REFLEX TO HR-HPV IF ASCUS Y REFLEX TO HPV 16/18 IF HPV POS/PAP NEG N HPV REGARDLESS? N ??RFLX HPV IF LSIL ?? Signed ____(signature on file)____ Ruthie Leigh M.D. 09/05/15 By the signature above, the attending physician certifies that he/she has personally conducted a gross and/or microscopic examination of the described specimens and rendered or confirmed the above diagnosis. Test Performed by [facility], [address] [place] [id number] Ambulance Mechanic: Ruthie Leigh MD PHD ----- ------- Gardenia Roger MD PATHOLOGY ORDERABLES [facility] from Last 3 Months or Most Recently Relevant to Health Maintenance Care Teams Extract Operator Relationship Specialty Start Date End Date Saurabh Bishop MD [address] [facility] [address] [place] [address] PCP - General Emergency Medicine 08/05/23
--- OUTSIDE RECORDS SUMMARY | 2023-10-13 10:11 | XMS_ITS | Encounter Summary ---
Author Organization [facility] Address [address] [place] [address] Care Team Providers Care Vein Access Technician Name Role Phone Armond Terrell MD Primary Care Provider Unava ilable Encounter Details Date Type Department Care Team (Late st Contact Info) Description 09/08/2016 Historical Results Only [facility] Lab - [address] [id number] Armond Terrell MD Social History Tobacco Use [...] Procedure Name Priority Date/Time Associated Diagnosis Comments ESTRADIOL, ADULTS Routine 09/08/2016 18: 10 EDT documented in this encounter Results * ESTRADIOL, ADULTS (09/08/2016 18:10 EDT) Estradiol 61 () pg/ml 09/09/2016 14:00 EDT [facility] Comment: By day in cycle relative to LH peak: Follicular Phase (-12 to -4 days): ??20-144 Midcycle (-3 to +2 days): ? 64-357 Luteal Phase (+4 to +12 days): ??56-214 Postmenopausal: ??0 - 32 ?? Cross reactivity with fulvestrant could lead to falsely elevated estradiol results in patients treated with this drug. Test Performed by: [place] [address] Portable Power Tool Repairer: Lit Enriquez MD , Ph D 09/08/2016 18:1 0 EDT 09/08/2016 18:10 EDT Narrative [facility] - 09/09/2016 14:00 EDT Does PT Have a Latex Allergy? NO Armond Terrell MD CHEMISTRY & BLOOD GA S ORDERABLES [facility] documented in this encounter Visit Diagnoses Not on filedocumented in this encounter Care Teams Vein Access Technician Relationship Specialty Start Date End Date Armond Terrell MD PCP - General 12/18/14 12/07/22 documented as of this encounter
--- OUTSIDE RECORDS SUMMARY | 2023-10-13 10:11 | XMS_ITS | Encounter Summary ---
Author Organization [facility] Address [address] [place] [address] Care Team Providers Care Credit Assistant Name Role Phone Armond Terrell MD Primary Care Provider Unava ilable Encounter Details Date Type Department Care Team (Latest Contact Info) Description 07/23/2016 20:30 EDT - 07/23/2016 23:59 EDT Hospital Encounter [address] [address] Unknown, Provider, Discharge Disposition: Home or Self Care Social History Tobacco Use Types Packs/Day Years Used Date Smoking Tobacco: Never Assessed Sex and Gender Information Value Date Recorded Sex Assigned at Not on file Gender Identity Female 11/26/2022 16:52 EDT Sexual Orientation Not on file documented as of this encounter Discharge Disposition Disposition Code Departure Means Destination Home or Self Usp documented in this encounter Plan of Treatment Not on file documented as of this encounter Visit Diagnoses Not on filedocumented in this encounter Care Teams Credit Assistant Relationship Specialty Start Date End Date Armond Terrell MD PCP - General 12/18/14 12/07/22 documented as of this encounter
--- OUTSIDE RECORDS SUMMARY | 2023-10-13 10:11 | XMS_ITS | Encounter Summary ---
Author Organization [facility] Address [address] [place] [address] Care Team Providers Care Hub Cutter Apprentice Name Role Phone None, Provider Primary Care Provider Unavailabl e Encounter Details Date Type Department Care Team (Latest Contact Info) Description 04/11/2023 Travel Social History Tobacco Use Types Packs/Day [...] on filedocumented in this encounter Care Teams Hub Cutter Apprentice Relationship Specialty Start Date End Date None, Provider PCP - General 04/11/23 08/04/23 documented as of this encounter
--- OUTSIDE RECORDS SUMMARY | 2023-10-13 10:11 | XMS_ITS | Encounter Summary ---
Author Organization [facility] Address [address] [place] [address] Care Team Providers Care Cheese Cooker Name Role Phone Armond Terrell MD Primary Care Provider Unava ilable Encounter Details Date Type Department Care Team (Late st Contact Info) Description 04/11/2017 Historical Results Only [facility] Radiology Results [address] [place] [address] Earl Quezada, PAArcenioC [address] [place] [address] Social History Tobacco Use Types Packs/Day Years Used Date Smoking Tobacco: Never Assessed Sex and Gender Information Value Date Recorded Sex Assigned at Not on file Gender Identity Female 11/26/2022 16:52 EDT Sexual Orientation Not on file documented as of this encounter Plan of Treatment Not on file documented as of this encounter Procedures Procedure Name Priority Date/Time Associated Diagnosis Comments XR CHEST 2 VIEWS 04/11/2017 11:3 2 EST documented in this encounter Results * XR CHEST 2 VIEWS (04/11/2017 11:32 EST) Anatomical Region Laterality Modality Other 04/11/2017 11:3 2 EST Narrative 04/11/2017 11:35 EST ? EXAM: RADIOLOGY EXPRESS CARE/EXP CARE MELINA EX. D/ (1130) ? CLINICAL INFORMATION: ? COUGH X 6 WEEKS WITH RIB PAIN AND SOB ? INDICATION: COUGH X 6 WEEKS WITH RIB PAIN AND SOB, PERSISTENT COUGH - ? R05 (PRIMARY). ? COMPARISON: None. ? TECHNIQUE: 2 views of the chest were obtained. ? FINDINGS: ? Lungs: Unremarkable. No consolidation. ? Pleural spaces: Unremarkable. No pneumothorax. ? Heart: Unremarkable. No cardiomegaly. ? Mediastinum: Unremarkable. ? Bones/joints: Unremarkable. ? IMPRESSION: ? 1. Normal examination. ? REPORT SIGNED IN OTHER VENDOR SYSTEM 04/11/2017 ?Reported By: Wander Varghese MD ? CC: ? Transcribed Date/Time: 04/11/2017 (1135) ? Urologist: ? Printed Date/Time: 09/13/2018 (5781) ? PAGE 1 ? Signed Report ? Procedure Note Wander Varghese MD - 01/31/2019 EXAM: RADIOLOGY EXPRESS CARE/EXP CARE MELINA EX. D/ (1130) CLINICAL INFORMATION: COUGH X 6 WEEKS WITH RIB PAIN AND SOB INDICATION: COUGH X 6 WEEKS WITH RIB PAIN AND SOB, PERSISTENT COUGH- R05 (PRIMARY). COMPARISON: None. TECHNIQUE: 2 views of the chest were obtained. FINDINGS: Lungs: Unremarkable. No consolidation. Pleural spaces: Unremarkable. No pneumothorax. Heart: Unremarkable. No cardiomegaly. Mediastinum: Unremarkable. Bones/joints: Unremarkable. IMPRESSION: 1. Normal examination. REPORT SIGNED IN OTHER VENDOR SYSTEM 04/11/2017 Reported By: Wander Varghese MD CC: Transcribed Date/Time: 04/11/2017 (1131) Urologist: Printed Date/Time: 09/13/2018 (2091) PAGE 1 Signed Report Earl Quezada PA-C [facility] ING ORDERABLES documented in this encounter Visit Diagnoses Not on filedocumented in this encounter Care Teams Cheese Cooker Relationship Specialty Start Date End Date Armond Terrell MD PCP - General 12/18/14 12/07/22 documented as of this encounter
--- OUTSIDE RECORDS SUMMARY | 2023-10-13 10:11 | XMS_ITS | Clinical Summary ---
Author Organization [facility] Address [address] [place] [address] Care Team Providers Care Energy Operations Vice President Name Role Phone Saurabh Bishop MD Primary Care Provider [phone] Allergies Active Allergy Reactions Criticality Noted Date Comments Iodinated Contrast Media Shortness Of Breath High 05/27/2022 Iodine Itching,Rash,Shortne ss Of Breath High 07/11/2018 Other reaction(s): Not available CIS - Hives Kiwi Nausea And Vomiting Low 07/13/2021 Other reaction(s): Not available Lamotrigine Rash Low 10/30/2020 [place] Medium 10/30/2020 Other reaction(s): Not available, Other [...] paroxysmal (HCC-CM S) 07/13/2023 Chronic GERD 06/28/2019 Encounters Date Type Department Care Team Description 09/22/2023 13:30 EDT Nurse Only [facility] [address] [place] [address], [place] [address]222 Nurse, [facility] Near syncope (Primary Dx) 09/22/2023 13:30 EDT Ancillary Procedure [facility] [address] [place] [address], [place] [id number] Syncope, unspecified syncope type 09/19/2023 Telephone [facility] [address] [place] [address], [place] [id number] Deangelo Ortiz MD Cardiac Testing 08/05/2023 10:00 EDT - 08/05/2023 14:01 EDT Emergency [facility] Emergency Department [address] [place] [address], [place] [id number] Gemini Hickey MD Abdominal pain, unspecified abdominal location (Primary Dx) Discharge Disposition: Home or Self Care 08/05/2023 Travel 07/26/2023 Lab Requisition [facility] Pathology & Laboratory Medicine - [address] [address] Outr Resulting Lab, Provider from Last 3 Months Immunizations Name Administration Dates Next Due Influenza [...] 16:52 EDT Sexual Orientation Not on file Obstetrics History Last Filed Vital Signs Vital Sign Reading [...] Body Mass Index 35.74 2023 1713 EST Plan of Treatment Health Maintenance Due Date Last Done Comments Social Determinants Of Healt h (SDOH) 1990 Depression Screening 2002 Advance Directive 2008 Preventive Care Visit 2008 Hepatitis B Vaccine (1 of 3 - 19+ 3-dose series) 2009 Pertussis (Adult) Immunization 2009 Tetanus (Adult) Immunization 2009 Pap Smear (Cervical Cancer Screening) 08/26/2018 08/27/2015, 07/10/2013, 03/11/2011 Cervical Cancer Screening 2020 HPV/Cotest (Cervical Cancer Screening) 2020 COVID-19 Vaccine (2022-2 4 season) 2022 Influenza Immunization (Adult) (#1) 2023 12/29/2022 HIV Screening Completed 2023 Hepatitis C Screen Completed 2023 HPV Vaccines Aged Out No longer eligi ble based on patient's age to complete this topic Procedures Procedure Name Priority Date/Time Associated Diagnosis [...] 10:25 EDT) Hold Hold 08/05/2023 11:31 EDT [facility] Blood VENOUS BLOOD / Unknown Venipuncture / Unknown 08/05/2023 10:25 EDT 08/05/2023 10:28 EDT Gemini Hickey MD LAB INFO SERVICE AN D SUPPORT & PHONE RESULT Performing Organization Address City/[facility]/ZIP Co de Phone Number [facility] [address] [place] [address] * HOLD BLUE TOP (08/05/2023 10:25 EDT) Hold Hold 08/05/2023 11:31 EDT [facility] Blood VENOUS BLOOD / Unknown Venipuncture / Unknown 08/05/2023 10:25 EDT 08/05/2023 10:29 EDT Gemini Hickey MD LAB INFO SERVICE AN D SUPPORT & PHONE RESULT Performing Organization Address [facility] Co de Phone Number [facility] [address] [place] [address] * (ABNORMAL) COMPLETE BLOOD COUNT AND DIFFERENTIAL (08/05/2023 10:25 EDT) WBC 8.83 4.00 - 12.40 K/cmm 08/05/2023 10:33 [facility] RBC 4.99 3.86 - 5.04 M/cmm 08/05/2023 10:33 [facility] Hemoglobin 13.9 11.6 - 15.2 g/dL 08/05/2023 10:33 [facility] HCT 42.0 34.9 - 44.4 % 08/05/2023 10:33 [facility] MCV 84 81 - 98 fL 08/05/2023 10:33 [facility] MCH 27.9 26.7 - 33.3 pg 08/05/2023 10:33 [facility] MCHC 33.1 32.1 - 35.9 g/dL 08/05/2023 10:33 [facility] RDW-CV 13.7 <14.7 % 08/05/2023 10:33 [facility] RDW-SD 42.0 <50.4 fl 08/05/2023 10:33 [facility] PLT 325 141 - 377 K/cmm 08/05/2023 10:33 [facility] MPV 9.7 9.5 - 12.7 fL 08/05/2023 10:33 [facility] % Neutrophils 87.3 % 08/05/2023 10:33 [facility] % Lymphocytes 8.7 % 08/05/2023 10:33 [facility] % Monocytes 3.4 % 08/05/2023 10:33 [facility] % Eosinophils 0.0 % 08/05/2023 10:33 [facility] % Basophils 0.3 % 08/05/2023 10:33 [facility] % Immature Grans 0.3 % 08/05/19 10:33 [facility] Absolute Neutrophils 7.70 2.20 - 8.85 K/cmm 08/05/2023 10:33 [facility] Absolute Lymphocytes 0.77(L) 1.09 - 3.30 K/cmm 08/05/2023 10:33 [facility] Absolute Monocytes 0.30 0.10 - 0.80 K/cmm 08/05/2023 10:33 [facility] Absolute Eosinophils 0.00(L) 0.03 - 0.61 K/cmm 08/05/2023 10:33 [facility] ABS Basophils 0.03 0.01 - 0.11 K/cmm 08/05/2023 10:33 [facility] Absolute Immature Grans 0.03 0.00 - 0.06 K/cmm 08/05/2023 10:33 [facility] Type of Differential: Auto 08/05/2023 10:33 [facility] Blood VENOUS BLOOD / Unknown Venipuncture / Unknown 08/05/2023 10:25 EDT 08/05/2023 10:28 EDT Gemini Hickey MD PACKAGES & DNA PROB E ORDERABLES [facility] [address] [place] [address] * (ABNORMAL) COMPREHENSIVE METABOLIC PANEL (CMP) (08/05/2023 10:25 EDT) Sodium 141 136 - 145 mmol/L 08/05/2023 10:55 [facility] Potassium 3.8 3.5 - 5.0 mmol/L 08/05/2023 10:55 [facility] Chloride 109 96 - 110 mmol/L 08/05/2023 10:55 [facility] CO2 Total 19(L) 22 - 32 mmol/L 08/05/2023 10:55 [facility] Glucose 117(H) 70 - 99 mg/dl 08/05/2023 10:55 [facility] BUN 12 10 - 26 mg/dL 08/05/2023 10:55 [facility] Creatinine 0.66 0.52 - 1.04 mg/dL 08/05/2023 10:55 [facility] eGFR 119 >60 mL/min/1.7 3m2 08/05/2023 10:55 [facility] Total Protein 7.6 6.3 - 8.2 g/dL 08/05/2023 10:55 [facility] Albumin 4.3 3.4 - 4.9 g/dL 08/05/2023 10:55 [facility] Alkaline Phosphatase 75 38 - 126 U/L 08/05/2023 10:55 [facility] AST 28 15 - 46 U/L 08/05/2023 10:55 [facility] ALT 38(H) <35 U/L 08/05/2023 10:55 [facility] Bilirubin, Total 0.5 <1.4 mg/dL 08/05/19 10:55 [facility] Calcium 9.0 8.5 - 10.5 mg/dL 08/05/2023 10:55 [facility] Albumin/Globulin Ratio 1.3 1.0 - 2.5 08/05/2023 10:55 EDT [facility] Anion Gap 13 5 - 14 mmol/L 08/05/2023 10:55 EDT [facility] Blood VENOUS BLOOD / Unknown Venipuncture / Unknown 08/05/2023 10:25 EDT 08/05/2023 10:28 EDT Gemini Hickey MD CHEMISTRY & BLOOD G ORDERABLES [facility] [address] [place] [address] * (ABNORMAL) POCT URINE DIPSTICK, VISUAL READ [...] TEST ORDERABLES * PROLACTIN (07/26/2023 9:20 EDT) Prolactin 16.7 See Note ng/mL 07/26/2023 21:51 EDT [facility] Comment: NOTE: Female Reference Ranges: PHYSIOLOGICAL STATUS ?REFERENCE RANGE ? Postmenopausal ?1.8 - 20.3 ng/mL ?9.7 - 208.5 ng/mL Non- ?2.8 - 29.2 ng/mL Blood VENOUS BLOOD / Unknown 07/26/2023 9:20 EDT 07/26/2023 16:47 EDT Provider Outr Resulting Lab CHEMISTRY & BLOOD GAS ORDERABLES Performing Organization Address [facility] Co de Phone Number [facility] [address] [place] [address] * T3, TOTAL (07/26/2023 9:20 EDT) [facility] T3, Total 164 97 - 169 ng/dL 07/26/2023 17:46 EDT [facility] Blood VENOUS BLOOD / Unknown 07/26/2023 9:20 EDT 07/26/2023 16:47 EDT Provider Outr Resulting Lab CHEMISTRY & BLOOD GAS ORDERABLES Performing Organization Address [facility] de Phone Number [facility] [address] [place] [address] * HEPATITIS C AB W REFLEX TO HCV RNA BY PCR (2023 18:16 EST) [facility] Hep C Antibody Negative Negative 2023 19:24 EST [facility] Blood VENOUS BLOOD / Unknown Venipuncture / Unknown 2023 18:16 EST 2023 18:18 EST Gibran Parada PA-C CHEMISTRY & BLOOD GA S ORDERABLES Performing Organization Address [facility] Co de Phone Number [facility] [address] [place] [address] * HIV 1/2 ANTIGEN AND ANTIBODY, 4TH GENERATION (2023 18:16 EST) [facility] HIV 1 and 2 Antibody/p24 Antigen, 4th Generation Negative Negative 2023 20:11 EST [facility] Comment:If acute HIV-1 infec tion is suspected in a high risk patient, submit plasma specimen for HIV-1 RNA quantitation test. Blood VENOUS BLOOD / Unknown Venipuncture / Unknown 2023 18:16 EST 2023 18:18 EST Gibran Parada PA-C IMMUNOLOGY AND SEROL OGY ORDERABLES Performing Organization Address [facility] Co de Phone Number [facility] [address] [place] [address] * PAP TEST (08/27/2015) 08/27/2015 08/28/2015 9:5 8 EDT Narrative [facility] - 09/05/2015 9:25 EDT ----- ------- Name: EDITH BRAUN ?: [birth year] ?Age/Sex: 28/F ?Unit#: [id number] ? Loc: AGO ? Status: REG POV ?? Reg Date: 08/27/15 ? Pt.Phone Number: ? ----- ------- Specimen: [id number] ?STATUS: SOUT ?Spec Date:08/27/15 ? Physician Copies: ?Gardenia Roger MD ?? Tissues: ? Cervical/Endo Pap ?Armond Terrell MD CPT: 71360 ?? Units: ??1 ----- ------- ? CYTOLOGY [...] confirmed the above diagnosis. Test Performed by [facility], [address] [place] [address] Training Assistant: Ruthie Leigh MD PHD ----- ------- Gardenia Roger MD PATHOLOGY ORDERABLES [facility] from Last 3 Months or Most Recently Relevant to Health Maintenance Care Teams Energy Operations Vice President Relationship Specialty Start Date End Date Saurabh Bishop MD [address] [place] [address] PCP - General Emergency Medicine 08/05/23
--- OUTSIDE RECORDS SUMMARY | 2023-10-13 10:11 | XMS_ITS | Encounter Summary ---
Author Organization [facility] Address [address] [place] [address] Care Team Providers Care Denture Processor Name Role Phone None, Provider Primary Care Provider Saurabh Garcia MD Primary Care Provider [phone] Encounter Details Date Type Department Care Team (Late st Contact Info) Description 07/26/2023 Lab Requisition [facility] Pathology & Laboratory Medicine - [facility] [address] [place], [place] [address] Outr Resulting Lab, Provider Social History Tobacco Use Types Packs/Day Years [...] on file documented as of this encounter Functional Status Functional Status Response Date of Assess ment Are you deaf or do you have serious difficulty h earing? No 2023 documented as of this encounter Plan of Treatment Not on file documented as of this encounter Procedures Procedure Name Priority Date/Time Associated Diagnosis Comments PROLACTIN Routine 07/26/2023 9:20 EDT T3, TOTAL Routine 07/26/2023 9:20 EDT documented in this encounter Results * T3, TOTAL (07/26/2023 9:20 EDT) T3, Total 164 97 - 169 ng/dL 07/26/2023 17:46 EDT [facility] Blood VENOUS BLOOD / Unknown 07/26/2023 9:20 EDT 07/26/2023 16:47 EDT Provider Outr Resulting Lab CHEMISTRY & BLOOD GAS ORDERABLES Performing Organization Address [facility] Co de Phone Number [facility] [address] [place] [address] * PROLACTIN (07/26/2023 9:20 EDT) Pathologist [facility] Prolactin 16.7 See Note ng/mL 07/26/2023 21:51 EDT [facility] Comment: NOTE: Female Reference Ranges: PHYSIOLOGICAL STATUS ?REFERENCE RANGE ? Postmenopausal ?1.8 - 20.3 ng/mL ?9.7 - 208.5 ng/mL Non- ?2.8 - 29.2 ng/mL Blood VENOUS BLOOD / Unknown 07/26/2023 9:20 EDT 07/26/2023 16:47 EDT Provider Outr Resulting Lab CHEMISTRY & BLOOD GAS ORDERABLES Performing Organization Address [facility]/ZIP Co de Phone Number [facility] [address] [place] [address] documented in this encounter Visit Diagnoses Not on filedocumented in this encounter Care Teams Denture Processor Relationship Specialty Start Date End Date None, Provider PCP - General 04/11/23 08/04/23 Saurabh Bishop MD [address] [address] PCP - General Emergency Medicine 08/05/23 documented as of this encounter
--- OUTSIDE RECORDS SUMMARY | 2023-10-13 10:11 | XMS_ITS | Encounter Summary ---
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 Encounter Details Date Type Department Care Team (Late st Contact Info) Description 2023 17:16 EST - 2023 18:[address] [facility] Emergency Department [address] [place] [address] Mary Muhammad MD [address] [facility] [address] [place] [address] Needlestick injury accident with exposure to body fluid (Primary Dx) Discharge Disposition: Home or Self [...] Sign Reading Time Taken Comments Blood Pressure 128/82 2023 1713 EST Pulse 81 2023 1713 EST Temperature 36.6 ??C (97.9 ??F) 2023 1713 EST Respiratory Rate 12 2023 1713 EST Oxygen Saturation 98% 2023 171 EST Inhaled Oxygen Concentration - - Weight 109.8 kg (242 lb) 2023 171 EST Height 175.3 cm (5' 9) 2023 1713 EST Body Mass Index 35.74 2023 1713 EST documented in this encounter Functional Status Functional Status Response Date of Assess ment Are you deaf or do you have serious difficulty h earing? No 2023 documented as of this encounter Discharge Instructions * Discharge Instructions* Gibran Parada PA-C - 2023 17:46 EST You were seen today for an exposure to bodily fluids from a needlestick. We have drawn labs and will reach out to you with any abnormal results. We do recommend consulting with your employer to corroborate the source patient's labs with your own. We do not recommend prophylaxis at this time due to the extremely low risk of transference of any potential blood-borne pathogens. Follow-up with your PCP and/or employee health to discuss further. * Attachments The following attachments cannot be sent through Care Everywhere. * Exposure: Blood and Body Fluids (Yoruba) documented in this encounter Medications at Time [...] Means Destination Comment s Home or Self Long Term documented in this encounter ED Notes * Luisito Colin RN - 2023 1816 EST Blood drawn via butterfly needle per protocol, yellow tube(s) sent to lab per order. * Mayr Muhammad MD - 2023 1627 EST I reviewed this case with the Advanced Practice Provider. I personally made/approved the managementplan for this patient I evaluated this patient [id number] and provided a substantive portion of the patient's care. My personal evaluation included a face to face history and physical exam and review of relevant records. Based on all of these elements I formulated, and/or participated substantively in the medical decision making, including assessing the level of risk of the patient's complaints and condition, establishing a diagnosis and/or selecting management options. Final diagnoses: Needlestick injury accident with exposure to body fluid * Gibran Parada PA-C - 2023 5587 EST Emergency Department Visit Medical Decision Making Patient reported needlestick from a source patient to her digit right hand earlier today. Denies any other injuries. Irrigated her wound immediately after the exposure. Labs drawn here in the emergency department encouraged follow-up with her employee health team. Medical Decision Making Problems Addressed: Needlestick injury accident with exposure to body fluid: complicated acute illness or injury Amount and/or Complexity of Data Reviewed Labs: ordered. Final diagnoses: Needlestick injury accident with exposure to body fluid Disposition: Discharged Chief complaint: Needlestick HPI Ericka Perdomo is a 33 y.o. female who presents to the ED for a needlestick to her finger froma known source patient. Patient reported irrigating the digit after the injury. History was provided by: Patient Records reviewed include:Dr. Jolley's note dated 04/11/23 Patient's pertinent PMH, FH, SH were reviewed and edited as necessary. Nursing notes reviewed. A medical screening exam was performed. Physical Exam BP 128/82 (BP Cuff Location: Left arm, BP Patient Position: Sitting) Pulse 81 Temp 36.6 ??C (97.9 ??F) (Oral) Resp 12 Ht 175.3 cm (69) Wt (!) 109.8 kg (242 lb) SpO2 98% BMI 35.74 kg/m?? Physical Exam Vitals and nursing note reviewed. Constitutional: General: She is not in acute distress. Appearance: Normal appearance. HENT: Head: Normocephalic and atraumatic. Nose: Nose normal. Mouth/Throat: Mouth: Mucous membranes are moist. Eyes: Extraocular Movements: Extraocular movements intact. Cardiovascular: Rate and Rhythm: Normal rate. Pulses: Normal pulses. Pulmonary: Effort: Pulmonary effort is normal. Musculoskeletal: General: No swelling or deformity. Normal range of motion. Cervical back: Normal range of motion and neck supple. Skin: General: Skin is warm and dry. Neurological: General: No focal deficit present. Mental Status: She is alert and oriented to person, place, and time. Psychiatric: Mood and Affect: Mood normal. Behavior: Behavior normal. Procedures Procedures documented in this encounter Plan of Treatment Not on file documented as of this encounter Procedures Procedure Name Priority Date/Time Associated Diagnosis Comments HEPATITIS C AB W REFLEX TO HCV RNA BY PCR STAT 2023 18:16 EST HEPATITIS B SURFACE ANTIBODY STAT 2023 18:16 EST HIV 1/2 ANTIGEN AND ANTIBODY, 4TH GENERATION STAT 2023 18:16 EST documented in this encounter Results * HEPATITIS B SURFACE ANTIBODY (2023 18:16 EST) Hep B Surface Ab, Quantitative 627.0 See Note mIU/mL 2023 19:24 EST [facility] Comment: Clinical Interpretation of Immune Status: Anti-HBs detected at >10 mIU/mL. Patient is considered to be immune to infection with HBV. It has not been determined what the clinical significance is for values greater than or = 12 mIU/mL, other than the individual is considered to be immune to HBV infection. Reference Range for Hep B Surface Ab, Quant: Positive: ?>= 12.00 mIU/mL Negative: ?< 5.00 mIU/mL Indeterminate: ??>= 5.00 mIU/mL and < 12.00 mIU/mL Blood VENOUS BLOOD / Unknown Venipuncture / Unknown 2023 18:16 EST 2023 18:18 EST Gibran Parada PA-C CHEMISTRY & BLOOD GA S ORDERABLES [facility] [address] [place] [address] * HEPATITIS C AB W REFLEX TO HCV RNA BY PCR (2023 18:16 EST) Hep C Antibody Negative Negative 2023 19:24 EST [facility] Blood VENOUS BLOOD / Unknown Venipuncture / Unknown 2023 18:16 EST 2023 18:18 EST Gibran Parada PA-C CHEMISTRY & BLOOD GA S ORDERABLES Performing Organization Address [facility] Co de Phone Number [facility] [address] [place] [address] * HIV 1/2 ANTIGEN AND ANTIBODY, 4TH GENERATION (2023 18:16 EST) HIV 1 and 2 Antibody/p24 Antigen, 4th Generation Negative Negative 2023 20:11 EST [facility] Comment:If acute HIV-1 infec tion is suspected in a high risk patient, submit plasma specimen for HIV-1 RNA quantitation test. Blood VENOUS BLOOD / Unknown Venipuncture / Unknown 2023 18:16 EST 2023 18:18 EST Gibran Parada PA-C IMMUNOLOGY AND SEROL OGY ORDERABLES Performing Organization Address City/[facility] Co de Phone Number [facility] [address] [place] [address] documented in this encounter Visit Diagnoses Diagnosis Needlestick injury accident with exposure to body fluid- Primary documented in this encounter Care Teams Sewer Pipe Layer Helper Relationship Specialty Start Date End Date None, Provider PCP - General 04/11/23 08/04/23 documented as of this encounter
--- OUTSIDE RECORDS SUMMARY | 2023-10-13 10:11 | XMS_ITS | Encounter Summary ---
Author Organization [facility] Address [address] [place] [address] Care Team Providers Care Director Of Corporate Communications Name Role Phone Armond Terrell MD Primary Care Provider Unava ilable Encounter Details Date Type Department Care Team (Late st Contact Info) Description 02/08/2017 Historical Results Only [facility] - [address] [phone] Armond Terrell MD Social History Tobacco Use [...] Procedure Name Priority Date/Time Associated Diagnosis Comments SHIGA TOXINS 1 & 2 - [facility] Routine 02/08/2017 12:39 EST documented in this encounter Results * SHIGA TOXINS 1 & 2 - [facility] (02/08/2017 12:39 EST) E.COLI SHINGA TOXIN 1 - [facility] E.COLI SHIGA TOXIN 1 NOT DETECTED 02/09/2017 11:07 [facility] E.COLI SHIGA TOXIN 2 - [facility] E.COLI SHIGA TOXIN 2 NOT DETECTED 02/09/2017 11:07 [facility] NO CAMPYLOBACTER SP. ISOLATED 02/11/2017 12:01 [facility] NO SALMONELLA, SHIGELLA, AEROMONAS OR YERSINIA ISOLATED 02/11/2017 12:01 [facility] NO E.COLI [id number] 02/11/2017 12:01 [facility] 02/08/2017 12:3 9 EST 02/08/2017 12:39 EST Armond Terrell MD HEMATOLOGY & PF4 ORD ERABLES [facility] documented in this encounter Visit Diagnoses Not on filedocumented in this encounter Care Teams Director Of Corporate Communications Relationship Specialty Start Date End Date Armond Terrell MD PCP - General 12/18/14 12/07/22 documented as of this encounter
--- OUTSIDE RECORDS SUMMARY | 2023-10-13 10:11 | XMS_ITS | Encounter Summary ---
Author Organization [facility] Address [address] [place] [address] Care Team Providers Care Campus Aide Name Role Phone Saurabh Bishop MD Primary Care Provider [phone] Reason for Referral * Cardiology (Routine/Next Available) - Authorization Not Required Specialty Diagnoses / Procedures Referred By [facility] Referred To Contact Diagnoses Syncope, unspecified syncope type Procedures 30 DAY LABORATORY SPECIALIST Deangelo Ortiz MD [address] [place] [phone] [facility] Referral ID Status Reason Start Date Expiration Date Visits Requested Visits Authorized [id number] Authorization Not Required 09/19/2023 1 1 Reason for Visit * Reason Onset Date Comments Cardiac Testing 09/19/2023 Encounter Details Date Type Department Care Team (Late st Contact Info) Description 09/19/2023 Telephone [facility] - [facility] Cardiology Clinic [address] [place] [address] Deangelo Ortiz MD [address] [place] [address] [phone] Cardiac Testing Social History Tobacco Use Types Packs/Day Years [...] No 08/05/2023 documented as of this encounter Miscellaneous Notes * Telephone Encounter - Tg Sotelo RN - 09/19/2023 1413 EDT Ordered placed as requested. * Telephone Encounter - Jean Hastings - 09/19/2023 1403 EDT Request received from [facility], Dr. Julius Mcrae, for a Cardiac Event Monitor, dx: near syncope ([id number].) Order needed please. Request scanned documented in this encounter Plan of Treatment Pending Results Name Type Priority Associated Diagnoses Date /Time 30 DAY LABORATORY SPECIALIST Cardiac Services Routine Syncope, unspecified syncope type 09/22/2023 13:35 EDT Scheduled Orders Name Type Priority Associated Diagnoses Orde r Schedule 30 DAY LABORATORY SPECIALIST Cardiac Services Routine Syncope, unspecified syncope type Expected: 09/26/2023 (Approximate), Expires: 03/20/2025 documented as of this encounter Visit Diagnoses Diagnosis Syncope, unspecified syncope type- Primary documented in this encounter Care Teams Campus Aide Relationship Specialty Start Date End Date Saurabh Bishop MD [address] [place] [address] PCP - General Emergency Medicine 08/05/23 documented as of this encounter
--- OUTSIDE RECORDS SUMMARY | 2023-10-13 10:11 | XMS_ITS | Encounter Summary ---
Author Organization [facility] [address] Care Team Providers Care Stone Repairer Name Role Phone Unavailable Primary Care Provider Unavailabl e Encounter Details Date Type Department Care Team (Late st Contact Info) Description 10/19/2012 Orders Only Radiology and Cardiology Results [address] [place] [address] Apd Conversion, Results Provider, Social [...] Name Priority Date/Time Associated Diagnosis Comments HEPATITIS B SURFACE ANTIGEN Routine 10/19/2012 documented in this encounter Results * (ABNORMAL) Hepatitis B Surface Antigen (10/19/2012) HepB Surface Ag Negative(E xternal Lab) Negative ALYSON SWAIN DAY CONVERSION 10/19/2012 Results Provider Apd Conversion MD WILFREDO LANDAVERDE ORDERABLES ALYSON SWAIN DAY CONVERSION documented in this encounter Visit Diagnoses Not on filedocumented in this encounter
--- OUTSIDE RECORDS SUMMARY | 2023-10-13 10:11 | XMS_ITS | Encounter Summary ---
[place] [address] Care Team Providers Care Rewinder Operator Name Role Phone Unavailable Primary Care Provider Unavailabl e Encounter Details Date Type Department Care Team (Late st Contact Info) Description 10/19/2012 Orders Only Radiology and Cardiology Results [address] [place] [address] Apd Conversion, Results Provider, Social [...] Comments HEPATITIS B SURFACE ANTIGEN Routine 10/19/2012 5:41 PM EDT documented in this encounter Results * (ABNORMAL) Hepatitis B Surface Antigen (10/19/2012 5:41 PM EDT) HepB Surface Ag Negative(E xternal Lab) Negative CONVERSION 10/19/2012 5:41 PM EDT Results Provider Apd Conversion MD WILFREDO LANDAVERDE ORDERABLES ALYSONDESIREE SWAIN DAY CONVERSION documented in this encounter Visit Diagnoses Not on filedocumented in this encounter
--- OUTSIDE RECORDS SUMMARY | 2023-10-13 10:11 | XMS_ITS | Encounter Summary ---
Author Organization [facility] Address [address] [place] [address] Care Team Providers Care Field Supervisor Seed Production Name Role Phone Armond Terrell MD Primary Care Provider Unava ilable Encounter Details Date Type Department Care Team (Late st Contact Info) Description 06/28/2017 Historical Results Only [facility] [place] [place] Lab - [address] [phone] Armond Terrell MD Social History Tobacco Use [...] Procedure Name Priority Date/Time Associated Diagnosis Comments LITHIUM Routine 06/28/2017 17:56 EDT BASIC METABOLIC PANEL (BMP) Routine 06/28/2017 17:56 EDT documented in this encounter Results * (ABNORMAL) LITHIUM (06/28/2017 17:56 EDT) [place] <0.20(L) mEq/L 06/28/2017 19:25 EDT [facility] Comment: Date and Time for last dose: ??Not Available. Therapeutic Range: 0.6-1.2 mEq/L Toxic: ??>1.5 mEq/L 06/28/2017 17:5 6 EDT 06/28/2017 17:56 EDT Armond Terrell MD CHEMISTRY & BLOOD GA S ORDERABLES Performing Organization Address City/[facility]/ZIP Co de Phone Number [facility] * BASIC METABOLIC PANEL (BMP) (06/28/2017 17:56 EDT) BUN - [facility] [place] [place] 12 10 - 26 mg/dL 06/28/2017 19:04 [facility] CALCIUM - [facility] [place] [place] 10.1 8.5 - 10.5 mg/dL 06/28/2017 19:04 [facility] Chloride 102 96 - 110 mmol/L 06/28/2017 19:04 [facility] CO2 Total 25 22 - 32 mEq/L 06/28/2017 19:04 [facility] CREATININE 0.81 0.52 - 1.04 mg/dL 06/28/2017 19:04 [facility] eGFR >60 06/28/2017 19:04 [facility] Comment: Chronic renal impairment is defined as GFR <60 Multiply result by 1.210 for patients. eGFR calculated using the IDMS-traceable MDRD Study Equation. ??(effective 01/28/2014) Anion Gap 13 0 - 18 06/28/2017 19:04 [facility] GLUCOSE - [facility] [place] [place] 80 70 - 100 mg/dL 06/28/2017 19:04 [facility] Potassium 3.7 3.5 - 5.0 mEq/L 06/28/2017 19:04 [facility] Sodium 140 136 - 145 mEq/L 06/28/2017 19:04 [facility] 06/28/2017 17:5 6 EDT 06/28/2017 17:56 EDT Armond Terrell MD CHEMISTRY & BLOOD GA S ORDERABLES [facility] documented in this encounter Visit Diagnoses Not on filedocumented in this encounter Care Teams Field Supervisor Seed Production Relationship Specialty Start Date End Date Armond Terrell MD PCP - General 12/18/14 12/07/22 documented as of this encounter
--- OUTSIDE RECORDS SUMMARY | 2023-10-13 10:11 | XMS_ITS | Encounter Summary ---
Author Organization [facility] Address [address] [place] [address] Care Team Providers Care Director Of Corporate Responsibility Name Role Phone None, Provider Primary Care Provider Unavailabl e Reason for Visit * Reason Comments Chest Pain Chest pain radiating to back 3 weeks w/ htn, intermittent since then but today had a 9/10 felt like a rubber band in my chest breaking that knocked the breath out of me w/ some SOB Encounter Details Date Type Department Care Team (Late st Contact Info) Description 04/11/2023 17:24 EST - 04/11/2023 20:40 EST Emergency [facility] Emergency Department [address] [place], [place] [phone] Jareth Jolley MD [address] [place] [address] Chest pain, unspecified type (Primary Dx) Discharge Disposition: Home or Self [...] Sign Reading Time Taken Comments Blood Pressure 146/85 04/11/2023 1705 EST Pulse 86 04/11/2023 1705 EST Temperature 36.6 ??C (97.9 ??F) 04/11/2023 1705 EST Respiratory Rate 18 04/11/2023 1705 EST Oxygen Saturation 100% 04/11/2023 1705 EST Inhaled Oxygen Concentration - - Weight 108.7 kg (239 lb 11.2 oz) 04/11/2023 1705 EST Height - - Body Mass Index - - documented in this encounter Discharge Instructions * Discharge Instructions* Jareth Jolley MD - 04/11/2023 20:22 EST You were seen in the emergency department for chest pain. Your test results did not show any signs of heart attack, pulmonary embolism or any other concerning findings. Try to take your blood pressure at home at least a few times per week. It is best to take it shortly after waking up in the morning before you have been active for the day. Make sure you have been sitting calmly for 10 to 15 minutes with your legs uncrossed before checking your pressure. Care management will contact you to try to help with a PCP appointment. Return to the ED for any worsening symptoms. documented in this encounter Medications at Time [...] Means Destination Comment s Home or Self Senior Living documented in this encounter ED Notes * Jareth Jolley MD - 04/11/2023 5059 EST Emergency Department Visit Medical Decision Making 32-year-old female presents to the emergency department with chest pain. She is well-appearing withnormal vitals except for hypertension. EKG without ischemic changes and troponin negative after several hours of symptoms we think ACS is unlikely. Considered PE but D-dimer negative so this is unlikely. Chest x-ray obtained without evidence of pneumonia or pneumothorax. Her symptoms or not suggestive of aortic dissection. With regard to her blood pressure, I encouraged her to monitor at home andif it remains elevated to discuss with her PCP. She has had trouble finding a PCP, currently has anappointment in June. I sent a message to care management to try to help facilitate closer follow-up. Discharged home. EKG (independent interpretation): Normal sinus rhythm with rate of 84, normal axis, normal intervals, no acute ischemic changes Imaging (independent interpretation) of the X-ray: Normal chest x-ray Medical Decision Making Problems Addressed: Chest pain, unspecified type: complicated acute illness or injury Amount and/or Complexity of Data Reviewed Independent Historian: spouse Labs: ordered. Radiology: ordered and independent interpretation performed. ECG/medicine tests: independent interpretation performed. Final diagnoses: Chest pain, unspecified type Disposition: Discharged Chief complaint: Chest pain, hypertension HPI Edith Echols is a 32 y.o. female who presents to the ED for chest pain and hypertension. Over the past few weeks has had intermittent dull pain in her left upper chest. Today was working with the patient when she suddenly had more severe pain in the left chest that felt like a rubber band snapping. Pain took her breath away. Patient has no personal history of cardiac disease. Has never been diagnosed with hypertension but has noticed that lately when she takes her blood pressure it hasbeen elevated. No history of diabetes or smoking. She has never had a blood clot. Does not take anyestrogen-containing medications. History was provided by: Patient, spouse Patient's pertinent PMH, FH, SH were reviewed and edited as necessary. Nursing notes reviewed. A medical screening exam was performed. Physical Exam BP (!) 146/85 (BP Cuff Location: Left arm, BP Patient Position: Sitting) Pulse 86 Temp 36.6 ??C(97.9 ??F) (Oral) Resp 18 Wt (!) 108.7 kg (239 lb 11.2 oz) SpO2 100% Physical Exam Vitals and nursing note reviewed. Constitutional: General: She is not in acute distress. Appearance: Normal appearance. HENT: Head: Normocephalic and atraumatic. Right Ear: External ear normal. Left Ear: External ear normal. Nose: Nose normal. Mouth/Throat: Mouth: Mucous membranes are moist. Eyes: Extraocular Movements: Extraocular movements intact. Pupils: Pupils are equal, round, and reactive to light. Cardiovascular: Rate and Rhythm: Normal rate and regular rhythm. Heart sounds: Normal heart sounds. Pulmonary: Effort: Pulmonary effort is normal. Breath sounds: Normal breath sounds. Abdominal: Palpations: Abdomen is soft. There is no mass. Tenderness: There is no abdominal tenderness. Musculoskeletal: General: No swelling or deformity. Normal [...] Name Priority Date/Time Associated Diagnosis Comments ECG REPORT - SCANNED 04/11/2023 21:52 EST XR CHEST PORTABLE 1 VIEW STAT 04/11/2023 18:40 EST HOLD BLUE TOP STAT 04/11/2023 17:36 EST TROPONIN I STAT 04/11/2023 17:36 EST D-DIMER STAT Add-on 04/11/2023 17:36 EST COMPLETE BLOOD COUNT AND DIFFERENTIAL STAT 04/11/2023 17:36 EST MAGNESIUM STAT 04/11/2023 17:36 EST BASIC METABOLIC PANEL (BMP) STAT 04/11/2023 17:36 EST EKG 12-LEAD STAT 04/11/2023 17:33 EST documented in this encounter Results * ECG REPORT - SCANNED (04/11/2023 21:52 EST) 04/11/2023 21:5 2 EST Scan 2 Residential Life Director PROCEDURE/MINOR JESSICA GICAL ORDERABLES * XR CHEST PORTABLE 1 VIEW (04/11/2023 18:40 EST) Anatomical Region Laterality Modality Computed Radiogr aphy 04/11/2023 18:3 6 EST Impressions 04/11/2023 19:20 EST No acute findings. THIS DOCUMENT HAS BEEN ELECTRONICALLY SIGNED BY EVIE FRANCIS MD FOR ANY QUESTIONS OR CONCERNS REGARDING THIS REPORT PLEASE CALL [facility] AT [phone] Narrative 04/11/2023 19:20 EST PROCEDURE INFORMATION: Exam: XR Chest Exam date and time: 04/11/2023 6:36 PM Age: 32 years old Clinical indication: Pain; Left-sided; Additional info: Left sided chest pain TECHNIQUE: Imaging protocol: Radiologic exam of the chest. Views: 1 view. COMPARISON: CR EXP CARE CHEST PA LAT 04/11/2017 11:22 AM FINDINGS: Lungs: Unremarkable. No consolidation. Pleural spaces: Unremarkable. No pleural effusion. No pneumothorax. Heart/Mediastinum: Unremarkable. No cardiomegaly. Bones/joints: Unremarkable. Procedure Note Evie Francis MD - 04/11/2023 PROCEDURE INFORMATION: Exam: XR Chest Exam date and time: 04/11/2023 6:36 PM Age: 32 years old Clinical indication: Pain; Left-sided; Additional info: Left sided chest pain TECHNIQUE: Imaging protocol: Radiologic exam of the chest. Views: 1 view. COMPARISON: CR EXP CARE CHEST PA LAT 04/11/2017 11:22 AM FINDINGS: Lungs: Unremarkable. No consolidation. Pleural spaces: Unremarkable. No pleural effusion. No pneumothorax. Heart/Mediastinum: Unremarkable. No cardiomegaly. Bones/joints: Unremarkable. IMPRESSION No acute findings. THIS DOCUMENT HAS BEEN ELECTRONICALLY SIGNED BY EVIE FRANCIS MD FOR ANY QUESTIONS OR CONCERNS REGARDING THIS REPORT PLEASE CALL [facility] [phone] Jareth Jolley MD IMG DIAGNOSTIC IMAGI NG ORDERABLES * D-DIMER (04/11/2023 17:36 EST) D-Dimer <150 <=230 ng/mL DDU 04/11/2023 18:22 EST [facility] Blood VENOUS BLOOD / Unknown Venipuncture / Unknown 04/11/2023 17:36 EST 04/11/2023 17:50 EST Narrative [facility] - 04/11/2023 18:22 EST Cutoff value for the exclusion of DVT and PE: 230 ng/mL D-dimer units. Any use of the age-adjusted cutoff value is a post-analytic modification of this FDA-approved test and is considered off-label use of the test result. Jareth Jolley MD HEMATOLOGY & PF4 ORD ERABLES [facility] [address] [place] [address] * HOLD BLUE TOP (04/11/2023 17:36 EST) Hold Hold 04/11/2023 19:01 EST [facility] Blood VENOUS BLOOD / Unknown Venipuncture / Unknown 04/11/2023 17:36 EST 04/11/2023 17:50 EST Jareth Jolley MD LAB INFO SERVICE AND SUPPORT & PHONE RESULT Performing Organization Address [facility] Co de Phone Number [facility] [address] [place] [address] * MAGNESIUM (04/11/2023 17:36 EST) Pathologist [facility] Magnesium 1.9 1.7 - 2.8 mg/dL 04/11/2023 18:09 EST [facility] Blood VENOUS BLOOD / Unknown Venipuncture / Unknown 04/11/2023 17:36 EST 04/11/2023 17:50 EST Jareth Jolley MD CHEMISTRY & BLOOD GA S ORDERABLES Performing Organization Address [facility] [address] [place] [address] * TROPONIN I (04/11/2023 17:36 EST) [facility] Troponin I (ng/mL) <0.034 <0.034 ng/mL 04/11/2023 18:22 EST [facility] Blood VENOUS BLOOD / Unknown Venipuncture / Unknown 04/11/2023 17:36 EST 04/11/2023 17:50 EST Narrative [facility] - 04/11/2023 18:22 EST The results of this assay can be falsely lowered due to the consumption of Biotin. Jareth Jolley MD CHEMISTRY & BLOOD GA S ORDERABLES Performing Organization Address [facility] Co de Phone Number [facility] [address] [place] [address] * BASIC METABOLIC PANEL (BMP) (04/11/2023 17:36 EST) Pathologist [facility] Department Sodium 142 136 - 145 mmol/L 04/11/2023 18:09 EST [facility] Potassium 3.8 3.5 - 5.0 mmol/L 04/11/2023 18:09 EST [facility] Chloride 104 96 - 110 mmol/L 04/11/2023 18:09 [facility] CO2 Total 24 22 - 32 mmol/L 04/11/2023 18:09 [facility] Anion Gap 14 5 - 14 mmol/L 04/11/2023 18:09 [facility] Glucose 87 70 - 99 mg/dl 04/11/2023 18:09 [facility] Calcium 10.0 8.5 - 10.5 mg/dL 04/11/2023 18:09 [facility] BUN 12 10 - 26 mg/dL 04/11/2023 18:09 [facility] Creatinine 0.70 0.52 - 1.04 mg/dL 04/11/2023 18:09 [facility] eGFR 118 >60 mL/min/1.73 m2 04/11/2023 18:09 [facility] Blood VENOUS BLOOD / Unknown Venipuncture / Unknown 04/11/2023 17:36 EST 04/11/2023 17:50 EST Jareth Jolley MD CHEMISTRY & BLOOD GA S ORDERABLES Performing Organization Address City/State/[facility] Co de Phone Number [facility] [address] [place] [address] * (ABNORMAL) COMPLETE BLOOD COUNT AND DIFFERENTIAL (04/11/2023 17:36 EST) WBC 13.19(H) 4.00 - 12.40 K/cmm 04/11/2023 17:55 [facility] RBC 4.86 3.86 - 5.04 M/cmm 04/11/2023 17:55 [facility] Hemoglobin 13.6 11.6 - 15.2 g/dL 04/11/2023 17:55 [facility] HCT 41.6 34.9 - 44.4 % 04/11/2023 17:55 [facility] MCV 86 81 - 98 fL 04/11/2023 17:55 [facility] MCH 28.0 26.7 - 33.3 pg 04/11/2023 17:55 [facility] MCHC 32.7 32.1 - 35.9 g/dL 04/11/2023 17:55 [facility] RDW-CV 13.9 <14.7 % 04/11/2023 17:55 [facility] RDW-SD 43.5 <50.4 fl 04/11/2023 17:55 [facility] PLT 378(H) 141 - 377 K/cmm 04/11/2023 17:55 [facility] MPV 9.9 9.5 - 12.7 fL 04/11/2023 17:55 [facility] % Neutrophils 65.1 % 04/11/2023 17:55 [facility] % Lymphocytes 27.4 % 04/11/2023 17:55 [facility] % Monocytes 5.8 % 04/11/2023 17:55 [facility] % Eosinophils 0.8 % 04/11/2023 17:55 [facility] % Basophils 0.5 % 04/11/2023 17:55 [facility] % Immature Grans 0.4 % 04/11/19 24 17:55 [facility] Absolute Neutrophils 8.59 2.20 - 8.85 K/cmm 04/11/2023 17:55 [facility] Absolute Lymphocytes 3.61(H) 1.09 - 3.30 K/cmm 04/11/2023 17:55 [facility] Absolute Monocytes 0.77 0.10 - 0.80 K/cmm 04/11/2023 17:55 [facility] Absolute Eosinophils 0.10 0.03 - 0.61 K/cmm 04/11/2023 17:55 [facility] ABS Basophils 0.07 0.01 - 0.11 K/cmm 04/11/2023 17:55 [facility] Absolute Immature Grans 0.05 0.00 - 0.06 K/cmm 04/11/2023 17:55 [facility] Type of Differential: Auto 04/11/2023 17:55 [facility] Blood VENOUS BLOOD / Unknown Venipuncture / Unknown 04/11/2023 17:36 EST 04/11/2023 17:50 EST Jareth Jolley MD PACKAGES & DNA PROBE ORDERABLES [facility] [address] [place] [address] * EKG 12-LEAD (04/11/2023 17:33 EST) 04/11/2023 17:3 3 EST Narrative [facility] - 04/11/2023 21:45 EST ? [facility] ? Test Date: ?2023-04-11 Pat Name: ? EDITH ECHOLS ?Department: ? Room: ? Gender: ? Female ? Kieselguhr Regenerator Operator: ?? LUCHO PETERS: ?1990 ? Requested By: JEWELL Oquendo Order Number: [id number] ? Edith LEMUS: ?? CELESTINO ROJAS MD ? Measurements Intervals ?[place] ? Rate: ? 84 ? P: ?42 NC: ? 156 ?QRS: ?34 QRSD: ? 94 ? T: ?29 QT: ? 374 ? QTc: ?441 ? Interpretive Statements Normal sinus rhythm Compared to ECG 01/13/2015 19:20:26 Sinus tachycardia no longer present I reviewed the tracing and have either agreed or edited the findings in this report. Electronically Signed On 04-11-2023 21:45:48 EST by CELESTINO ROJAS MD. Procedure Note Celestino Rojas MD - 04/11/2023 [facility] Test Date: 2023-04-11 Pat Name: EDITH ECHOLS Department: Room: Gender: Female Kieselguhr Regenerator Operator: LUCHO : 1990 Requested By: JEWELL Oquendo Order Number: [id number] Edith MD: CELESTINO ROJAS MD Measurements Intervals [place] Rate: 84 P: 42 NC: 156 QRS: 34 QRSD: 94 T: 29 QT: 374 QTc: 441 Interpretive Statements Normal sinus rhythm Compared to ECG 01/13/2015 19:20:26 Sinus tachycardia no longer present I reviewed the tracing and have either agreed or edited the findings inthis report. Electronically Signed On 04-11-2023 21:45:48 EST by RUBEN LEMUS. Jareth Jolley MD CARDIAC ECG ORDERABL ES [facility] documented in this encounter Visit Diagnoses Diagnosis Chest pain, unspecified type- Primary documented in this encounter Care Teams Director Of Corporate Responsibility Relationship Specialty Start Date End Date None, Provider PCP - General 04/11/23 08/04/23 documented as of this encounter
--- OUTSIDE RECORDS SUMMARY | 2023-10-13 10:11 | XMS_ITS | Encounter Summary ---
Author Organization [facility] Address [address] [place] [address] Care Team Providers Care Pc Installation Engineer Name Role Phone Saurabh Bishop MD Primary Care Provider [phone] Reason for Visit * Cardiology (Routine/Next Available) - Authorization Not Required Specialty Diagnoses / Procedures Referred By Jose Daniel bullard Referred To Contact Diagnoses Syncope, unspecified syncope type Procedures 30 DAY CIGAR PACKER Deangelo Ortiz MD [address] [place] [address] [address] [place] [address] [facility] Referral ID Status Reason Start Date Expiration Date Visits Requested Visits Authorized [id number] Authorization Not Required 09/19/2023 1 1 Encounter Details Date Type Department Care Team (Latest Contact Info) Description 09/22/2023 13:30 EDT Ancillary Procedure [facility] [address] [place] [address] Syncope, unspecified syncope type Social History Tobacco Use Types Packs/Day Years [...] No 08/05/2023 documented as of this encounter Plan of Treatment Pending Results Name Type Priority Associated Diagnoses Date /Time 30 DAY CIGAR PACKER Cardiac Services Routine Syncope, unspecified syncope type 09/22/2023 13:35 EDT documented as of this encounter Visit Diagnoses Diagnosis Syncope, unspecified syncope type documented in this encounter Care Teams Pc Installation Engineer Relationship Specialty Start Date End Date Saurabh Bishop MD [address] [facility] [address] [place] [id number] PCP - General Emergency Medicine 08/05/23 documented as of this encounter
--- OUTSIDE RECORDS SUMMARY | 2023-10-13 10:11 | XMS_ITS | Encounter Summary ---
Author Organization [facility] Address [address] [place] [address] Care Team Providers Care Mail Sorter Name Role Phone Armond Terrell MD Primary Care Provider Unava ilable Encounter Details Date Type Department Care Team (Latest Contact Info) Description 01/15/2016 7:47 EDT - 01/15/2016 23:59 EDT Hospital Encounter [address] [address] Unknown, Provider, Discharge Disposition: Home or Self Care Social History Tobacco Use Types Packs/Day Years Used Date Smoking Tobacco: Never Assessed Sex and Gender Information Value Date Recorded Sex Assigned at Not on file Gender Identity Female 11/26/2022 16:52 EDT Sexual Orientation Not on file documented as of this encounter Discharge Disposition Disposition Code Departure Means Destination Home or Self Detention documented in this encounter Plan of Treatment Not on file documented as of this encounter Visit Diagnoses Not on filedocumented in this encounter Care Teams Mail Sorter Relationship Specialty Start Date End Date Armond Terrell MD PCP - General 12/18/14 12/07/22 documented as of this encounter
--- OUTSIDE RECORDS SUMMARY | 2023-10-13 10:11 | XMS_ITS | Encounter Summary ---
Author Organization [facility] Address [address] [place] [address] Care Team Providers Care Egg Pasteurizer Name Role Phone Armond Terrell MD Primary Care Provider Unava ilable Encounter Details Date Type Department Care Team (Late st Contact Info) Description 04/28/2016 Historical Results Only [facility] - [address] [id number] Unknown, Provider, Social History Tobacco Use Types Packs/Day Years Used Date Smoking Tobacco: Never Assessed Sex and Gender Information Value Date Recorded Sex Assigned at Not on file Gender Identity Female 11/26/2022 16:52 EDT Sexual Orientation Not on file documented as of this encounter Plan of Treatment Not on file documented as of this encounter Procedures Procedure Name Priority Date/Time Associated Diagnosis Comments QUANTIFERON TB GOLD PLUS Routine 04/28/2016 13:49 EST HEPATITIS B SURFACE ANTIBODY Routine 04/28/2016 13:49 EST documented in this encounter Results * HEPATITIS B SURFACE ANTIBODY (04/28/2016 13:49 EST) HEPATITIS B ANTIBODY (SURF) - [facility] Positive 04/28/2016 15:33 EST [facility] Comment:Expected Values: Neg ative. 04/28/2016 13:4 9 EST 04/28/2016 13:49 EST Narrative [facility] - 04/28/2016 15:33 EST Does PT Have a Latex Allergy? NO Provider Unknown CHEMISTRY & BLOOD GA S ORDERABLES Performing Organization Address [facility] Co de Phone Number [facility] * QUANTIFERON TB GOLD PLUS (04/28/2016 13:49 EST) Quantiferon Interpretation Negative NEGAT 04/30/2016 20:13 [facility] Comment: Reference Range: Negative Resuls were obtained with the [employer] QuantiFERON-TB Gold KATLIN. Test Performed by: [place] [address] Finishing Powder Press Operator: Lit Enriquez MD , Ph D M.TUBERCULOSIS ANTIGEN - [facility] 0.00 () IU/mL 04/30/2016 20:13 [facility] Comment: This is a qualitative test. ??The TB antigen IU/mL value is required for documentation on certain government reporting forms (e.g., Form I-693), but the magnitude of this value cannot be correlated to stage or degree of infection, level of immune responsiveness, or likelihood for progression to active disease. Diagnosing or excluding tuberculosis disease, and assessing the probability of LTBI, requires a combination of epidemiological, historical, medical, and diagnostic findings that should be taken into account when interpreting QuantiFERON-TB results. 04/28/2016 13:4 9 EST 04/28/2016 13:49 EST Narrative [facility] - 04/30/2016 20:13 EST Does PT Have a Latex Allergy? NO Provider Unknown CHEMISTRY & BLOOD GA S ORDERABLES Performing Organization Address City/[facility]/ZIP Co de Phone Number [facility] documented in this encounter Visit Diagnoses Not on filedocumented in this encounter Care Teams Egg Pasteurizer Relationship Specialty Start Date End Date Armond Terrell MD PCP - General 12/18/14 12/07/22 documented as of this encounter
--- OUTSIDE RECORDS SUMMARY | 2023-10-13 10:11 | XMS_ITS | Encounter Summary ---
Author Organization [facility] Address [address] [place] [address] Care Team Providers Care Metal Shaping Machine Operator Name Role Phone Armond Terrell MD Primary Care Provider Unava ilable Reason for Visit * Reason Comments Other Hx of silent UTI. Encounter Details Date Type Department Care Team (Late st Contact Info) Description 11/26/2022 17:00 EDT Walk-[facility] [address] [place] [phone] Lucille Molina, PA-C [address] [facility] [address] [place], [place] [id number] Malaise (Primary Dx) Social History Tobacco Use Types Packs/Day Years [...] Sign Reading Time Taken Comments Blood Pressure 120/80 11/26/2022 1719 EDT Pulse 87 11/26/2022 1719 EDT Temperature 36.6 ??C (97.9 ??F) 11/26/2022 1719 EDT Respiratory Rate 20 11/26/2022 1719 EDT Oxygen Saturation 98% 11/26/2022 1719 EDT Inhaled Oxygen Concentration - - Weight - - Height - - Body Mass Index - - documented in this encounter Patient Instructions * Patient Instructions* Lucille Molina PA-C - 11/26/2022 17:00 EDT Ericka - You were seen today for concerns of a possible urinary tract infection. Your urine sample provided test only shows a small amount of red blood cells. Your underlying fibromyalgia I understand makes it difficult for you to assess your symptoms. Givenour test here is not overly indicative of infection lets go ahead and have you take a printed prescription at home for the weekend. I will send your urine for culture and if your symptoms worsen please start the antibiotic. If it does grow out bacteria then I will check in with you to be sure that it is the correct antibiotic and that we did indeed start it. Please continue to drink good amounts of water to stay well-hydrated. You can always come see us again or the ER if anything is dramatically worsening despite this plan of care. documented in this encounter Ordered Prescriptions Prescription Sig Dispensed Refills Start Date End Da te nitrofurantoin, macrocrystal-monohydrate, (MACROBID) 100 mg capsule Take 1 Capsule by mouth 2 times daily. 10 Capsule 11/26/2022 documented in this encounter Progress Notes * Steph Mirza RN - 11/26/2022 1700 EDT CC/HPI: Pt reports silent UTIs. She just feels terrible. Temps also run high. Dip test at home was positive. Covid Screening: In the last 72 hours, has the patient had: New or unusual cough, shortness of breath, new nasal congestion, sore throat, fever, chills, body aches, or new loss of taste or smell without a reasonable alternative diagnosis*? (If yes, assign to [facility])- NO In the past 10 days, has the patient had a positive Covid test OR a confirmed close Covid exposure (<6ft for > 15mins in 24hr period)? (if yes, assign to [facility], regardless of vaccination status)- *may be determined by RN or in discussion with available provider (FRONT OFFICE COORDINATOR's and CCA's can defer to Charge Nurse to complete triage when appropriate) PCP: Armond Terrell * Lucille Molina PA-C - 11/26/2022 1700 EDT [facility] Chief Complaint(s): Chief Complaint Patient presents with ??? Other Hx of silent UTI. Assessment & Plan: Ericka was seen today for other. Diagnoses and all orders for this visit: Malaise - POCT URINE DIPSTICK, VISUAL READ - BACTERIAL CULTURE, URINE Other orders - nitrofurantoin, macrocrystal-monohydrate, (MACROBID) 100 mg capsule; Take 1 Capsule by mouth 2 times daily. Ericka Perdomo is a pleasant 32 y.o. female who presents with chief complaint of concern for urinary tract infection. Pt has normal vital signs, negative UA. It is a Tuesday afternoon. She endorses that her fibromyalgia makes it difficult to recognize symptoms of infection. Will send urine for culture and start empirically on short course of abx if symptoms worsen. An appropriate medical screening examination was performed. The patient was assessed prior to discharge and deemed stable for discharge home. I printed material and reviewed home management and follow up in detail with patient, see patient instructions below. Patient is advised in use of [employer]og[employer] to access any lab results or other pertinentvisit information. All questions are answered. Patient is advised to follow up for urgent reassessment for any new/worsening signs and symptoms here at [facility] or with the ER. Otherwise, follow up with PCP or [facility] is advised for symptoms that persist past current course of treatment or expected resolution as discussed. Patient verbalizes understanding and agreement with this plan of care. HPI: Pt here cc feeling off/chilled, more fatigued, some non specific lower abdominal pain. Concerned she may have a bladder infection, has presented this way in the past. Pt has fibromyalgia, is very difficult for her to julio cesar when ill due to all of her baseline symptoms. Denies painful urination, no frequency. No fevers. ROS: ROS See HPI for details Objective: Vitals and nursing notes reviewed Examination: BP 120/80 (BP Cuff Location: Left arm, BP Patient Position: Sitting, BP Cuff Sizes: Adult, long) Pulse 87 Temp 36.6 ??C (97.9 ??F) (Oral) Resp 20 SpO2 98% Physical Exam Constitutional: General: She is not in acute distress. Appearance: Normal appearance. Cardiovascular: Heart sounds: Normal heart sounds. Pulmonary: Breath sounds: Normal breath sounds. Abdominal: General: Abdomen is flat. There is no distension. Palpations: Abdomen is soft. There is no mass. Tenderness: There is no abdominal tenderness. There is no right CVA tenderness or left CVA tenderness. Skin: General: Skin is warm and dry. Findings: No rash. Neurological: Mental Status: She is alert and oriented to person, place, and time. Results for orders placed or performed in visit on 11/26/22 BACTERIAL CULTURE, URINE Specimen: Urine, Clean Catch Result Value Ref Range Organism ID [id number] to 100,000 CFU/ml POCT URINE DIPSTICK, VISUAL READ Result Value Ref Range Color, UA Light Yellow Clarity, UA Clear Glucose, UA Negative . mg/dL Bilirubin, UA Negative Negative Ketones, UA Negative . mg/dL Spec Grav, UA 1.025 1.005 - 1.030 Blood, UA Trace (A) Negative pH, UA 5.5 4.6 - 8.0 Protein, UA Negative . mg/dL Urobilinogen, UA 0.2 0.2 - 1.0 E.U./dL Nitrite, UA Negative . Leuk Esterase Negative Negative Comment Data reviewed with patient (past results): PMHx/pertinent labs/DI and pertinent recent OV's This note may be in part documented using [employer] dictation software. Please forgive any errors, omissions or typos that may result from use of dictation. documented in this encounter Plan of Treatment Not on file documented as of this encounter Procedures Procedure Name Priority Date/Time Associated Diagnosis Comments BACTERIAL CULTURE, URINE Routine 11/26/2022 17:47 EDT Malaise POCT URINE DIPSTICK, VISUAL READ Routine 11/26/2022 Malaise documented in this encounter Results * BACTERIAL CULTURE, URINE (11/26/2022 17:47 EDT) Organism ID [id number] to 100,000 CFU/ml VITEK SUSCEPTIBILITY 11/28/2022 10:56 EDT [facility] Comment: Usual urogenital everton. Urine URINE SPECIMEN OBTAINED BY CLEAN CATCH PROCEDURE / Unknown Urine Collect / Unknown 11/26/2022 17:47 EDT 11/26/2022 17:47 EDT Lucille Molina PA-C MICROBIOLOGY - G ENERAL ORDERABLES [facility] [address] [place] [address] * (ABNORMAL) POCT URINE DIPSTICK, VISUAL READ (11/26/2022) Color, UA Light Yellow [facility] P OINT OF CARE Clarity, UA Clear [facility] PO INT OF CARE Glucose, UA Negative . mg/dL [facility] PO INT OF CARE Bilirubin, UA Negative Negative [facility] POINT OF CARE Ketones, UA Negative . mg/dL [facility] PO INT OF CARE Spec Grav, UA 1.025 1.005 - 1.030 [facility] POINT OF CARE Blood, UA Trace(A) Negative [facility] POIN T OF CARE pH, UA 5.5 4.6 - 8.0 [facility] POIN T OF CARE Protein, UA Negative . mg/dL [facility] PO INT OF CARE Urobilinogen, UA 0.2 0.2 - 1.0 E.U./dL [facility] POINT OF CARE Nitrite, UA Negative . [facility] PO INT OF CARE Leuk Esterase Negative Negative [facility] POINT OF CARE Comment [facility] POIN T OF CARE Urine URINE SPECIMEN OBTAINED BY CLEAN CATCH PROCEDURE / Unknown 11/26/2022 Lucille Molina PA-C POINT OF CARE TE ST ORDERABLES [facility] POINT OF CARE documented in this encounter Visit Diagnoses Diagnosis Malaise- Primary Other malaise and fatigue documented in this encounter Discontinued Medications Medication Sig Discontinue Reason Start Date End Da te traZODone (DESYREL) 50 mg tablet every 24 hours. Alternate therapy 11/26/2022 documented as of this encounter Historical Medications * This list may reflect changes made after this encounter. Medication Sig Dispensed Refills Start Date End Date b complex vitamins (VITAMINS B COMPLEX) capsule Take 1 Capsule by mouth daily. Magnesium Gluconate 30 mg (550 mg) tablet Take 30 mg by mouth. albuterol 90 mcg/actuation inhaler ProAir HFA 90 mcg/actuation aerosol inhaler brexpiprazole (REXULTI) 3 mg tablet Take 1 Tablet by mouth daily. brexpiprazole (REXULTI) 1 mg tablet Take 1.5 tablets every day by oral route at bedtime. REXULTI 3 mg tablet Take 1 Tablet by mouth daily. 10/04/2022 buPROPion (WELLBUTRIN SR) 100 mg SR tablet Take 1 Tablet by mouth 2 times daily. buPROPion (WELLBUTRIN SR) 100 mg SR tablet Take 1 Tablet by mouth 2 times daily. 10/01/2022 buPROPion (WELLBUTRIN) 100 mg tablet Take 1 tablet every day by oral route. buPROPion (WELLBUTRIN SR) 100 mg SR tablet Take 1 Tablet by mouth daily. cholecalciferol, Vitamin D3, 125 mcg (5000 unit) capsule Take 1 Capsule by mouth daily. diazePAM (VALIUM) 5 mg tablet TAKE 1 TABLET 1/2 HOUR PRIOR TO PROCEDURE AND 1 TABLET DURING THE PROCEDURE IF NEEDED 08/13/2022 famotidine (PEPCID) 20 mg tablet Take 1 tablet twice a day by oral route. magnesium oxide (MAG-OX) 250 mg magnesium tablet Take 1 Tablet by mouth daily. risperiDONE (RISPERDAL) 0.25 mg tablet Take 1 Tablet by mouth 2 times daily. traZODone (DESYREL) 100 mg tablet Take 1 tablet as needed by oral route at bedtime. traZODone (DESYREL) 50 mg tablet every 24 hours. 11/26/2022 added in this encounter Care Teams Metal Shaping Machine Operator Relationship Specialty Start Date End Date Armond Terrell MD PCP - General 12/18/14 12/07/22 documented as of this encounter
--- OUTSIDE RECORDS SUMMARY | 2023-10-13 10:11 | XMS_ITS | Encounter Summary ---
Author Organization [facility] Address [address] [place] [address] Care Team Providers Care Deli/Bakery Associate Name Role Phone None, Provider Primary Care Provider Unavailabl e Encounter Details Date Type Department Care Team (Latest Contact Info) Description 2023 Travel Social History Tobacco Use Types Packs/Day [...] on filedocumented in this encounter Care Teams Deli/Bakery Associate Relationship Specialty Start Date End Date None, Provider PCP - General 04/11/23 08/04/23 documented as of this encounter
--- OUTSIDE RECORDS SUMMARY | 2023-10-13 10:11 | XMS_ITS | Encounter Summary ---
Author Organization [facility] Address [address] [place] [address] Care Team Providers Care Novelty Chain Maker Name Role Phone Armond Terrell MD Primary Care Provider Unava ilable Encounter Details Date Type Department Care Team (Late st Contact Info) Description 09/05/2017 Historical Results Only [facility] - Main [address] [phone] Armond Terrell MD Social History Tobacco Use [...] Procedure Name Priority Date/Time Associated Diagnosis Comments VIT D, 25-HYDROXY - [facility] Routine 018 16:35 EDT RHEUMATOID SCREEN/TITRE Routine 09/06/19 18 16:35 EDT COMPLETE BLOOD COUNT WITH DIFFERENTIAL (AUTO) Routine 09/05/2017 16:35 EDT CELIAC DISEASE COMPREHENSIVE CASCADE Routine 09/05/2017 16:35 EDT LYME AB Routine 09/05/2017 16:35 EDT ZZLYME IMMUNOBLOT CONFIRMATION Routine 09/05/2017 16:35 EDT TISSUE TRANSGLUTAMINASE ANTIBODY, IGA Routine 09/05/2017 16:35 EDT ANTI NUCLEAR AB (VIELKA), IFA Routine 09/05/2017 16:35 EDT FERRITIN Routine 09/05/2017 16:35 EDT VITAMIN B12 Routine 09/05/2017 16:35 EDT documented in this encounter Results * VIT D, 25-HYDROXY - [facility] (09/05/2017 16:35 EDT) VIT D, 25 HYDROXY - [facility] 58.0 30 - 100 ng/ml 09/05/2017 20:09 EDT [facility] Comment: ? 25-Hydroxy D Total (D2+D3) ?Expected Values Deficient: ?<20 ng/ml Insufficient: ? 20- <30 ng/ml Sufficient: ? 30-100 ng/ml Potential intoxication: >100 ng/ml 09/05/2017 16:3 5 EDT 09/05/2017 18:52 EDT Armond Terrell MD CHEMISTRY & BLOOD GA S ORDERABLES Performing Organization Address [facility]/ZIP Co de Phone Number [facility] * VITAMIN B12 (09/05/2017 16:35 EDT) VITAMIN B12 - [facility] 753 239 - 931 pg/mL 09/05/2017 20:09 EDT [facility] 09/05/2017 16:3 5 EDT 09/05/2017 18:52 EDT Armond Terrell MD CHEMISTRY & BLOOD GA S ORDERABLES Performing Organization Address [facility]/ZIP Co de Phone Number [facility] * FERRITIN (09/05/2017 16:35 EDT) Pathologist [facility] FERRITIN - [facility] 27 6.2 - 137.0 ng/mL 09/05/2017 19:56 EDT [facility] 09/05/2017 16:3 5 EDT 09/05/2017 18:52 EDT Armond Terrell MD CHEMISTRY & BLOOD GA S ORDERABLES [facility] * ANTI NUCLEAR ANTIBODY (09/05/2017 16:35 EDT) [facility] Antinuclear Ab, S <1:80 <1:80 09/06/2017 12:10 EDT [facility] 09/05/2017 16:3 5 EDT 09/05/2017 18:52 EDT Armond Terrell MD IMMUNOLOGY AND SEROL OGY ORDERABLES Performing Organization Address City/[facility]/ZIP Co de Phone Number [facility] * LYME AB (09/05/2017 16:35 EDT) [facility] Lyme Ab IgG NEGATIVE 09/06/2017 11:04 EDT [facility] Lyme Ab EQUIVOCAL 09/06/2017 11:04 EDT [facility] Comment:Reflex to Western Bl ot has been ordered. 09/05/2017 16:3 5 EDT 09/05/2017 18:52 EDT Armond Terrell MD IMMUNOLOGY AND SEROL OGY ORDERABLES [facility] * COMPLETE BLOOD COUNT WITH DIFFERENTIAL (AUTO) (09/05/2017 16:35 EDT) [facility] ABSOLUTE NEUTROPHIL COUN [facility] 5.03 1.7 - 7.0 10e3/ul 09/05/2017 19:12 EDT [facility] BASO # [facility] 0.02 0.0 - 0.3 10e3/uL 09/05/2017 19:12 [facility] BASO % - [facility] 0 0 - 2 % 09/05/2017 19:12 [facility] EOS # - [facility] 0.10 0.05 - 0.5 10e3/uL 09/05/2017 19:12 [facility] EOS % - [facility] 1 0 - 5 % 09/05/2017 19:12 [facility] GRAN % - [facility] 61 40 - 80 % 09/05/2017 19:12 [facility] HEMATOCRIT - [facility] 40.8 34.0 - 47.0 % 09/05/2017 19:12 [facility] HEMOGLOBIN - [facility] 13.2 11.2 - 15.7 g/dl 09/05/2017 19:12 [facility] IG# - [facility] 0.02 0 - 0.07 10e3/uL 09/05/2017 19:12 [facility] IG% - [facility] 0.2 0 - 0.9 % 09/05/2017 19:12 [facility] LYMPH # - [facility] 2.66 0.9 - 2.9 10e3/uL 09/05/2017 19:12 [facility] LYMPH% - [facility] 32 20 - 40 % 09/05/2017 19:12 [facility] MEAN CORPUSCULAR HGB - [facility] 28.8 26 - 34 pg 09/05/2017 19:12 [facility] MEAN CORPUSCULAR HGB CONC - [facility] 32.4 31 - 36 g/dL 09/05/2017 19:12 [facility] MEAN CELL VOLUME - CV 88.9 77 - 100 fl 09/05/2017 19:12 [facility] MONO # - [facility] 0.48 0.3 - 0.9 10e3/uL 09/05/2017 19:12 [facility] MONO% - [facility] 6 0 - 12 % 09/05/2017 19:12 [facility] PLATELET COUNT 316 150 - 400 10e3/ul 09/05/2017 19:12 [facility] RED BLOOD COUNT - [facility] 4.59 3.8 - 5.2 10e6/ul 09/05/2017 19:12 EDT [facility] RED CELL DISTRI WIDTH - [facility] 13.8 11.8 - 15.6 % 09/05/2017 19:12 EDT [facility] WHITE BLOOD COUNT - [facility] 8.3 3.5 - 10.5 10e3/ul 09/05/2017 19:12 EDT [facility] 09/05/2017 16:3 5 EDT 09/05/2017 18:52 EDT Armond Terrell MD HEMATOLOGY & PF4 ORD ERABLES Performing Organization Address [facility] Co de Phone Number [facility] * TISSUE TRANSGLUTAMINASE AB (09/05/2017 16:35 EDT) Tissue Transglutaminase Antibody IGA <1.2 () U/mL 09/08/2017 8:00 EDT [facility] Comment: REFERENCE VALUE <4.0 (Negative) Test Performed by: [address] [address] 09/05/2017 16:3 5 EDT 09/05/2017 18:52 EDT Armond Terrell MD IMMUNOLOGY AND SEROL OGY ORDERABLES Performing Organization Address [facility]/ZIP Co de Phone Number [facility] * CELIAC DISEASE COMPREHENSIVE CASCADE (09/05/2017 16:35 EDT) IgA 263 61 - 356 mg/dL 09/08/2017 8:00 EDT [facility] Celiac Disease Interpretation SEE BELOW () 09/08/2017 8:00 EDT [facility] Comment: Negative serology. Celiac disease unlikely. However, approximately 10% of patients with celiac disease are seronegative. Also, patients who are already adhering to a gluten-free diet may be seronegative. If celiac disease is highly clinically suspected, consider HLA-DQ typing. Test Performed by: [facility] [address], [place] [address] 09/05/2017 16:3 5 EDT 09/05/2017 18:52 EDT Armond Terrell MD IMMUNOLOGY AND HIGINIO WELSH ORDERABLES [facility] * LYME IMMUNOBLOT CONFIRMATION (09/05/2017 16:35 EDT) Lyme IGG Bands p66, p41 () kDa 09/09/2017 16:38 EDT [facility] Lyme IGM Band(s) p41, p39, p23 () kDa 09/09/2017 16:38 EDT [facility] Lyme IgM ImmunoBlot Positive () 09/09/2017 16:38 EDT [facility] Comment:Reference Range: Neg ative Lyme Immunoblot Interpretation SEE COMMENTS () 09/09/2017 16:38 EDT [facility] Comment: Indicative of early B. burgdorferi infection. A new serum specimen should be analyzed in 14-21 days to demonstrate seroconversion of IgG. ?? IgM Western blot is of diagnostic utility only during the first four weeks after the onset of disease. ?? Specimens collected more than 1 month following the onset of disease with positive IgM and Negative IgG results more likely represent a false-positive. ?? CDC criteria requires >=5 bands for IgG or >=2 bands for IgM for the Western blot to be considered postiive. ??Bands may be detected in patients without Lyme disease. Patterns not meeting CDC criteria should be interpreted with caution. ?? Per CDC guidelines, Western blot testing should only be performed on specimens that are positive or equivocal by Immunoassay. Performing only the Western blot increases the possibility of false positive results. Results should be considered positive only when both the immunoassay and the Western blot are positive. Test Performed by: THE [address] [address] Lyme IGG ImmunoBlot Negative () 09/09/2017 16:38 EDT [facility] Comment: Reference Range: Negative Result will be sent to appropriate Department of Health 09/05/2017 16:3 5 EDT 09/05/2017 18:52 EDT Armond Terrell MD IMMUNOLOGY AND SEROL OGY ORDERABLES [facility] * RHEUMATOID SCREEN/TITRE - [facility] (09/05/2017 16:35 EDT) RHEUMATOID FACTOR SCREEN - [facility] NEG NEG 09/05/2017 19:24 EDT [facility] 09/05/2017 16:3 5 EDT 09/05/2017 18:52 EDT Armond Terrell MD CHEMISTRY & BLOOD GA S ORDERABLES Performing Organization Address City/[facility]/ZIP Co de Phone Number [facility] documented in this encounter Visit Diagnoses Not on filedocumented in this encounter Care Teams Novelty Chain Maker Relationship Specialty Start Date End Date Armond Terrell MD PCP - General 12/18/14 12/07/22 documented as of this encounter
--- OUTSIDE RECORDS SUMMARY | 2023-10-13 10:11 | XMS_ITS | Encounter Summary ---
Author Organization [facility] Address [address] [place] [address] Care Team Providers Care Manager Consumer Name Role Phone Armond Terrell MD Primary Care Provider Unava ilable Encounter Details Date Type Department Care Team (Late st Contact Info) Description 07/06/2016 Historical Results Only [facility] - [address] [phone] Armond Terrell MD Social History Tobacco Use [...] Procedure Name Priority Date/Time Associated Diagnosis Comments BETA-HCG QUANT(WITH DILUT) - [facility] Routine 07/06/2016 15:13 EDT documented in this encounter Results * BETA-HCG QUANT(WITH DILUT) - [facility] (07/06/2016 15:13 EDT) BETA-HCG QUANTITATIVE <2 mIU/mL 07/06/2016 19:02 EDT [facility] Comment: ? --Result Comments/Interpretation of Results-- Apparently healthy non females, males, and post menopausal females: ?< 10 mIU/mL The expected hCG values at a corresponding gestational age are: 0.2-1 week: ?5-50 ? mIU/mL 1-2 weeks: ? 50-500 ? mIU/mL 2-3 weeks: ? 100-5,000 ?mIU/mL 3-4 weeks: ? 500-10,000 ? mIU/mL 4-5 weeks: ? 1,000-50,000 ?? mIU/mL 5-6 weeks: ? 10,000-100,000 mIU/mL 6-8 weeks: ? 15,000-200,000 mIU/mL 2-3 months: ?10,000-100,000 mIU/mL 07/06/2016 15:1 3 EDT 07/06/2016 17:58 EDT Armond Terrell MD CHEMISTRY & BLOOD GA S ORDERABLES [facility] documented in this encounter Visit Diagnoses Not on filedocumented in this encounter Care Teams Manager Consumer Relationship Specialty Start Date End Date Armond Terrell MD PCP - General 12/18/14 12/07/22 documented as of this encounter
--- OUTSIDE RECORDS SUMMARY | 2023-10-13 10:11 | XMS_ITS | Encounter Summary ---
Author Organization [facility] Address [address] [place] [address] Care Team Providers Care Nuclear Physics Professor Name Role Phone Saurabh Bishop MD Primary Care Provider [phone] Encounter Details Date Type Department Care Team (Latest Contact Info) Description 08/05/2023 Travel Social History Tobacco Use Types Packs/Day [...] on filedocumented in this encounter Care Teams Nuclear Physics Professor Relationship Specialty Start Date End Date Saurabh Bishop MD [address] [place] [address] PCP - General Emergency Medicine 08/05/23 documented as of this encounter
--- OUTSIDE RECORDS SUMMARY | 2023-10-13 10:11 | XMS_ITS | Encounter Summary ---
Author Organization [facility] Address [address] [place] [address] Care Team Providers Care Academic Support Specialist Name Role Phone Armond Terrell MD Primary Care Provider Unava ilable Encounter Details Date Type Department Care Team (Late st Contact Info) Description 06/29/2016 Historical Results Only [facility] - [address] [phone] Armond Terrell MD Social History Tobacco Use [...] Procedure Name Priority Date/Time Associated Diagnosis Comments THYROID CASCADE Routine 06/29/2016 8:44 EDT documented in this encounter Results * THYROID CASCADE (06/29/2016 8:44 EDT) TSH 3.17 0.35 - 5.50 uIU/mL 06/29/2016 12:31 EDT [facility] 06/29/2016 8:44 EDT 06/29/2016 11:19 EDT Armond Terrell MD CHEMISTRY & BLOOD GA S ORDERABLES [facility] documented in this encounter Visit Diagnoses Not on filedocumented in this encounter Care Teams Academic Support Specialist Relationship Specialty Start Date End Date Armond Terrell MD PCP - General 12/18/14 12/07/22 documented as of this encounter
--- OUTSIDE RECORDS SUMMARY | 2023-10-13 10:11 | XMS_ITS | Encounter Summary ---
Author Organization [facility] Address [address] [place] [address] Care Team Providers Care Inside Upholsterer Name Role Phone Saurabh Bishop MD Primary Care Provider Reason for Visit * Reason Comments Other MCOT 30 day Encounter Details Date Type Department Care Team (Late st Contact Info) Description 09/22/2023 13:30 EDT Nurse Only [facility] [address] [place] [address] Nurse, [facility] Near syncope (Primary Dx) Social History Tobacco Use Types [...] No 08/05/2023 documented as of this encounter Progress Notes * Augusta Hernandez, RN - 09/22/2023 1330 EDT Pt to office for placement of 30 day Harpreet MCOT heart monitor. Pt aox3 and w/o complaints. Reviewed patient information and instructions with patient who verbalizes understanding. Harpreet MCOT monitor applied to left chest after appropriate skin prep per guidelines from sewing machine bobbin winder. Pt demonstrated proper technique and verbalizes understanding of documenting events via use of the phone that isprovided. Reviewed charging of phone on nightly basis, charging MCOT monitor when notified that it requires charging (usually weekly), as well as changing of monitoring strips when they lose adhesiveness. Reviewed troubleshooting the device as well as how to contact the sewing machine bobbin winder help line with questions/concerns. Pt verbalizes understanding of removal and how to send it back to the sewing machine bobbin winder. documented in this encounter Plan of Treatment Not on file documented as of this encounter Visit Diagnoses Diagnosis Near syncope- Primary Syncope and collapse documented in this encounter Care Teams Inside Upholsterer Relationship Specialty Start Date End Date Saurabh Bishop MD [address] [place] [address] PCP - General Emergency Medicine 08/05/23 documented as of this encounter
--- OUTSIDE RECORDS SUMMARY | 2023-10-13 10:11 | XMS_ITS | Encounter Summary ---
Author Organization [facility] Address [address] [place] [address] Care Team Providers Care Mamma Logist Name Role Phone Armond Terrell MD Primary Care Provider Unava ilable Encounter Details Date Type Department Care Team (Latest Contact Info) Description 04/11/2017 20:55 EST - 04/11/2017 23:59 EST Hospital Encounter [address] [address] Unknown, Provider, Discharge Disposition: Home or Self Care Social History Tobacco Use Types Packs/Day Years Used Date Smoking Tobacco: Never Assessed Sex and Gender Information Value Date Recorded Sex Assigned at Not on file Gender Identity Female 11/26/2022 16:52 EDT Sexual Orientation Not on file documented as of this encounter Discharge Disposition Disposition Code Departure Means Destination Home or Self Custodial documented in this encounter Plan of Treatment Not on file documented as of this encounter Visit Diagnoses Not on filedocumented in this encounter Care Teams Mamma Logist Relationship Specialty Start Date End Date Armond Terrell MD PCP - General 12/18/14 12/07/22 documented as of this encounter
--- OUTSIDE RECORDS SUMMARY | 2023-10-13 10:11 | XMS_ITS | Encounter Summary ---
Author Organization [facility] Address [address] [place] [address] Care Team Providers Care Patient Advocate Name Role Phone Armond Terrell MD Primary Care Provider Unaozzy ilable Encounter Details Date Type Department Care Team (Late st Contact Info) Description 01/20/2017 Historical Results Only [facility] - Main [place] [address] [address], [place] [phone] [place] [address] [place] [address] [place] [id number] Social History Tobacco Use Types Packs/Day Years Used Date Smoking Tobacco: Never Assessed Sex and Gender Information Value Date Recorded Sex Assigned at Not on file Gender Identity Female 11/26/2022 16:52 EDT Sexual Orientation Not on file documented as of this encounter Plan of Treatment Not on file documented as of this encounter Procedures Procedure Name Priority Date/Time Associated Diagnosis Comments PHARYNGITIS SCREEN - [facility] Routine 01/20/2017 8:07 EDT documented in this encounter Results * PHARYNGITIS SCREEN - [facility] (01/20/2017 8:07 EDT) BETA HEMOLYTIC STREP NOT GRP A - [facility] KITCHEN AND COUNTER WORKER 01/22/2017 10:02 EDT [facility] QUANT - [facility] FEW 01/22/2017 10:02 EDT [facility] USUAL ORAL/PHARYNGEA L JULEE - [facility] 01/22/2017 10:02 EDT [facility] QUANT - [facility] 01/22/2017 10:02 EDT [facility] 01/20/2017 8:07 EDT 01/20/2017 11:57 EDT Keena Novak MD CHEMISTRY & BLOOD GA S ORDERABLES [facility] documented in this encounter Visit Diagnoses Not on filedocumented in this encounter Care Teams Patient Advocate Relationship Specialty Start Date End Date Armond Terrell MD PCP - General 12/18/14 12/07/22 documented as of this encounter
--- OUTSIDE RECORDS SUMMARY | 2023-10-13 10:11 | XMS_ITS | Encounter Summary ---
Author Organization [facility] [place] [address] Care Team Providers Care Real Estate Sales Agent Name Role Phone Unavailable Primary Care Provider Unavailabl e Encounter Details Date Type Department Care Team (Late st Contact Info) Description 10/19/2012 Orders Only Radiology and Cardiology Results [address] [place] [phone] Apd Conversion, Results Provider, Social [...] Procedure Name Priority Date/Time Associated Diagnosis Comments RUBELLA ANTIBODY, IGG Routine 10/19/2012 documented in this encounter Results * (ABNORMAL) Rubella Antibody, IgG (10/19/2012) Rubella IgG 36(Externa l Lab) . ALYSON TA CONVERSION 10/19/2012 Results Provider Apd Conversion IMMUN OLOGY ORDERABLES ALYSON TA CONVERSION documented in this encounter Visit Diagnoses Not on filedocumented in this encounter
--- OUTSIDE RECORDS SUMMARY | 2023-10-13 10:11 | XMS_ITS | Encounter Summary ---
Author Organization [facility] Address [address] [place] [address] Care Team Providers Care Acid Bath Mixer Name Role Phone Unknown, Provider Primary Care Provider Reason for Visit * Reason Comments Immunizations Encounter Details Date Type Department Care Team (Late st Contact Info) Description 12/29/2022 10:30 EDT Nurse Only [facility] - [place] [address] [place], [place] [phone] Nurse, [facility] Need for immunization against influenza (Primary Dx) Social History Tobacco Use Types Packs/Day Years Used Date Smoking Tobacco: Never Assessed Interpersonal Safety Answer Date Record ed Physically Hurt Never 10/28/2019 Verbally Threaten Not on file 10/28/2019 Sex and Gender Information Value Date Recorded Sex Assigned at Not on file Gender Identity Female 11/26/2022 16:52 EDT Sexual Orientation Not on file documented as of this encounter Progress Notes * Kerry Shaw, RN - 12/29/2022 1030 EDT Influenza vaccine administered today. Injection tolerated well. documented in this encounter Plan of Treatment Not on file documented as of this encounter Visit Diagnoses Diagnosis Need for immunization against influenza- Primary Need for prophylactic vaccination and inoculation against influenza documented in this encounter Orders Immunization/Injection Count Last Ordered Date First Ordered Date INFLUENZA VACCINE QUAD PF 0. 5 ML IM (6 MOS+) 1 12/29/2022 documented in this encounter Care Teams Acid Bath Mixer Relationship Specialty Start Date End Date Unknown, Provider, PCP - General 12/29/22 04/10/23 documented as of this encounter
--- OUTSIDE RECORDS SUMMARY | 2023-10-13 10:12 | XMS_ITS | Encounter Summary ---
Author Organization [facility] Address [address] [place] [address] Care Team Providers Care Ladle Liner Helper Name Role Phone Unavailable Primary Care Provider Unavailabl e Encounter Details Date Type Department Care Team (Latest Contact Info) Description 12/11/2014 10:52 EDT - 12/11/2014 23:59 EDT Hospital Encounter [address] [address] Unknown, Provider, Discharge Disposition: Home or Self Care Social History Tobacco Use Types Packs/Day Years Used Date Smoking Tobacco: Never Assessed Sex and Gender Information Value Date Recorded Sex Assigned at Not on file Gender Identity Female 11/26/2022 16:52 EDT Sexual Orientation Not on file documented as of this encounter Discharge Disposition Disposition Code Departure Means Destination Home or Self Alf documented in this encounter Plan of Treatment Not on file documented as of this encounter Visit Diagnoses Not on filedocumented in this encounter
--- OUTSIDE RECORDS SUMMARY | 2023-10-13 10:12 | XMS_ITS | Encounter Summary ---
Author Organization [facility] Address [address] [place] [address] Care Team Providers Care Environmental Web Crawler Name Role Phone Unavailable Primary Care Provider Unavailabl e Encounter Details Date Type Department Care Team (Late st Contact Info) Description 07/11/2006 Before PRISM Converted Visit (Maple) [facility] - Maple conversion [address] [place] [address] Meri Reza NP [address] [place] [phone] Social History Tobacco Use Types Packs/Day Years Used Date Smoking Tobacco: Never Assessed Sex and Gender Information Value Date Recorded Sex Assigned at Not on file Gender Identity Female 11/26/2022 16:52 EDT Sexual Orientation Not on file documented as of this encounter Plan of Treatment Not on file documented as of this encounter Visit Diagnoses * Evaluation - Thomas Reza NP - 01/31/20091954 EST NEW PATIENT EVALUATION - 07/11/2006 THE PEDIATRIC GI TEAM: Pediatric GI, Hepatology & Nutrition MD Kirt Canchola MD Elizabeth F. Robinson, MS, PNP Carol Green MS, POWER DRIVEN BRUSH MAKER ([id number]), PROBLEM Abdominal pain. SUBJECTIVE was seen today in clinic by myself and Dr. Field at the request of Dr. Terrell for abdominal painand symptoms of reflux. She is accompanied by her mother who the history was obtained from. One year ago Ericka began having symptoms of nauseaand chest pain. She took a six-week course of famotidine 40 mg each day and within two weeks her symptoms resolved. After six weeks she was able to stop taking the medication. She was quite well over the summer and fall, however, in February her nauseaandchest pain recurred. She tried a few days of Prilosec which was unhelpful and then famotidine again. In spite of taking the medication her symptoms are only 40-50% improved. She continues to have daily abdominal pain. For the last three to four months it is disabling and makes her quite irritable. It has not interfered with her sleep, though it is quite disabling occasionally. It is also worse with stress or worse when she eats fatty foods, meat, spicy foods or caffeine. She has also had early satiety and regurgitates 2-3 times a day. She has had no vomiting and no weight loss. She has 2-3 bowel movements a day. They are soft and formed. She has no problems with constipation or diarrhea. Noblood in her stools. No urgency associated with them. No pain with bowel movements and regular periods. PAST MEDICAL HISTORY Remarkable for asthma. MEDICATION Her only medication is Advair which she takes intermittently. FAMILY HISTORY Remarkable for reflux in her father. There is no family history of inflammatory bowel disease or celiac disease. A visit questionnaire was reviewed. OBJECTIVE The physical exam is remarkable for some epigastric tenderness on palpation. The urinalysis was negative. Rectal exam and stool for occult blood was deferred. ASSESSMENT is a 16-year-old with symptoms consistent with gastroesophageal reflux that has recurred following treatment. Differential includes peptic ulcer disease, reflux, H. pylori, celiac disease, or much less likely eosinophilic esophagitis. RECOMMENDED PLAN 1. Discussed at length with Ericka and her mother. 2. Prevacid 30 mg each morning before breakfast. 3. Schedule upper endoscopy to be performed by Dr. Vicente Field on July 20, 2006. Additional documentation is available. Signed by Meri Reza NP 07/15/2006 11:36 Meri Reza NP Division of Pediatric Gastroenterology [phone] Division of Neonatology Follow-up [phone] - Meri Reza NP P - cam Job ID: [id number] Document ID: [id number] cc: Armond Terrell MD documented in this encounter
--- OUTSIDE RECORDS SUMMARY | 2023-10-13 10:12 | XMS_ITS | Encounter Summary ---
Author Organization [facility] Address [address] [place] [address] Care Team Providers Care Rabbit Dresser Name Role Phone Unavailable Primary Care Provider Unavailabl e Encounter Details Date Type Department Care Team (Late st Contact Info) Description 07/20/2006 13:26 EDT Hospital Encounter [facility] [address] [place] [address] Vicente Field MD [address] [place] [id number] Discharge Disposition: Auto Discharge Social History Tobacco Use Types Packs/Day Years Used Date Smoking Tobacco: Never Assessed Sex and Gender Information Value Date Recorded Sex Assigned at Not on file Gender Identity Female 11/26/2022 16:52 EDT Sexual Orientation Not on file documented as of this encounter Discharge Disposition Disposition Code Departure Means Destination Auto Discharge documented in this encounter Plan of Treatment Not on file documented as of this encounter Visit Diagnoses Not on filedocumented in this encounter
--- OUTSIDE RECORDS SUMMARY | 2023-10-13 10:12 | XMS_ITS | Encounter Summary ---
Author Organization [facility] Address [address] [place] [address] Care Team Providers Care Parking Meter Collector Name Role Phone Armond Terrell MD Primary Care Provider Unava ilable Encounter Details Date Type Department Care Team (Late st Contact Info) Description 01/15/2016 Historical Results Only [facility] Radiology Results [address] [place] [address] Armond Terrell MD Social History Tobacco Use [...] Associated Diagnosis Comments US PELVIS TRANSVAGINAL COMPLETE 01/15/2016 12:22 EDT documented in this encounter Results * US PELVIS TRANSVAGINAL (01/15/2016 12:22 EDT) Anatomical Region Laterality Modality Pelvis Other 01/15/2016 12:2 2 EDT Narrative 01/15/2016 12:27 EDT ? EXAM: ULTRASOUND/TRANSVAGINAL - SOUS CHEF KITCHEN MANAGER W/ DO EX. D/ (1059) ? CLINICAL INFORMATION: ? R10.31 RLQ ABD PAIN ? TRANSVAGINAL - SOUS CHEF KITCHEN MANAGER W/ DOPPLER ? Signs and Symptoms/Comments: ??R10.31 RLQ ABD PAIN ? Comparison: None ? Technique: Pelvic ultrasound was performed with color Doppler ? imaging. ? FINDINGS: ? Uterus: ? Orientation: Anteverted. ? Size: 8.4 x 3.2 x 4.4 cm ? Findings: None. ? Cervix: Normal. ? Endometrium: ? Echotexture: Homogeneous. ? Thickness: 2.4 mm ? Ovaries: ? Right ovary: ? Size: 3.8 x 1.9 x 2.9 cm. ? Doppler flow: Color Doppler flow is present. ? Findings: None. ? Left ovary: ? Size: 2.5 x 1.9 x 3.6 cm. ? Doppler flow: Color Doppler flow is present. ? Findings: None. ? Cul-de-sac: No free fluid. ? IMPRESSION: ? Normal pelvic ultrasound. ? REPORT SIGNED IN OTHER VENDOR SYSTEM 01/15/2016 ?Reported By: Elpidio Hedrick MD ? CC: ? Transcribed Date/Time: 01/15/2016 (1227) ? Senior Data Quality Analyst: .[email or web address] ? Printed Date/Time: 09/08/2018 (8391) ? PAGE 1 ? Signed Report ? Procedure Note Elpidio Hedrick MD - 01/31/2019 EXAM: ULTRASOUND/TRANSVAGINAL - SOUS CHEF KITCHEN MANAGER W/ DO EX. D/ (1059) CLINICAL INFORMATION: R10.31 RLQ ABD PAIN TRANSVAGINAL - SOUS CHEF KITCHEN MANAGER W/ DOPPLER Signs and Symptoms/Comments: R10.31 RLQ ABD PAIN Comparison: None Technique: Pelvic ultrasound was performed with color Doppler imaging. FINDINGS: Uterus: Orientation: Anteverted. Size: 8.4 x 3.2 x 4.4 cm Findings: None. Cervix: Normal. Endometrium: Echotexture: Homogeneous. Thickness: 2.4 mm Ovaries: Right ovary: Size: 3.8 x 1.9 x 2.9 cm. Doppler flow: Color Doppler flow is present. Findings: None. Left ovary: Size: 2.5 x 1.9 x 3.6 cm. Doppler flow: Color Doppler flow is present. Findings: None. Cul-de-sac: No free fluid. IMPRESSION: Normal pelvic ultrasound. REPORT SIGNED IN OTHER VENDOR SYSTEM 01/15/2016 Reported By: Elpidio Hedrick MD CC: Transcribed Date/Time: 01/15/2016 (1227) Senior Data Quality Analyst: Printed Date/Time: 09/08/2018 (5311) PAGE 1 Signed Report Armond Terrell MD IMG OB ORDERABLES documented in this encounter Visit Diagnoses Not on filedocumented in this encounter Care Teams Parking Meter Collector Relationship Specialty Start Date End Date Armond Terrell MD PCP - General 12/18/14 12/07/22 documented as of this encounter
--- OUTSIDE RECORDS SUMMARY | 2023-10-13 10:12 | XMS_ITS | Data Portability ---
Author Organization [place] [facility] Address [address] [place] [address] Assessment No assessment recorded. Plan of Treatment Reminders Order Date Submit Date Provider Last Modified By Organization Details Last Modified Time Details Appointments Nurse Visit 2023 09:30A M [facility] Nursing Staff Not available Not available Not available Office Visit 2023 10:30A M SAURABH VILLALOBOS Not available Not available Not available Lab TSH, serum, reflex free T4 2023 024 [email or web address] [facility] ([facility]), [address] [place] [address] [place], [address], 08/11/2023 15:37:47 ESR (erythroc yte sedimenta tion rate), blood 2023 024 [email or web address] [facility] ([facility]), [address] [place] [address] [place], [address], 07/18/2023 11:07:57 CBC w/ auto diff 2023 024 [email or web address] [facility] ([facility]), [address] [place] [address] [place], [address], 07/26/2023 09:46:54 CMP, serum or plasma 2023 024 [email or web address] [facility] ([facility]), [address] [place] [address] [place], [address], 08/11/2023 15:37:27 lipid panel, serum 2023 024 [email or web address] [facility] ([facility]), [address] [place] [address] [place], [address], 08/11/2023 15:38:13 TSH, serum, reflex free T4 2023 024 [facility] (Registration ), [address] [place] [address] [place], [address], 10/13/2023 09:45:30 CBC 2023 024 [facility] (Registration ), [address] [place] [address] [place], [address], 10/13/2023 09:45:29 CMP, serum or plasma - 1Y, 1P 2023 024 [facility] (Registration ), [address] [place] [address] [place], [address], 10/13/2023 09:45:28 Referral physical therapist referral 2023 024 [email or web address] [facility], [address] [facility], [facility] [address], [place], [address], 10/05/2023 09:13:34 cardiolog ist referral - patient requests Dr. Mcrae. 2023 024 [facility] (Envelope Addresser), [address] [place] [address], [place], [address], 09/16/2023 08:33:07 Procedures None recorded. Surgeries None recorded. Imaging None recorded. Medication Orders None recorded. Patient TargetsNo targets recorded. Patient InstructionsNo instructions recorded. Reason for Referral Sander Portable Machine Referral for Ta chycardia patient requests Dr. Mcrae. Referring Physician: Saurabh Villalobos, Family Medicine, Encounter Date: 07/07/2023 Physical Therapist Referral for Fibromyalgia Referring Physician: Saurabh Villalobos Family Medicine, Encounter Date: 07/07/2023 Results Created Date Observation Date Name Description Value Unit Range Abnormal Flag LastModifiedBy Organization Detail LastModifiedTime 07/26/19 24 07/26/2023 COMPL ETE BLOOD COUNT W/DIF F WBC 6.77 10_3/ uL 4.4-10 .8 normal Not Available [address] [place], [address] 07/26/2023 09:46:54 07/26/19 24 07/26/2023 COMPL ETE BLOOD COUNT W/DIF F RBC 4.68 10_6/ uL 3.93-5 .22 normal Not Available [address] [place], [address] 07/26/2023 09:46:54 07/26/19 24 07/26/2023 COMPL ETE BLOOD COUNT W/DIF F HGB 12.9 g/dL 11.2-1 5.7 normal Not Available [address] [place], [address] 07/26/2023 09:46:54 07/26/19 24 07/26/2023 COMPL ETE BLOOD COUNT W/DIF F HCT 40.7 % 36.0-4 6.0 normal Not Available [address] [place], [address] 07/26/2023 09:46:54 07/26/19 24 07/26/2023 COMPL ETE BLOOD COUNT W/DIF F MCV 87 fL 80-95 normal Not Available [address] [place], [address] 07/26/2023 09:46:54 07/26/19 24 07/26/2023 COMPL ETE BLOOD COUNT W/DIF F MCH 27.6 pg 27.0-3 3.0 normal Not Available [address] [place], [address] 07/26/2023 09:46:54 07/26/19 24 07/26/2023 COMPL ETE BLOOD COUNT W/DIF F MCHC 31.7 % 32.0-3 6.0 low Not Available [address] [place], [address] 07/26/2023 09:46:54 07/26/19 24 07/26/2023 COMPL ETE BLOOD COUNT W/DIF F RDW 13.5 % 11.7-1 4.6 normal Not Available [address] [place], [address] 07/26/2023 09:46:54 07/26/19 24 07/26/2023 COMPL ETE BLOOD COUNT W/DIF F platelet count 293 10_3/ uL 130-40 0 normal Not Available [address] [place], [address] 07/26/2023 09:46:54 07/26/19 24 07/26/2023 COMPL ETE BLOOD COUNT W/DIF F MPV 9.9 fL 8.0-11 .0 normal Not Available [address] [place], [address] 07/26/2023 09:46:54 07/26/19 24 07/26/2023 COMPL ETE BLOOD COUNT W/DIF F neutrophils % 58.5 Not Available [address], [address] 07/26/2023 09:46:54 07/26/19 24 07/26/2023 COMPL ETE BLOOD COUNT W/DIF F lymphocytes % 33.2 Not Available [address] [place], [address] 07/26/2023 09:46:54 07/26/19 24 07/26/2023 COMPL ETE BLOOD COUNT W/DIF F monocytes % 5.9 Not Available [address] [place], [address] 07/26/2023 09:46:54 07/26/19 24 07/26/2023 COMPL ETE BLOOD COUNT W/DIF F eosinophils % 1.6 Not Available [address], [address] 07/26/2023 09:46:54 07/26/19 24 07/26/2023 COMPL ETE BLOOD COUNT W/DIF F basophils % 0.7 Not Available [address] [place], [address] 07/26/2023 09:46:54 07/26/19 24 07/26/2023 COMPL ETE BLOOD COUNT W/DIF F immature grans % 0.1 Not Available [address], [address] 07/26/2023 09:46:54 07/26/19 24 07/26/2023 COMPL ETE BLOOD COUNT W/DIF F nucleated RBC 0.0 % 0.0-0. 3 normal Not Available [address] [place], [address] 07/26/2023 09:46:54 07/26/19 24 07/26/2023 COMPL ETE BLOOD COUNT W/DIF F absolute neutrophil count 3.95 10_3/ uL 1.2-6. 7 normal Not Available [address] [place], [address] 07/26/2023 09:46:54 07/26/19 24 07/26/2023 COMPL ETE BLOOD COUNT W/DIF F absolute lymphocyte count 2.25 10_3/ uL 1.2-3. 4 normal Not Available [address] [place], [address] 07/26/2023 09:46:54 07/26/19 24 07/26/2023 COMPL ETE BLOOD COUNT W/DIF F absolute monocyte count 0.40 10_3/ uL 0.1-0. 8 normal Not Available [address] [place], [address] 07/26/2023 09:46:54 07/26/19 24 07/26/2023 COMPL ETE BLOOD COUNT W/DIF F absolute eosinophil count 0.11 10_3/ uL 0.0-0. 7 normal Not Available [address] [place], [address] 07/26/2023 09:46:54 07/26/19 24 07/26/2023 COMPL ETE BLOOD COUNT W/DIF F absolute basophil count 0.05 10_3/ uL 0.0-0. 2 normal Not Available [address] [place], [address] 07/26/2023 09:46:54 07/26/19 24 07/26/2023 HEMOG LOBIN A1C hemoglobin A1C 5.4 % <5.7 Not Available [address], [address] 07/26/2023 10:08:58 07/26/19 24 07/26/2023 MIMI STERO L cholesterol 232 mg/dL <200 high Not Available [facility] [place], [address] 07/26/2023 10:32:04 07/26/19 24 07/26/2023 HDL MIMI STERO L HDL cholesterol 40 mg/dL 40-60 Not Available Anh evans [address] [place], [address] 07/26/2023 10:32:05 07/26/19 24 07/26/2023 DIREC T LDL CHOL direct LDL chol 138 mg/dL <100 high Not Available [address], [address] 07/26/2023 10:32:05 07/26/19 24 07/26/2023 GLUCO SE glucose 91 mg/dL 74-106 normal Not Available [address] [place], [address] 07/26/2023 10:44:07 07/26/19 24 07/26/2023 BUN BUN 11 mg/dL 7-18 normal Not Available [address] [place], [address] 07/26/2023 10:44:08 07/26/19 24 07/26/2023 CREAT ININE creatinine 0.9 mg/dL 0.55-1 .02 normal Not Available [address] [place], [address] 07/26/2023 10:44:08 07/26/19 24 07/26/2023 CREAT ININE estimated GFR 86.57 mL/min /1.73m 2 Not Available [address] [place], [address] 07/26/2023 10:44:08 07/26/19 24 07/26/2023 BILIR UBIN, TOTAL bilirubin, total 0.2 mg/dL 0.2-1. 0 normal Not Available [address] [place], [address] 07/26/2023 10:44:09 07/26/19 24 07/26/2023 SODIU M sodium 138 mmol/ L 136-14 5 normal Not Available [address] [place], [address] 07/26/2023 10:44:09 07/26/19 24 07/26/2023 POTAS SIUM potassium 4.0 mmol/ L 3.5-5. 1 normal Not Available [address] [place], [address] 07/26/2023 10:44:10 07/26/19 24 07/26/2023 CHLOR GIOVANI chloride 103 mmol/ L 98-107 normal Not Available [address] [place], [address] 07/26/2023 10:44:10 07/26/19 24 07/26/2023 CO2 CO2 25.5 mmol/ L 21.0-3 2.0 normal Not Available [address] [place], [address] 07/26/2023 10:44:11 07/26/19 24 07/26/2023 AST AST 12 U/L 15-37 low Not Available [address] [place], [address] 07/26/2023 10:44:11 07/26/19 24 07/26/2023 ALT ALT 35 U/L 14-59 normal Not Available [address] [place], [address] 07/26/2023 10:44:12 07/26/19 24 07/26/2023 TSH TSH 2.52 uIU/m L 0.36-3 .74 normal Not Available [address] [place], [address] 07/26/2023 10:44:12 07/26/19 24 07/26/2023 VITAM IN D 25 TOTAL vitamin D 25 total 30.5 NG/mL 30-100 normal Not Available [address], [address] 07/26/2023 10:56:05 07/26/19 24 07/26/2023 GLUCO SE glucose 91 mg/dL 74-106 normal Not Available Juana [email or web address] [address] [place], [address] 07/26/2023 11:01:10 07/26/19 24 07/26/2023 BUN BUN 11 mg/dL 7-18 normal Not Available [address] [place], [address] 07/26/2023 11:01:10 07/26/19 24 07/26/2023 CREAT ININE creatinine 0.9 mg/dL 0.55-1 .02 normal Not Available [address] [place], [address] 07/26/2023 11:01:11 07/26/19 24 07/26/2023 CREAT ININE estimated GFR 86.57 mL/min /1.73m 2 Not Available [address] [place], [address] 07/26/2023 11:01:11 07/26/19 24 07/26/2023 BILIR UBIN, TOTAL bilirubin, total 0.2 mg/dL 0.2-1. 0 normal Not Available [address] [place], [address] 07/26/2023 11:01:11 07/26/19 24 07/26/2023 SODIU M sodium 138 mmol/ L 136-14 5 normal Not Available [address] [place], [address] 07/26/2023 11:01:12 07/26/19 24 07/26/2023 POTAS SIUM potassium 4.0 mmol/ L 3.5-5. 1 normal Not Available [address] [place], [address] 07/26/2023 11:01:12 07/26/19 24 07/26/2023 CHLOR GIOVANI chloride 103 mmol/ L 98-107 normal Not Available [address] [place], [address] 07/26/2023 11:01:13 07/26/19 24 07/26/2023 CO2 CO2 25.5 mmol/ L 21.0-3 2.0 normal Not Available [address] [place], [address] 07/26/2023 11:01:13 07/26/19 24 07/26/2023 LDH LDH 135 U/L 81-234 normal Not Available [address] [place], [address] 07/26/2023 11:01:14 07/26/19 24 07/26/2023 AST AST 12 U/L 15-37 low Not Available [address] [place], [address] 07/26/2023 11:01:15 07/26/19 24 07/26/2023 ALT ALT 35 U/L 14-59 normal Not Available [address] [place], [address] 07/26/2023 11:01:15 07/26/19 24 07/26/2023 GGT GGT 18 U/L 5-55 normal Not Available [address] [place], [address] 07/26/2023 11:01:15 07/26/19 24 07/26/2023 TSH TSH 2.52 uIU/m L 0.36-3 .74 normal Not Available [address] [place], [address] 07/26/2023 11:01:16 07/26/19 24 07/26/2023 FREE T4 free T4 0.99 NG/dL 0.76-1 .46 normal Not Available [address] [place], [address] 07/26/2023 11:01:16 07/26/19 24 07/26/2023 PROLA CTIN prolactin 16.7 NG/mL see note Not Available [address] [place], [address] 07/27/2023 09:58:09 07/26/19 24 07/26/2023 T3, TOTAL T3, total 164 NG/dL 97-169 Not Available Juana retana [address] [place], [address] 07/27/2023 09:58:12 07/26/19 24 07/26/2023 PROLA CTIN prolactin 16.7 NG/mL see note Not Available [facility] [address] , [place], [address] 07/27/2023 09:58:11 Result Notes None recorded. Problems Name Status Onset Date Resolution Date Notes Provider Name and Address Organization Details Recorded Time Anxiety disorder Active [address], [place], [address], [facility] 12:18:30 Attention deficit hyperactivity disorder Active 2023 Dx age 20. Welbutrin MD [address], [place], [address], [facility] 12:17:33 History of asthma Active 2023 mild intermittant MD [address], [place], [address], [facility] 11:41:45 Multiple joint pain Completed 202307/07/[address], [place], [address], [facility] 11:39:45 Fibromyalgia Active [address], [place], [address], [facility] 12:18:41 Bipolar disorder Active 2023 type [address], [place], [address], [facility] 12:18:34 Anti-nuclear factor detected Completed 202307/07/[address], [place], [address], [facility] 4 11:39:39 Hyperlipidemia Active [address], [place], [address], [facility] 4 11:39:20 Irritable bowel syndrome Active 2023 Diarrhea predominant. Diet controlled. MD [address], [facility] [address], [facility] 4 12:17:36 Chronic low back pain Completed 202307/07/[address], [facility] [address], [facility] 4 11:38:52 Adult health examination Active [address], [facility] [address], [facility] 4 12:18:22 Tachycardia Active 2002 presycopal MD [address], [place], [address], [facility] 4 12:18:19 Near syncope Active 2023 ? POTS MD [address], [place], [address], [facility] 4 12:18:04 Obesity Active 2023 BMI [address], [place], [address], [facility] 4 12:17:30 Vitamin D deficiency Active [address], [place], [address], [facility] 4 12:19:15 Problem Notes None recorded. Procedures Surgical History Date Name Laterality Status Provider Name and Address Organization Details Recorded Time 08/30/2022 Date of Last Pap Smear completed ALAINA JENNINGS, [facility] 07/07/2023 11:20:15 Imaging Results None recorded. Procedure Notes None recorded. Medical Equipment None Reported. Allergies Allergen ID Allergen Name Allergen Category Reaction Reaction Severity Criticality Documentation Date Start Date Code Code System Note Provider Name and Address Organization Details Recorded Time 41268 iodine medicatio n rash moderate high 04/27/2023 5933 RxNorm ALAINA JENNINGS, [facility] 4 16:50:07 55117 kiwi fruit extract food Not available Not available high 07/07/2023 42998 01 RxNorm ALAINA JENNINGS, [facility] 4 11:13:15 71496 Seroquel medicatio n other severe high 07/07/2023 51632 RxNorm suici shashank ideat ions ALAINA JENNINGS, [facility] 4 11:42:14 70394 lamotrigi ne medicatio n photosens itivity severe high 07/07/2023 13265 RxNorm ALAINA JENNINGS, [facility] 4 11:14:13 Medications Name Sig Start Date Stop Date Status Note LastModified by Organization Details LastModified Time trazodone 50 mg tablet Take 1 tablet as needed by oral route at bedtime. active 03/31-1/2 at bedtime Not Available Not Available Not Available Risperdal 1 mg tablet Take 1 tablet every day by oral route as directed . active patient uses prn for her manic episodee s Not Available Not Available Not Available bupropion HCl SR 100 mg tablet,12 hr sustained -release TAKE 1 TABLET BY MOUTH TWICE A DAY active Not Available Not Available No t Available famotidin e 20 mg tablet Take 1 tablet twice a day by oral route. active Not Available Not Available No t Available hydroxyzi ne HCl 25 mg tablet active Not Available Not Available No t Available gabapenti n 100 mg capsule TAKE 1 TO 3 CAPSULES BY MOUTH ONCE A DAY DIRECTED active Not Available Not Available No t Available ergocalci ferol (vitamin D2) 1,250 mcg (50,000 unit) capsule TAKE 1 CAPSULE BY MOUTH ONE TIME PER WEEK 10/12 completed Not Available Not Available Not Available diazepam 5 mg tablet TAKE 1 TABLET 1/2 HOUR PRIOR TO PROCEDUR E AND 1 TABLET DURING THE PROCEDUR E IF NEEDED 10/12 completed Not Available Not Available Not Available Tylenol Extra Strength 500 mg tablet Take 2 tablets as needed by oral route. 07/06 completed at bedtime Not Available Not Available Not Available Wellbutri n SR 200 mg tablet, 12 hr sustained -release Take 1 tablet every day by oral route. 10/12 completed Not Available Not Available Not Available B Complex 1 po daily active Not Available Not Available No t Available magnesium oxide active Not Available Not Available Not Available Tylenol 2 at qhs 07/06 completed Not Available Not Available Not Available cholecalc iferol (vitamin D3) 1,250 mcg (50,000 unit) capsule Take 1 capsule every week by oral route. active Not Available Not Available No t Available CoQ-10 100 mg capsule Take twice a day by oral route. active Not Available Not Available No t Available ProAir RespiClic k 90 mcg/actua tion breath activated Inhale 2 puffs every 4 hours by inhalati on route. active Not Available Not Available No t Available Rexulti 3 mg tablet Take 1.5 tablets every day by oral route. active [facility] Not Available Not Available Not Available turmeric active Not Available Not Avai lable Not Available Vitals Date Recorded Body weight Body mass index (BMI) Body height Body temperature Oxygen saturation Oxygen saturation in Arterial blood by Pulse oximetry Heart rate Heart rate Heart rate Heart rate Systolic blood pressure Diastolic blood pressure Systolic blood pressure Diastolic blood pressure Systolic blood pressure Diastolic blood pressure Systolic blood pressure Diastolic blood pressure Provider Name and Address Organization Details Last Updated DateTime 4 872062. 98 g 35.1 kg/m2 175.26 cm 97.3 [degF] 99 % 99 % 77 /min 85 /min 77 /min 72 /min 126 mm[Hg] 74 mm[Hg] 120 mm[Hg] 78 mm[Hg] 123 mm[Hg] 88 mm[Hg] 124 mm[Hg] 80 mm[Hg] ALBERTO BENSON MA [facility]. 4 12:31:36 Date Recorded Body height Body temperature Oxygen saturation Oxygen saturation in Arterial blood by Pulse oximetry Heart rate Body mass index (BMI) Body weight Systolic blood pressure Diastolic blood pressure Provider Name and Address Organization Details Last Updated DateTime 175.26 cm 97.3 [degF] 99 % 99 % 75 /min 35.1 kg/m2 054253. 98 g 138 mm[Hg] 92 mm[Hg] ALBERTO BENSON MA [facility] 14:17:20 Date Recorded Body height Provider Name an d Address Organization Details Last Updated DateTime 10/13/2023 175.26 cm TAYLOR LAND CMA [facility] 10/13/2023 09:28:25 Social History Question Answer Notes LastModified by Organizat ion Details LastModified Time Tobacco Smoking Status Former Smoker SAURABH VILLALOBOS MD [address], [place], [address] 07/07/2023 11:43:18 What Is Your Current Pack Years? 10packyears [email or web address] Information not available 07/07/2023 Sex: Unknown Functional Status None recorded. Mental Status None recorded. Family History Relationship Description Onset Age of this Age Resolved Age Notes Father Atrial fibrillation Father Bipolar disorder Father Coronary arteriosclerosis Father Hyperlipidemia Father Hypertensive disorder Mother Rheumatoid arthritis Brother Bipolar I disorder Brother Sleep apnea Brother Obese Medical History Condition Response Kidney Stones N Breast Cancer N Lung Disease Y Defects or Inherited Disease N Anesthesia Complications N Gastrointestinal Disease N Muscle, Joint, or Bone Problems Vision or Eye Problems N Cancer N Stroke N Bladder or Kidney Problems N Back Injury N Psychiatric/Mental Health Condition Y Brain Injury N Bleeding Disorder N Seizures/Epilepsy N Diverticulitis N Substance Abuse N Heart Disease N Pulmonary Embolism N Gynecological History Statement/Question Response Date of Last Pap Smear 08/30/2022 LMP Approximate Obstetrics History GPAL:G 0 P 0 0 0 0 Immunizations Vaccine Type Date Status Provider Name and Address Organization Details Recorded Time Tdap 12/26/2018 completed ALAINA JENNINGS [facility] 07/06/2023 16:05:15 Influenza, [place] 12/25/2018 completed ALAINA JENNINGS [facility] 07/06/2023 16:05:43 Past Encounters Encounter ID Performer Location Encounter Start Date Encounter Closed Date Diagnosis/Indication Diagnosis SNOMED-CT Code [id number] SAURABH VILLALOBOS MD [address] [address] 07/07/2023 10:59:10 07/07/2023 12:36:33 Tachycardia 2299608 Bipolar disorder 8876175 4 Fibromyalgia 185336526 Hyperlipidemia 51283955 Near syncope 470553134 [id number] SAURABH VILLALOBOS MD [address] [address] 07/14/2023 13:41:20 07/14/2023 14:58:40 Tachycardia 9632900 Near syncope [id number] TAYLOR LAND CMA [address] [address] 10/13/2023 09:05:26 10/13/2023 09:39:41 Hyperlipidemia 21858208 Near syncope 832121023 Fibromyalgia 745443615 Health Concerns Section Related Observation LastModified by Organization Detai ls LastModified Time None Recorded Concern Status LastModified by Organization Details LastModified Time None Recorded Advance Directives Directive None Recorded Payers Encounter Date Sequence Insurance Name Policy Number Policy Al[employer] Covered Member ID Almodov[employer] Member ID Guarantor Name 07/07/2023 1 [employer] [facility] [place] [employer] (PPO) [id number] [facility] [id number] Erickahany Perdomo 07/14/2023 1 [employer]PP[employer]) [id number] Ericka Freya [id number] Ericka Perdomo 10/13/2023 1 HEALTH PLANS ON LICENSE OF [facility] [employer] PILGRIM (PPO) [id number] Ericka Conor Notes Date Note Type Note Provider Name and Address Organization Details Recorded Time 07/07/2023 text/html HPI Notes: Patie nt here first visit to get established and some issues she needs to talk about. Is concerned she likely has postural orthostatic tachycardia syndrome. Has episodes where she will have symptoms of orthostasis and tachycardia she stands up, has been presyncopal with it. Has been seen emergency was multiple times with symptoms, workups always been normal. Her rate was up to 130s during the spells. Has a fibromyalgia, left recent joint and muscle pain. Uses gabapentin for this. Appreciate referral to physical therapy to help her develop a better program to get through this. Bipolar disorder, type I. Quite stable on Rexulti. Does have ADHD, cannot take stimulants because of her bipolar. Does get fair improvement with her Wellbutrin. Is fully [facility]. Uses as needed Risperdal. Has felt quite stable for quite some time. MD [address], [place], [address], [facility]. 07/10/2023 21:44:38 07/14/2023 text/html HPI Notes: Niki nt here for ER follow-up. Had another episode of chest discomfort and hypertension. Workup was unremarkable as it has been typically. Feeling her usual self again. No chest pain lightheadedness or respiratory symptoms. Has her chronic myalgias for for myalgia. Has yet to hear from cardiology regarding the referral. We are looking for that as well as a tilt table test. MD [address], [place], [address], [facility]. 07/17/2023 03:32:39 OBGyn Episode No OBEpisode recorded.
--- OUTSIDE RECORDS SUMMARY | 2023-10-13 10:12 | XMS_ITS | Encounter Summary ---
Author Organization [facility] Address [address] [place] [address] Care Team Providers Care Utility Porter Name Role Phone Armond Terrell MD Primary Care Provider Unava ilable Encounter Details Date Type Department Care Team (Late st Contact Info) Description 03/11/2011 Historical Results Only [facility] [place] [facility] - Main [place] [address] [place], [place] [phone] Nila Manley PA-C [address] [address] Social History Tobacco Use Types Packs/Day Years Used Date Smoking Tobacco: Never Assessed Sex and Gender Information Value Date Recorded Sex Assigned at Not on file Gender Identity Female 11/26/2022 16:52 EDT Sexual Orientation Not on file documented as of this encounter Plan of Treatment Not on file documented as of this encounter Procedures Procedure Name Priority Date/Time Associated Diagnosis Comments PAP TEST Routine 03/11/2011 documented in this encounter Results * PAP TEST (03/11/2011) 03/11/2011 03/11/2011 13: 21 EST Narrative [facility] - 03/16/2011 13:56 EST ----- ------- Name: EDITH BRAUN ?: [birth year] ?Age/Sex: 28/F ?Unit#: [id number] ? Loc: AF ? Status: REG POV ?? Reg Date: 03/11/11 ? Pt.Phone Number: ? ----- ------- Specimen: [id number] ?STATUS: SOUT ?Spec Date:03/11/11 ? Physician Copies: ?Nila Manley PA-C Tissues: ? Cervical/Endo Pap ?Armond Terrell MD CPT: 93447 ?? Units: ??1 ----- ------- ? CYTOLOGY DIAGNOSIS SPECIMEN ADEQUACY: ?Satisfactory for evaluation. Transformation zone component present. GENERAL CATEGORIZATION: ?Negative for Intraepithelial Lesion or Malignancy DESCRIPTIVE DIAGNOSIS: ? Negative for Intraepithelial Lesion or Malignancy. RECOMMENDATIONS/COMMENTS: ?None. ----- ------- ORDER QUERIES: LMP: 02/20/11- NL ? N Post ? N ??PREVIOUS ATYPICAL: N BCP/HRT? N Rad Rx? N IUD? N ??PAP PLUS HPV? N ??REFLEX TO HR-HPV IF ASCUS ?? REFLEX TO HPV 16/18 IF HPV POS/PAP NEG ?? HPV REGARDLESS?RFLX HPV IF LSIL ?? IF ASCUS DO HPV? Y Signed Kira Sheldon CT(ASCP) 03/16/11 ? By the signature above, the attending physician certifies that he/she has personally conducted a gross and/or microscopic examination of the described specimens and rendered or confirmed the above diagnosis. Test Performed by [facility], [address] [address] Literary Writer: Ruthie Leigh MD PHD ----- ------- Nila Manley PA-C PATHOLOGY ORDERABLES [facility] documented in this encounter Visit Diagnoses Not on filedocumented in this encounter Care Teams Utility Porter Relationship Specialty Start Date End Date Armond Terrell MD PCP - General 12/18/14 12/07/22 documented as of this encounter
--- OUTSIDE RECORDS SUMMARY | 2023-10-13 10:12 | XMS_ITS | Encounter Summary ---
Author Organization [facility] Address [address] [place] [address] Care Team Providers Care Residential Carpenter Name Role Phone Unavailable Primary Care Provider Unavailabl e Encounter Details Date Type Department Care Team (Late st Contact Info) Description 07/20/2006 Results Only [facility] [address] [place], [place] [phone] Vicente Field MD [address] [place] [address] Social History Tobacco Use Types Packs/Day Years Used Date Smoking Tobacco: Never Assessed Sex and Gender Information Value Date Recorded Sex Assigned at Not on file Gender Identity Female 11/26/2022 16:52 EDT Sexual Orientation Not on file documented as of this encounter Plan of Treatment Not on file documented as of this encounter Procedures Procedure Name Priority Date/Time Associated Diagnosis Comments SURGICAL PATHOLOGY Routine 07/20/2006 0:00 EDT documented in this encounter Results * SURGICAL PATHOLOGY (07/20/2006 0:00 EDT) Pathology Report: SURGICAL PATHOLOGY REPORT Reports generated via electronic interface contain original data; however they are lacking the format of the original report. Caution should be taken when reading/interpreti ng unformatted reports. Name: ? KRYSTAL BRAUNSSICA N ? Accession #: ? [id number] ? : ? 1990 (Age: 16) ??F ? Collect Date: ? 07/20/2006 ? Location: ? [facility] ? Receive Date: ? 07/20/2006 ? Provider: VICENTE LAMA MD Copy to: ? Final Pathologic Diagnosis: A. ?Esophagus, biopsy: 1. 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 2. ? No evidence of reflux esophagitis identified. B. ?Stomach, antrum, biopsy: 1. ?Antrum-type and body-type gastric mucosa with mild chronic gastritis. 2. ? No significant inflammatory activity or Helicobacter pylori-like microorganisms identified on H&E stain. C. ?Duodenum, biopsy: 1. ?Duodenal mucosa with no specific pathologic features. 2. ? No evidence of celiac sprue identified. Document reviewed and electronically signed by: CASE BOYER MD Report ??Date: 07/22/2006 16:59 By the signature above, the attending physician certifies that he/she has personally conducted a gross and/or microscopic examination of the described specimens and rendered or confirmed the above diagnosis. Specimen(s) Received: A. ?Esophagus B. ? Antrum C. ? Duodenum Clinical History: ? GERD sx; epigastric pain Gross Description: ? Received in Hollande's fixative labelled Carlos Manuel archuleta A is a díaz-pink 0.3 x 0.2 x 0.2 cm soft tissue fragment. The specimen is entirely submitted as (A). Received in Hollande's fixative labelled Hollyer and B is a díaz-pink 0.5 x 0.3 x 0.2 cm soft tissue fragment. The specimen is entirely submitted as (B). Received in Hollande's fixative labelled Hollyer and C is a díaz-pink 0.3 x 0.2 x 0.2 cm soft tissue fragment. The specimen is entirely submitted as (C). (Jorge Khalil/beena End of Report [facility] 07/20/2006 07/20/2006 1:1 0 EDT Vicente Field MD PATHOLOGY ORD ERABLES [facility] [address] [place] [address] documented in this encounter Visit Diagnoses Not on filedocumented in this encounter
--- OUTSIDE RECORDS SUMMARY | 2023-10-13 10:12 | XMS_ITS | Encounter Summary ---
Author Organization [facility] Address [address] [place] [address] Care Team Providers Care Patcher Bowling Ball Name Role Phone Armond Terrell MD Primary Care Provider Unava ilable Encounter Details Date Type Department Care Team (Late st Contact Info) Description 07/10/2013 Historical Results Only [facility] [place] [address] [phone] Armond Terrell MD Social History Tobacco Use [...] Date/Time Associated Diagnosis Comments PAP TEST Routine 07/10/2013 9:42 EDT documented in this encounter Results * PAP TEST (07/10/2013 9:42 EDT) 07/10/2013 9:42 EDT 07/11/2013 9:42 EDT Narrative [facility] - 07/13/2013 15:29 EDT ----- ------- Name: EDITH BRAUN ?: 89 ?Age/Sex: ?Unit#: [id number] ? Loc: AF ? Status: REG POV ?? Reg Date: 07/10/13 ? Pt.Phone Number: ? ----- ------- Specimen: [id number] ?STATUS: SOUT ?Spec Date:07/10/13 ? Physician Copies: ?Armond Terrell MD Tissues: ? Cervical/Endo Pap ? CPT: 33691 ?? Units: ??1 ----- ------- ? CYTOLOGY DIAGNOSIS SPECIMEN ADEQUACY: ?Satisfactory for evaluation. Transformation zone component present. GENERAL CATEGORIZATION: ?Negative for Intraepithelial Lesion or Malignancy DESCRIPTIVE DIAGNOSIS: ? Negative for Intraepithelial Lesion or Malignancy. ----- ------- ORDER QUERIES: LMP: POST PAR- PP ? N Post ? Y ??PREVIOUS ATYPICAL: N BCP/HRT? N Rad Rx? N IUD? N ??PAP PLUS HPV? N ??REFLEX TO HR-HPV IF ASCUS Y REFLEX TO HPV 16/18 IF HPV POS/PAP NEG ?? HPV REGARDLESS?RFLX HPV IF LSIL ?? Signed Jillian Riley CT(ASCP) 07/13/13 By the signature above, the attending physician certifies that he/she has personally conducted a gross and/or microscopic examination of the described specimens and rendered or confirmed the above diagnosis. Test Performed by [facility], [address] [place], [place] [id number] Suspension Cord Tier: Ruthie Leigh MD PHD ----- ------- Armond Terrell MD PATHOLOGY ORDERABLES [facility] documented in this encounter Visit Diagnoses Not on filedocumented in this encounter Care Teams Patcher Bowling Ball Relationship Specialty Start Date End Date Armond Terrell MD PCP - General 12/18/14 12/07/22 documented as of this encounter
--- OUTSIDE RECORDS SUMMARY | 2023-10-13 10:12 | XMS_ITS | Encounter Summary ---
Author Organization [facility] Address [address] [place] [address] Care Team Providers Care Manager Analysis Name Role Phone Armond Terrell MD Primary Care Provider Unava ilable Encounter Details Date Type Department Care Team (Late st Contact Info) Description 12/11/2014 Historical Results Only [facility] Radiology Results [address] [place] [address] Marcellus Reis, DPM [address] [place], [place] [phone] Social History Tobacco Use Types Packs/Day Years Used Date Smoking Tobacco: Never Assessed Sex and Gender Information Value Date Recorded Sex Assigned at Not on file Gender Identity Female 11/26/2022 16:52 EDT Sexual Orientation Not on file documented as of this encounter Plan of Treatment Not on file documented as of this encounter Procedures Procedure Name Priority Date/Time Associated Diagnosis Comments XR FOOT LEFT 3 OR MORE VIEWS 12/11/2014 11:32 EDT documented in this encounter Results * XR FOOT LEFT 3 OR MORE VIEWS (12/11/2014 11:32 EDT) Anatomical Region Laterality Modality Lower Extremities Left Other 12/11/2014 11:3 2 EDT Narrative 12/11/2014 11:41 EDT ? EXAM: RADIOLOGY/FOOT-LEFT-3+VIEW ?EX. D/ (1035) ? CLINICAL INFORMATION: ? LEFT LATERAL FOOT PAIN. XRAYS DONE AT [facility] ? Indication: Left lateral foot pain. ? Comparison: None. ? Technique: 3 views. ? Findings: A small soft tissue and bony bunion is present. There is ? minimal hallux valgus deformity. There is an accessory ossicle ? adjacent to the cuboid bone. ? There is a broad interface between the navicular bone and cuboid with ? 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 Consider further ? assessment with MRI as clinically indicated. Bone density is normal. ? No fracture is seen. ? Impression: ? 1. 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 Consider further assessment with MRI as clinically ? indicated. ? 1. Mild soft tissue and bony bunion and hallux valgus deformity. ? REPORT SIGNED IN OTHER VENDOR SYSTEM 12/11/2014 ?Reported By: Wander Varghese MD ? CC: ? Transcribed Date/Time: 12/11/2014 (1141) ? Foot Doctor: ? Printed Date/Time: 09/05/2018 (1552) ? PAGE 1 ? Signed Report ? Procedure Note Wander Varghese MD - 01/30/2019 EXAM: RADIOLOGY/FOOT-LEFT-3+VIEW EX. D/ (1035) CLINICAL INFORMATION: LEFT LATERAL FOOT PAIN. XRAYS DONE AT [facility] Indication: Left lateral foot pain. Comparison: None. Technique: 3 views. Findings: A small soft tissue and bony bunion is present. There is minimal hallux valgus deformity. There is an accessory ossicle adjacent to the cuboid bone. 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 Consider further assessment with MRI as clinically indicated. Bone density isnormal. No fracture is seen. Impression: 1. 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 Consider further assessment with MRI as clinically indicated. 1. Mild soft tissue and bony bunion and hallux valgus deformity. REPORT SIGNED IN OTHER VENDOR SYSTEM 12/11/2014 Reported By: Wander Varghese MD CC: Transcribed Date/Time: 12/11/2014 (1141) Foot Doctor: Printed Date/Time: 09/05/2018 (7997) PAGE 1 Signed Report Marcellus Reis DPM IMG DIAGNOSTIC IMAG ING ORDERABLES documented in this encounter Visit Diagnoses Not on filedocumented in this encounter Care Teams Manager Analysis Relationship Specialty Start Date End Date Armond Terrell MD PCP - General 12/18/14 12/07/22 documented as of this encounter
--- OUTSIDE RECORDS SUMMARY | 2023-10-13 10:12 | XMS_ITS | Encounter Summary ---
Author Organization [facility] Address [address] [place] [address] Care Team Providers Care Rail Filler Name Role Phone Armond Terrell MD Primary Care Provider Unava ilable Encounter Details Date Type Department Care Team (Late st Contact Info) Description 08/27/2015 Historical Results Only [facility] [place] [facility] [place] [address] [place] [address] Gardenia Roger MD [address] [place] [address], [address] [place] [address] Social History Tobacco Use Types Packs/Day Years [...] Date/Time Associated Diagnosis Comments PAP TEST Routine 08/27/2015 documented in this encounter Results * PAP TEST (08/27/2015) 08/27/2015 08/28/2015 9:5 8 EDT Narrative [facility] - 09/05/2015 9:25 EDT ----- ------- Name: EDITH BRAUN ?: [birth year] ?Age/Sex: 28/F ?Unit#: [id number] ? Loc: AGO ? Status: REG POV ?? Reg Date: 08/27/15 ? Pt.Phone Number: ? ----- ------- Specimen: [id number] ?STATUS: SOUT ?Spec Date:08/27/15 ? Physician Copies: ?Gardenia Roger MD ?? Tissues: ? Cervical/Endo Pap ?Armond Terrell MD CPT: 12141 ?? Units: ??1 ----- ------- ? CYTOLOGY [...] confirmed the above diagnosis. Test Performed by [facility], [address] [facility] [address] Seismic Prospecting Observer: Ruthie Leigh MD PHD ----- ------- Gardenia Roger MD PATHOLOGY ORDERABLES [facility] documented in this encounter Visit Diagnoses Not on filedocumented in this encounter Care Teams Rail Filler Relationship Specialty Start Date End Date Armond Terrell MD PCP - General 12/18/14 12/07/22 documented as of this encounter
[2023-10-13 15:25] LABS: HCT 42.2 % (36.0-46.0); HGB 13.2 g/dL (11.2-15.7); MCHC 31.3 % (32.0-36.0); MCV 87 fL (80-95); MPV 10.3 fL (8.0-11.0); Platelet Count 348 10^3/uL (130-400); RBC 4.88 10^6/uL (3.93-5.22); RDW 13.9 % (11.7-14.6); RDW-SD 44.4 fL; WBC 10.17 10^3/uL (4.4-10.8)
[2023-10-13 15:56] LABS: ALT 31 U/L (14-59); AST 14 U/L (15-37); Alkaline Phosphatase 93 U/L (46-116); BUN 13 mg/dL (7-18); Bilirubin, Total 0.41 mg/dL (0.2-1.0); CREATININE 0.9 mg/dL (0.55-1.02); Calcium 9.4 mg/dL (8.5-10.1); Chloride 103 mmol/L (98-107); Estimated GFR 86.57 (mL/min/1.73m2); Glucose 88 mg/dL (74-106); Potassium 4.5 mmol/L (3.5-5.1); Sodium 138 mmol/L (136-145); TSH (W/Ref FT4) 2.67 uIU/mL (0.36-3.74); Total Protein 7.6 g/dL (6.4-8.2)
== END 2023-10-13 10:09 | disposition home or self-care (01) ==
LOC: NCHCN 10:08
PROVIDERS: Visit Provider Family Medicine
DX: M79.7 Fibromyalgia (principal); E78.5 Hyperlipidemia, unspecified; R55 Syncope and collapse
CPT/HCPCS: 80053; 85027; 84443

== ENCOUNTER 2024-05-23 03:18 | Outpatient (CLI) | payer OTHER, SELFPAY ==
[2024-05-23 09:17] LABS: ESR 19 mm/hr (0-20)
[2024-05-23 10:02] LABS: Hemoglobin A1C 5.6 % (<5.7)
[2024-05-23 10:03] LABS: Iron 82 ug/dL (50-170); Total Iron Binding Capacity 375 ug/dL (250-450); Transferrin Sat 22 % (15-50)
[2024-05-23 10:16] LABS: Vitamin D 25 Total 28.3 ng/mL (30-100)
[2024-05-23 10:22] LABS: ALT 23 U/L (14-59); AST 13 U/L (15-37); Albumin 3.6 g/dL (3.4-5.0); Alkaline Phosphatase 96 U/L (46-116); Anion Gap 8.1 mmol/L (3-11); BUN 10 mg/dL (7-18); Bilirubin, Total 0.38 mg/dL (0.2-1.0); CO2 26.9 mmol/L (21.0-32.0); CREATININE 0.8 mg/dL (0.55-1.02); Calcium 9.3 mg/dL (8.5-10.1); Calculated LDL 134 mg/dL (<100); Chloride 106 mmol/L (98-107); Cholesterol 219 mg/dL (<200); Estimated GFR 99.09 (mL/min/1.73m2); Ferritin 39 ng/mL (8-252); Glucose 96 mg/dL (74-106); HDL Cholesterol 38 mg/dL (40-60); Magnesium 2.1 mg/dL (1.8-2.4); Sodium 141 mmol/L (136-145); TSH 2.31 uIU/mL (0.36-3.74); Total Protein 7.7 g/dL (6.4-8.2); Triglyceride 239 mg/dL (<150); Vitamin B12 607 pg/mL (193-986)
[2024-05-23 10:24] LABS: Folate > 20.0 ng/mL (8.6-20.0)
[2024-05-23 10:42] LABS: FREE T4 0.99 ng/dL (0.76-1.46)
[2024-05-23 17:57] LABS: CRP, High Sensitivity 14.63 mg/L (See Note)
[2024-05-23 18:28] LABS: T3,Free 5.4 pg/mL (2.8-5.3)
[2024-05-23 18:56] LABS: Thyroperoxidase Antibody <28 U/mL (<=60)
[2024-05-25 10:06] LABS: DHEA Sulfate 313 ug/dL (96-512)
[2024-05-25 10:46] LABS: Apolipoprotein B, S 119 mg/dL; Lipoprotein (a) 183 nmol/L (<75)
[2024-05-25 11:10] LABS: Homocysteine 7.1 umol/L (5.0-13.9)
[2024-05-25 16:36] LABS: Apolipoprotein A1 126 mg/dL (>=140)
[2024-05-29 21:09] LABS: Pyridoxal 5-Phosphate (PLP), P 4 mcg/L (5-50)
== END 2024-05-23 03:19 | disposition home or self-care (01) ==
PROVIDERS: Visit Provider Naturopath
DX: R00.2 Palpitations (principal); R53.83 Other fatigue; R11.2 Nausea with vomiting, unspecified; M25.50 Pain in unspecified joint; Z13.220 Encounter for screening for lipoid disorders; E55.9 Vitamin D deficiency, unspecified
CPT/HCPCS: 36415; 80053; 80061; 82172; 82306; 82627; 83090; 83695; 85652; 86141; 82607; 82626; 82728; 82746; 83036; 83540; 83550; 83735; 84207; 84439; 84443; 84481; 86140; 86376

== ENCOUNTER 2024-07-30 11:53 | Outpatient (CLI) | payer OTHER, SELFPAY ==
[2024-07-30 13:08] LABS: TSH (W/Ref FT4) 2.69 uIU/mL (0.36-3.74)
[2024-07-30 22:14] LABS: Prolactin 12.1 ng/mL (See Note)
== END 2024-07-30 11:54 | disposition home or self-care (01) ==
LOC: LBO 11:53
PROVIDERS: Visit Provider Obstetrics & Gynecology
DX: N64.3 Galactorrhea not associated with childbirth (principal)
CPT/HCPCS: 36415; 84146; 84443

== ENCOUNTER 2024-09-19 01:29 | Outpatient (CLI) | payer OTHER, SELFPAY ==
[2024-09-19 10:35] LABS: Vitamin D 25 Total 31 ng/mL (30-100)
[2024-09-19 12:50] LABS: Iron 46 ug/dL (50-170); Total Iron Binding Capacity 386 ug/dL (250-450); Transferrin Sat 12 % (15-50)
[2024-09-19 13:12] LABS: Ferritin 45 ng/mL (8-252); TSH 2.55 uIU/mL (0.36-3.74)
[2024-09-19 13:21] LABS: Folate > 20.0 ng/mL (8.6-20.0)
[2024-09-19 13:36] LABS: FREE T4 0.96 ng/dL (0.76-1.46)
[2024-09-19 13:44] LABS: Vitamin B12 643 pg/mL (193-986)
[2024-09-19 17:52] LABS: CRP, High Sensitivity >15.00 mg/L (See Note)
[2024-09-19 18:02] LABS: T3,Free 5.1 pg/mL (2.8-5.3)
[2024-09-22 13:45] LABS: Apolipoprotein A1, S 116 mg/dL (>=140); Apolipoprotein B, S 120 mg/dL (See Comment)
[2024-09-24 10:45] LABS: Pyridoxal 5-Phosphate (PLP), P 19 mcg/L (5-50)
== END 2024-09-19 01:30 | disposition home or self-care (01) ==
PROVIDERS: Visit Provider Naturopath
DX: E55.9 Vitamin D deficiency, unspecified (principal); E53.1 Pyridoxine deficiency; E78.5 Hyperlipidemia, unspecified; R53.82 Chronic fatigue, unspecified
CPT/HCPCS: 36415; 82172; 82306; 86141; 82607; 82728; 82746; 83540; 83550; 84207; 84439; 84443; 84481

== ENCOUNTER → 2025-02-04 02:21 | Outpatient (CLI) | payer OTHER, SELFPAY ==
--- NOTE | 2025-02-04 | DI.MRI_ITS ---
Exam(s) MR PELVIS WO/W EXAM: MR PELVIS WO/W CLINICAL HISTORY: SACRAL PAIN M53.3 SI PAIN W/ SI CHANGES ON XR EVAL FOR SACROILITIIS COMPARISON: MR MRI PELVIS WITH AND WITHOUT IV CONTRAST [id number] from 04/19/2022 TECHNIQUE: Dotarem intravenous 20 mL FINDINGS: OSSEOUS: There is no pelvic nor hip fracture or contusion pattern. No hip joint effusions. No bone marrow edema is seen. Symphysis pubis unremarkable. There is a peripherally hypointense small benign-appearing non expansile bone lesion in the right iliac bone few millimeters lateral to the right SI joint, this measuring 1.1 x 0.8 cm.. No associated cortical breakthrough. No significant enhancement. This appears unchanged from prior outside MRI of Mar. A 2nd smaller similar appearing bone lesion in the right iliac bone also exhibits stable appearance. SACROILIAC JOINTS: There is no abnormal signal in nor adjacent to the sacroiliac joints. No erosions in the SI joints. There is no enhancement in nor around the SI joints. No ankylosis. INTRAPELVIC STRUCTURES: Uterus and adnexal regions appear age-appropriate. Multiple small peripherally orientated sub cm follicles are noted in both ovaries. There is also a dominant cyst in the right ovary which measures 2.3 by 1.9 cm. Urinary bladder appears unremarkable.: IMPRESSION: 1. Sacroiliac joints appear unremarkable. No evidence of sacroiliitis no evidence of ankylosis. 2. Stable appearance of a few small non expansile peripherally sclerotic bone lesions in the right iliac bone 3. Incidentally noted is a 23 x 19 mm simple cyst in the right ovary which is most probably dominant follicle. DATA REPOSITORY:
[2025-02-04] MEDS: Gadoterate meglumine 20 ML SYRINGE IVP (10:07)
[2025-02-04] MEDS: Normal Saline Flush 10 ML SYR IVP (10:07)
== END ==
PROVIDERS: PCP Family Medicine; Visit Provider Internal Medicine Rheumatology
DX: M53.3 Sacrococcygeal disorders, not elsewhere classified (principal); N83.201 Unspecified ovarian cyst, right side
CPT/HCPCS: 72197

== ENCOUNTER 2025-02-13 03:33 | Outpatient (CLI) | payer OTHER, SELFPAY ==
[2025-02-13 10:59] LABS: C-Reactive Protein 1.07 mg/dL (<=0.50)
[2025-02-13 11:00] LABS: Creatine Kinase 61 U/L (34-145)
[2025-02-13 18:37] LABS: Hep B Core Antibody Negative (Negative)
[2025-02-15 13:26] LABS: TB Interpretation Negative (Negative); TB1 Ag minus Nil 0.00 IU/mL; TB2 Ag minus Nil 0.00 IU/mL
== END 2025-02-13 03:34 | disposition home or self-care (01) ==
PROVIDERS: Naturopath; PCP Family Medicine; Visit Provider Internal Medicine Rheumatology
DX: L40.50 Arthropathic psoriasis, unspecified (principal); Z11.59 Encounter for screening for other viral diseases; M19.90 Unspecified osteoarthritis, unspecified site
CPT/HCPCS: 36415; 82550; 86704; 86812; 87340; 86140; 86480